=== PATIENT | male | born 1960 | race Caucasian/White ===

== ENCOUNTER 2020-02-21 11:26 | Emergency (ER) | payer OTHER, SELFPAY ==
--- NOTE | ~2020-02-21 | CT_ITS ---
EXAMINATION: CTA chest abdomen pelvis DATE: 02/21/2020 18:03 INDICATION: Left flank pain, history of pulmonary embolism, tobacco use TECHNIQUE: Computed tomographic angiography (CTA) of the chest, abdomen, and pelvis was performed wit h 100 mL Omnipque-350 intravenous contrast. Maximum intensity projection 3D-reconstructions of the ao rta and other arteries were constructed by the technologist on a separate workstation. The dose-lengt h product (DLP) was 1852.73 mGy-cm. Automated exposure control and iterative reconstruction technique were employed. COMPARISON: None. FINDINGS: CHEST CTA: There is no aneurysm or dissection of the thoracic aorta. The heart size is normal. There is a 1.8 cm left thyroid nodule. Although slightly limited by respiratory motion artifact, no focal airspace op[place] cities are identified. There is no pleural effusion or pneumothorax. No pathologically enlarged thora cic lymph nodes are identified. The heart size is normal. Healed bilateral rib fractures are noted. ABDOMEN AND PELVIS CTA: There is no aneurysm or dissection of the abdominal aorta. The celiac axis, superior mesenteric arter y, and inferior mesenteric artery are unremarkable. There is calcified atherosclerosis without stenos is in the proximal renal arteries. Single renal arteries are present bilaterally. A filter is noted i n the inferior vena cava. There is calcified atherosclerosis of the origin of the right internal juan c artery with moderate stenosis. The liver is diffusely low in attenuation when compared with the spl een, consistent with hepatic steatosis. The spleen, pancreas, gallbladder, and adrenal glands are nor mal. The kidneys are unremarkable. No pathologically enlarged abdominal or pelvic lymph nodes are walter ntified. There is no free intraperitoneal gas or evidence of bowel obstruction. There are umbilical a nd bilateral inguinal hernias containing fat. There are bilateral L5 pars defects with moderate loss of intervertebral disc space height at L5-S1. IMPRESSION: 1. No CT correlate for the patient's symptoms. 2. Left thyroid nodule. Consider follow-up with nonemergent thyroid ultrasound for risk stratificatio n. Reviewed, dictated and finalized at location A. IMPRESSION: 1. No CT correlate for the patient's symptoms. 2. Left thyroid nodule. Consider follow-up with nonemergent thyroid ultrasound for risk stratification.
[2020-02-21 13:05] VITALS: BP 174/11; PULSE 75; RESP 20; TEMP 37.2; O2SAT 99
[2020-02-21 13:35] LABS: Basophils Absolute Auto 0.1 K/mm3 (0.0-0.1); Basophils Percent Auto 1.1 % (0.2-1.2); Eosinophils Absolute Auto 0.1 K/mm3 (0-0.3); Eosinophils Percent Auto 1.9 % (0-4.4); Hematocrit 41.2 % (42.0-52.0); Hemoglobin 14.4 g/dL (14.0-18.0); Immature Granulocyte Absolute 0.02 K/mm3 (0.00-0.031); Immature Granulocyte Percent A 0.3 % (0-0.5); Lymphocytes Absolute Auto 1.31 K/mm3 (0.9-3.2); Lymphocytes Percent Auto 21.3 % (18.3-44.2); Mean Corpuscular Hemoglobin 31.7 pg (26-34); Mean Corpuscular Volume 90.7 fl (80-100); Mean Platelet Volume 8.8 fl (7.4-10.4); Monocytes Absolute Auto 0.5 K/mm3 (0.1-0.6); Monocytes Percent Auto 8.6 % (2.6-8.5); Neutrophils Absolute Auto 4.1 K/mm3 (1.3-6.7); Neutrophils Percent Auto 66.8 % (45.5-73.1); Platelet Count Result 254 k/mm3 (150-375); Red Blood Count 4.54 M/mm3 (4.6-6.20); White Blood Count 6.2 K/mm3 (4.5-10.0)
[2020-02-21 13:37] LABS: Add Urine Microscopic? NO; Appearance Urine Clear (Clear); Bilirubin Urine Negative (Negative); Blood Urine Negative (Negative); Color Urine Yellow (Yellow); Glucose Urine UA Negative (Negative); Ketones Urine Negative (Negative); Leukocyte Esterase Ur Negative LEU/UL (Negative); Nitrate Urine Negative (Negative); Protein Urine Negative (Negative); Specific Grav Ur 1.011 (1.001-1.035); Urobilinogen Urine Negative mg/dL (<2.0)
[2020-02-21 13:48] LABS: Anion Gap 7 mmol/L (8-16); Blood Urea Nitrogen 8 mg/dL (9-20); Calcium 9.1 mg/dL (8.4-10.2); Carbon Dioxide 27 mmol/L (22-30); Chloride 98 mmol/L (98-107); Estimated CRCL calculation 138 ml/min; Estimated Glomerular Filt Rate > 60; Glucose 93 mg/dL (75-110); Potassium 4.2 mmol/L (3.4-5.0); Sodium 132 mmol/L (137-145)
[2020-02-21 16:06] VITALS: BP 166/108; PULSE 91; RESP 18; O2SAT 97
--- NOTE | 2020-02-21 16:47 | ED.ABDPAIN ---
HPI - Abdominal Pain General Chief Complaint: Abdominal Pain <Micha Engel PA-C - Last Filed: 02/21/20 18:32> Stated Complaint: UC sent me left lower flank pain, blood in urine. <Micha Engel PA-C - Last Filed: 02/21/20 18:32> Time Seen by Provider: 02/21/20 16:40 <Micha Engel PA-C - Last Filed: 02/21/20 18:32> Source: patient and old records reviewed <Micha Engel PA-C - Last Filed: 02/21/20 18:32> Mode of arrival: ambulatory <Micha Engel PA-C - Last Filed: 02/21/20 18:32> Limitations: no limitations <LOIS Townsend Last Filed: 02/21/20 18:32> History of Present Illness HPI narrative: Patient is a 59-year-old male who presents to emergency department for evaluation of left flank pain patient developed the pain over the weekend picking an object up with a sharp stabbing pain that has been persistent is worse with certain movements activity and applying pressure to the left flank region at the level of the ribs patient notes that he has history of pulmonary embolus patient notes cough which she attributes to smoking patient is currently not on any medications patient presents in no distress denies URI symptoms vomiting urinary or bowel changes patient was seen in urgent care referred for flank pain and blood in his urine patient denies similar occurrence in the past and on arrival is noted is in no distress and does not appear uncomfortable pain does not radiate <Micha Engel PA-C - Last Filed: 02/21/20 18:32> Related Data Allergies/Adverse Reactions: Allergies Allergy/AdvReac Type Severity Reaction Status Date / Time No Known Allergies Allergy Verified 02/21/20 13:11 <Micha Engel PA-C - Last Filed: 02/21/20 18:32> Review of Systems Review of Systems: All systems reviewed & are unremarkable except as noted in HPI and below <Micha Engel PA-C - Last Filed: 02/21/20 18:32> PMFSH Past Medical History Medical History: Medical History (Updated 02/21/20 @ 18:31 by Micha Engel PA-C) Peripheral arterial disease Pulmonary embolus <Micha Engel PA-C - Last Filed: 02/21/20 18:32> Social History Social History: Social History (Updated 02/21/20 @ 16:49 by Micha Engel PA-C) Smoking status: Current every day smoker Alcohol intake: current Gender identity (if verbalized by the patient): Male Sexual Orientation (if Verbalized by the Patient): Straight or Heterosexual <Micha Engel PA-C - Last Filed: 02/21/20 18:32> Exam Narrative: Exam Narrative: GENERAL: Well-appearing, well-nourished, and in no acute distress. HEAD: Normocephalic, atraumatic. EYES: PERRLA and EOMI. ENT: Nares clear, no rhinorrhea or epistaxis. Mucous membranes moist. Oropharynx without tonsillar hypertrophy exudate or other lesions. NECK: Supple. No adenopathy or masses. No carotid bruits or JVD CHEST: Clear to auscultation. No respiratory distress. No wheezes rales or rhonchi HEART: Regular rate and rhythm. No murmur heard. Normal peripheral pulses. ABDOMEN: Soft, nontender,distended. EXTREMITIES: Normal range of motion. No edema. Tenderness of the left flank region at the level of the lower ribs no deformity or skin changes noted SKIN: Warm, dry, no rash. NEURO: No focal deficits. Alert and oriented x3. PSYCH: Normal mood and affect. <Micha Engel PA-C - Last Filed: 02/21/20 18:32> Course Course Emergency Course: Patient in the room in no distress likely with strain of the abdominal wall secondary to lifting patient also probably with bronchitis with wheezing will be treated for both sent home with an MDI advised to follow with primary care given reasons to return <Micha Engel PA-C - Last Filed: 02/21/20 18:32> Vital Signs Vital signs: Vital Signs Temperature 99.0 F 02/21/20 13:05 Pulse Rate 75 02/21/20 13:05 Respiratory Rate 20 02/21/20 13:05 Blood Pressure 174/11 H 10/0
[2020-02-21 18:14] LABS: Alanine Aminotransferase 36 U/L (4-50); Alkaline Phosphatase 83 U/L (38-126); Aspartate Amino Transferase 40 U/L (17-59); Bilirubin,Total 1.5 mg/dL (0.2-1.3); Lipase 57 U/L (23-300)
[2020-02-21 18:17] LABS: Partial Thromboplastin Time 28.5 SECONDS (22.3-36.8); Prothrombin Time 13.3 Seconds (11.1-14.7)
[2020-02-21] MEDS: methylPREDNISolone SOD SUCC 125 MG VIAL IV PUSH (18:27)
[2020-02-21 18:49] VITALS: BP 152/89; PULSE 88; RESP 17; O2SAT 96
== END 2020-02-21 18:50 | disposition home or self-care (01) ==
PROVIDERS: Emergency Medicine; Emergency Medicine Emergency Medical Services; Emergency Provider General Practice; PCP Internal Medicine
DX: R10.9 Unspecified abdominal pain (principal); J40 Bronchitis, not specified as acute or chronic; F17.200 Nicotine dependence, unspecified, uncomplicated; I73.9 Peripheral vascular disease, unspecified; Z86.711 Personal history of pulmonary embolism
CPT/HCPCS: 36415; 71275; 74174; 80048; 80076; 81003; 83690; 85025; 85610; 85730; 96374; 96375; 99284; J0131; J2930; Q9967

== ENCOUNTER 2022-11-27 13:18 | Inpatient (IN) | payer MEDICAID, SELFPAY ==
[2022-11-27] VITALS (29 sets, daily range): BP systolic 85–129; BP diastolic 62–97; PULSE 81–109; RESP 14–96; TEMP 35.7–36.6; O2SAT 19–100; BMI 28.3
--- NOTE | ~2022-11-27 | CT_ITS ---
EXAMINATION: CT abdomen pelvis wo con DATE: 11/30/2022 09:49 INDICATION: Retroperitoneal hematoma. TECHNIQUE: Computed tomography (CT) of the abdomen and pelvis was performed without intravenous contr ast. Automated exposure control and iterative reconstruction technique were employed. The dose-length product was 1732.60 mGy-cm. COMPARISON: CT abdomen and pelvis 11/27/2022, 02/21/2020 FINDINGS: The visualized portions of the lung bases demonstrate mild atelectasis. No pleural effusion . The heart size is normal. No pericardial effusion. There is diffuse hepatic steatosis. There is a 1 3 mm mass right hepatic lobe, stable from 02/21/2020, likely benign. The spleen, gallbladder, pancreas , adrenal glands, and left kidney are normal. There is a 1.9 cm cyst in right kidney. There is a filt er in the inferior vena cava. There is a large right retroperitoneal hematoma, stable from 11/27/2022. There is calcified atherosclerosis of the aorta and many of the other arteries. There are bilateral inguinal hernias containing fat. There are no pathologically enlarged lymph nodes. There is edema in the thighs. There are chronic small radiopaque foreign bodies in anterior right thigh. There are instructor knitting james bilateral L5 pars defects. There is 3 mm anterolisthesis of L5 on S1. There is moderate lower lum bar spondylosis. IMPRESSION: 1. Large right retroperitoneal hematoma, stable from 11/27/2022. 2. Diffuse hepatic steatosis. Reviewed, dictated and finalized at location A.
--- NOTE | ~2022-11-27 | CT_ITS ---
EXAMINATION: CTA chest DATE: 11/27/2022 14:37 INDICATION: Chest pain. TECHNIQUE: Computed tomographic angiography (CTA) of the chest was performed with 150 mL Omnipaque-35 0 intravenous contrast. Automated exposure control and iterative reconstruction technique were employ ed. The dose-length product was 2087.08 mGy-cm. Maximum intensity projection 3D-reconstructions of th e aorta and other arteries were constructed by the technologist on a separate workstation. COMPARISON: Chest CT 02/21/2020 FINDINGS: There is mild atelectasis in left lung. No pleural effusion. There is a 2.0 cm nodule in le ft thyroid lobe. The heart size is normal. There are coronary artery calcifications. No pericardial e ffusion. There is mild aortic atherosclerosis. No aneurysm or dissection. There is mild thoracic spon dylosis. Thoracic dextroscoliosis is noted. IMPRESSION: 1. Mild aortic atherosclerosis. No aneurysm or dissection. 2. Left thyroid nodule. Consider thyroid ultrasound for risk stratification. Reviewed, dictated and finalized at location E.
--- NOTE | ~2022-11-27 | XR_ITS ---
AP view of the pelvis and AP and lateral views of the right hip Clinical history: Pain Findings: No acute fracture or dislocation is seen. Osseous alignment is anatomic. Bilateral hip and SI joint spaces are preserved. Soft tissues are unremarkable. Impression: No significant abnormality is seen. Reviewed, dictated and finalized at location . Impression: No significant abnormality is seen.
--- NOTE | ~2022-11-27 | CT_ITS ---
Clinical Indication: Hematoma, hip pain CT Scan of the Chest, Abdomen, and Pelvis without Contrast: Technique: Contiguous sections were acquired throughout the chest, abdomen, and pelvis without IV con trast administration. Dose reduction technique was used on this scan by utilizing automated exposure control and iterative reconstruction technique. The dose-length product (DLP) was 2006.31 mGy-cm. COMPARISON: 11/30/2022 and 11/27/2022 Findings: There is no evidence of any significant mediastinal, hilar or axillary lymphadenopathy. Coronary annalisa ry calcifications are present. There is no evidence of pleural or pericardial effusion. There is discoid left upper lobe atelectasis or scarring.. Lungs are otherwise clear. The liver, spleen, pancreas, gallbladder, adrenals and kidneys are within normal limits. There are at herosclerotic calcifications of the aorta. IVC filter present. No lymphadenopathy. No bowel obstruction or bowel wall thickening. There is no evidence to suggest acute appendicitis. La rge ovoid right retroperitoneal hematoma is essentially stable from prior exam (coronal image 72). Urinary bladder is unremarkable. Prostate gland and seminal vesicles are unremarkable. Bilateral L5 p ars interarticularis defects are present. No subluxation evident. Impression: Large right retroperitoneal hematoma is unchanged. No other significant findings. Reviewed, dictated and finalized at location . Impression: Large right retroperitoneal hematoma is unchanged. No other significant findings.
--- NOTE | ~2022-11-27 | US_ITS ---
EXAMINATION: US abdomen limited DATE: 11/28/2022 08:02 INDICATION: Right lower quadrant abdominal hematoma. TECHNIQUE: Multiple grayscale and Doppler ultrasound images of the abdomen were obtained. COMPARISON: CT abdomen and pelvis 11/27/2022 FINDINGS: The right kidney is normal. There is heterogeneous echogenicity in the right lower quadrant . IMPRESSION: 1. The right lower quadrant hematoma is not well visualized by ultrasound. If imaging follow-up is de sired, CT is recommended. Reviewed, dictated and finalized at location E. IMPRESSION: 1. The right lower quadrant hematoma is not well visualized by ultrasound. If i maging follow-up is desired, CT is recommended.
--- NOTE | ~2022-11-27 | CT_ITS ---
EXAMINATION: CTA abd aorta runoff DATE: 11/27/2022 14:37 INDICATION: Abdominal pain. TECHNIQUE: Computed tomographic angiography (CTA) of the abdominal, pelvis, and both lower extremitie s was performed with 150 mL Omnipaque-350 intravenous contrast. Automated exposure control and iterat bob reconstruction technique were employed. The dose-length product was 2087 mGy-cm. Maximum intensit y projection 3D-reconstructions of the arteries were created by the technologist [facility] COMPARISON: CT abdomen and pelvis 02/21/2020 FINDINGS: ABDOMINAL AORTA AND ITS BRANCHES: Aortic atherosclerosis is noted. No aneurysm or dissection. There is no significant stenosis of arlette c axis or superior mesenteric artery. There is no significant stenosis of the renal arteries or infer ior mesenteric artery. PELVIC VASCULATURE: There is no significant stenosis of the common iliac arteries, internal iliac arteries, or external i liac arteries. RIGHT LOWER EXTREMITY VASCULATURE: There is no significant stenosis of right common femoral artery, profunda femoral artery, superficial femoral artery, popliteal artery, tibioperoneal trunk, peroneal artery, anterior tibial artery, or p osterior tibial artery. LEFT LOWER EXTREMITY VASCULATURE: There is no significant stenosis of left common femoral artery, profunda femoral artery, superficial femoral artery, popliteal artery, tibioperoneal trunk, peroneal artery, anterior tibial artery, or po sterior tibial artery. ADDITIONAL FINDINGS: There is diffuse hepatic steatosis. The gallbladder, spleen, pancreas, adrenal glands, and left kidne y are normal. There is a 2.0 cm cyst in right kidney. There is a filter in the inferior vena cava. Th ere are no dilated loops of bowel. The appendix is not visualized. There is a large right retroperito annie hematoma. There are no pathologically enlarged lymph nodes. There are bilateral inguinal hernias containing fat. There are chronic bilateral L5 pars defects. There is 3 mm anterolisthesis of L5 on S1. There is moderate lumbar spondylosis. IMPRESSION: 1. Large right retroperitoneal hematoma. 2. No significant arterial occlusive disease. Reviewed, dictated and finalized at location E.
--- NOTE | ~2022-11-27 | US_ITS ---
EXAMINATION: US thyroid DATE: 11/28/2022 08:02 INDICATION: Thyroid nodule. TECHNIQUE: Multiple ultrasound images of the thyroid were obtained. COMPARISON: Chest CT 11/27/2022 FINDINGS: The right thyroid lobe measures 5.1 x 1.6 x 1.5 cm. The left thyroid lobe measures 4.7 x 2.5 x 2.1 c m. In the left thyroid lobe, there is a 2.1 cm almost entirely cystic nodule (TI-RADS TR1). IMPRESSION: 1. Benign left thyroid nodule. No follow-up is needed. Reviewed, dictated and finalized at location E.
--- NOTE | ~2022-11-27 | US_ITS ---
US venous doppler [facility] DATE: 11/28/2022 08:02 INDICATION: Edema of the lower extremities TECHNIQUE: Real-time and color flow imaging and Doppler analysis of the veins of both lower extremiti es COMPARISON: July 15, 2011 venous duplex examination of the lower extremities, reported normal FINDINGS: Thrombus is identified within the greater saphenous veins bilaterally in addition to bilate ral common femoral, femoral and popliteal veins. IMPRESSION: Extensive bilateral deep venous thrombosis Thrombus is identified within both greater saphenous veins. Dr. Chinchilla telephoned the report on 11/28/2022 at 1053 hours to Nurse Maddison. Reviewed, dictated and finalized at [facility]. Reviewed, dictated and finalized at [facility]. IMPRESSION: Extensive bilateral deep venous thrombosis Thrombus is identified within both greater saphenous veins. Dr. Chinchilla telephoned the report on 11/28/2022 at 1053 hours to Rosalinda Washburn.
--- NOTE | 2022-11-27 13:52 | ECG_ITS ---
Measurements Intervals [place] Rate: 105 P: 35 NH: 159 QRS: 22 QRSD: 84 T: 34 QT: 313 QTc: 414 Interpretive Statements SINUS TACHYCARDIA DELAYED PRECORDIAL R/S TRANSITION BASELINE ARTIFACT- I, II, III, AVR, AVL, AVF, V6 ABNORMAL ECG NO PREVIOUS ECG AVAILABLE FOR COMPARISON Electronically Signed On 11-27-2022 14:59:36 CDT by Rafal Carpenter D.O.
[2022-11-27 14:01] LABS: Basophils Absolute Auto 0.1 K/mm3 (0.0-0.1); Basophils Percent Auto 0.5 % (0.2-1.2); Eosinophils Percent Auto 0.4 % (0-4.4); Hematocrit 41.4 % (42.0-52.0); Hemoglobin 14.1 g/dL (14.0-18.0); Immature Granulocyte Absolute 0.08 K/mm3 (0.00-0.031); Immature Granulocyte Percent A 0.7 % (0-0.5); Lymphocytes Absolute Auto 1.11 K/mm3 (0.9-3.2); Lymphocytes Percent Auto 9.7 % (18.3-44.2); Mean Corpuscular HGB Conc 34.1 g/dl (32-36); Mean Corpuscular Hemoglobin 32.7 pg (26-34); Mean Corpuscular Volume 96.1 fl (80-100); Mean Platelet Volume 9.2 fl (7.4-10.4); Monocytes Absolute Auto 1.1 K/mm3 (0.1-0.6); Monocytes Percent Auto 9.7 % (2.6-8.5); Platelet Count Result 175 k/mm3 (150-375); Red Blood Count 4.31 M/mm3 (4.6-6.20); Red Cell Distribution Width 13.5 % (11.5-14.5); White Blood Count 11.4 K/mm3 (4.5-10.0)
[2022-11-27 14:12] LABS: Alanine Aminotransferase 33 U/L (6-50); Albumin Level 4.1 g/dL (3.5-5.1); Alkaline Phosphatase 126 U/L (38-126); Anion Gap 13 mmol/L (8-16); Aspartate Amino Transferase 53 U/L (17-59); Bilirubin,Total 2.7 mg/dL (0.2-1.3); Blood Urea Nitrogen 10 mg/dL (9-20); Carbon Dioxide 15 mmol/L (22-30); Chloride 93 mmol/L (98-107); Estimated CRCL calculation 103 ml/min; Estimated Glomerular Filt Rate > 60; Glucose 185 mg/dL (65-110); Lipase 54 U/L (23-300); Sodium 121 mmol/L (137-145)
--- NOTE | 2022-11-27 14:31 | ED.GENADULT ---
HPI - General Adult General Chief complaint: Abdominal Pain <Delvis Vu PA-C - Last Filed: 11/27/22 18:36> Stated complaint: ab pain, RLQ, vomiting x2 days <Delvis Vu PA-C - Last Filed: 11/27/22 18:36> Time Seen by Provider: 11/27/22 14:01 <Delvis Vu PA-C - Last Filed: 11/27/22 18:36> Source: patient <Delvis Vu PA-C - Last Filed: 11/27/22 18:36> Mode of arrival: ambulatory <Delvis Vu PA-C - Last Filed: 11/27/22 18:36> Limitations: no limitations <Delvis Vu PA-C - Last Filed: 11/27/22 18:36> History of Present Illness HPI narrative: This is a 62-year-old male who presents to the ED via EMS with chief complaint of lower abdominal pain beginning 2 days ago and continuously worsening until today. Patient states the pain started out in the back and has since localized to the lower abdomen all across the belly. He reports while in the triage area he started to have some left foot numbness which was very new to him. He states he has never had anything like this in the past. Reports associated nausea and vomiting. Reports diaphoresis. Also notes some difficulty with urination over the past couple of days. Denies chest pain, shortness of breath, cough, headache, LOC. <Delvis Vu PA-C - Last Filed: 11/27/22 18:36> Related Data Home medications: Home Medications Medication Instructions Recorded Confirmed No Home Medications 11/27/22 11/27/22 <Delvis Vu PA-C - Last Filed: 11/27/22 18:36> Allergies/adverse reactions: Allergies Allergy/AdvReac Type Severity Reaction Status Date / Time No Known Allergies Allergy Verified 02/21/20 13:11 <Delvis Vu PA-C - Last Filed: 11/27/22 18:36> [facility] Past Medical History Medical History: Medical History (Updated 11/27/22 @ 18:07 by Delvis Vu PA-C) Peripheral arterial disease Pulmonary embolus <Delvis Vu PA-C - Last Filed: 11/27/22 18:36> Family History Family History: Family History (Updated 11/27/22 @ 20:19 by Shawn Alfred RN) Mother Atrial fibrillation <Delvis Vu PA-C - Last Filed: 11/27/22 18:36> Social History Social History: Social History (Updated 02/21/20 @ 16:49 by Micha EngelLOIS) Smoking status: Current every day smoker Tobacco type: cigarettes Alcohol intake: current Lack of Transportation: No Lack of Food: Never True Current Housing: I Have Housing Concerned About Future Housing: No Difficulty Paying Gas/Electric Bills: YES Difficulty Paying for Meds: YES Currently Unemployed: No Education: High School Diploma/GED Difficulty w/ Childcare or Family Care: No Gender identity (if verbalized by the patient): Male Sexual Orientation (if Verbalized by the Patient): Straight or Heterosexual Spiritual care concerns: No <Delvis Vu PA-C - Last Filed: 11/27/22 18:36> Exam Narrative: GENERAL: Appears in pain. Diaphoretic. Laying on his side. HEAD: Normocephalic, atraumatic. EYES: PERRLA and EOMI. ENT: Nares clear, no rhinorrhea or epistaxis. Mucous membranes moist. Oropharynx without tonsillar hypertrophy exudate or other lesions. NECK: Supple. No adenopathy or masses. CHEST: No respiratory distress. Clear to auscultation. No wheezes rales or rhonchi HEART: Regular rate and rhythm. No murmur heard. ABDOMEN: Obese abdomen. no bruising. Right lower quadrant, suprapubic, and left lower quadrant tenderness present. No flank tenderness. Soft, nondistended, normal active bowel sounds. MSK: Bilateral feet are erythematous and slightly cool to touch. Diminished pulses bilaterally. SKIN: Warm, dry, no rash. NEURO: Alert and oriented x3. No focal deficits. PSYCH: Normal mood and affect. <Delvis Vu PA-C - Last Filed: 11/27/22 18:36> Course HOTEL RECEPTIONIST/PA Physician Supervision For this patient encounter, I reviewed the HOTEL RECEPTIONIST or PA documentation, treatment plan, and I was responsible f
[2022-11-27] MEDS: SODIUM CHLORIDE 0.9% IV 1,000 ML 999 ML IV CONT ×2 (14:45→14:46)
[2022-11-27] MEDS: ONDANSETRON INJ 4 MG/2 ML VIAL IV PUSH (14:46)
[2022-11-27] MEDS: fentaNYL CITRATE INJ (*CRX) 100 MCG/2 ML VIAL 50 MCG IV PUSH ×2 (14:46→15:49)
[2022-11-27 15:01] LABS: CRP 6.4 mg/dL (<1.0)
[2022-11-27 15:19] LABS: Appearance Urine Clear (Clear); Bacteria Urine None Seen /hpf; Bilirubin Urine Negative (Negative); Blood Urine Negative (Negative); Color Urine Yellow (Yellow); Glucose Urine UA Trace mg/dL (Negative); Ketones Urine Negative (Negative); Leukocyte Esterase Ur Negative LEU/UL (Negative); Nitrate Urine Negative (Negative); Non Pathogenic Casts 0-2; Protein Urine 1+ mg/dL (Negative); RBC Urine 0-2 /hpf (0-2); Squamous Epithelial Cell Urine None seen /hpf (Few); pH Urine 7.5 (5.0-9.0)
[2022-11-27 15:22] LABS: Add Urine Microscopic? YES
--- NOTE | 2022-11-27 16:53 | PC.NURSE ---
Patient report given to JAH Martinez. All questions answered and care of patient transferred.
[2022-11-27] MEDS: MORPHINE SULFATE (*CRX) 4 MG/ML INJ IV PUSH ×3 (18:16→23:38)
[2022-11-27 18:27] LABS: Hematocrit 36.4 % (42.0-52.0); Hemoglobin 12.6 g/dL (14.0-18.0)
--- NOTE | 2022-11-27 20:21 | ADMGEN ---
This patient, Dre Yoder, was admitted to [facility] Surg Room 329-01. Patient/family oriented to hospital policies and general routines including ID bracelet, bed and alarms, visiting hours, pain management, procedures, bathroom and other care routines, personal items, smoking policy, room service/diet, and visiting hours. Information on how to activate the Rapid Response Team has been discussed. Patient/Family are encouraged to report perceived risks to care and to ask questions if they do not understand what they are told or what they should do.
--- NOTE | 2022-11-27 21:06 | PM.IMHP ---
H&P: HPI History of Present Illness Date/Time: 11/27/22 21:06 Chief Complaint: Abdominal pain Narrative: This is a 62-year-old male patient who came to the emergency room with a chief complaint of lower abdominal pain that began 2 days ago. The pain gets worse with movement. The patient stated that he has right flank pain and it has moved to his right lower quadrant across his abdomen. The patient stated he has not lifted anything heavy nor has he had any injury. The patient is not on any blood thinners. The patient was complaining of numbness to the right foot in triage. The patient also is having dark urine and decreased urination. He denies any fever chills any chest pain or shortness of breath or any headache. His white count is 11.4. H&H is 12.6 and 36.4. Earlier his H&H was normal 14.1 and 41.4. Chest CTA was read as the following. Mild aortic atherosclerosis. No aneurysm or dissection. 2. Left thyroid nodule. Consider thyroid ultrasound for risk stratification. Aortic with runoff CTA was read as1.? Large right retroperitoneal hematoma. 2. No significant arterial occlusive disease. His platelets are low at 175. The patient was given fentanyl, Zofran and 2 L of IV fluids. The patient is being admitted to observation status on the date of service 11/27/2022. Review of Systems Review of Systems: All systems reviewed & are unremarkable except as noted in HPI and below Constitutional: Constitutional: Reports as per HPI and Reports no additional constitutional complaints Eyes: Eyes: Reports as per HPI and Reports no additional eye complaints ENT: Reports system reviewed and no additional complaints, except as documented and Reports Normal hearing present Cardiovascular: Cardiovascular: Reports no additional cardiovascular complaints Respiratory: Respiratory: Reports no additional respiratory complaints and Reports no additional respiratory complaints Gastrointestinal: Gastrointestinal: Reports as per HPI and Reports no additional gastrointestinal complaints Musculoskeletal: Musculoskeletal: Reports no additional musculoskeletal complaints Integumentary/Breasts: Skin/Breast: Reports system reviewed and no additional complaints, except as docu and Reports as per HPI Neurologic: Reports system reviewed and no additional complaints, except as documented, Reports as per HPI and Reports Normal hearing present Psychiatric: Psychiatric: Reports no additional psychiatric complaints and Reports as per HPI Endocrine: Endocrine: Reports no additional endocrine complaints Hematologic/Lymphatic: Hematologic/Lymphatic: Reports no additional hematologic/lymphatic complaints Allergic/Immunologic: Allergic/Immunologic: Reports no additional allergic/immunologic complaints [facility] Past Medical History Medical History (Updated 11/27/22 @ 23:58 by Aleksandra Gauthier NP) Peripheral arterial disease Pulmonary embolus Surgical History Surgical History (Updated 11/27/22 @ 23:47 by Aleksandra Gauthier NP) History of shoulder surgery Status post surgical removal of neoplasm of 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 Family History Family History Mother Atrial fibrillation Social History Social History (Updated 11/27/22 @ 23:49 by Aleksandra Gauthier NP) Social History: The patient is and has no biological children. He has a stepdaughter who is a nurse practitioner. The patient retired from [employer]. He denies any alcohol marijuana or illicit drugs. His is the durable power criminal defense attorney for healthcare. Code status full code Smoking status: Current every day smoker Tobacco type: cigarettes Alcohol intake: current Lack of Transportation: No Lack of Food: Never True Current Housing: I Have Housing Concerned About Future Housing: No Difficulty Paying Gas/Electric Bills: YES Difficulty Paying for Meds: YES Currently Unemployed: No
[2022-11-28 01:27] LABS: Hematocrit 34.9 % (42.0-52.0); Hemoglobin 11.8 g/dL (14.0-18.0)
[2022-11-28] MEDS: MORPHINE SULFATE (*CRX) 4 MG/ML INJ IV PUSH ×7 (02:47→22:47)
[2022-11-28 06:00] VITALS: BP 150/81; PULSE 87; RESP 20; TEMP 36.4; O2SAT 97
[2022-11-28 06:38] LABS: Basophils Percent Auto 0.4 % (0.2-1.2); Eosinophils Absolute Auto 0.1 K/mm3 (0-0.3); Eosinophils Percent Auto 0.6 % (0-4.4); Hematocrit 33.3 % (42.0-52.0); Hemoglobin 11.1 g/dL (14.0-18.0); Immature Granulocyte Absolute 0.07 K/mm3 (0.00-0.031); Immature Granulocyte Percent A 0.7 % (0-0.5); Lymphocytes Absolute Auto 1.49 K/mm3 (0.9-3.2); Lymphocytes Percent Auto 14.5 % (18.3-44.2); Mean Corpuscular HGB Conc 33.3 g/dl (32-36); Mean Corpuscular Hemoglobin 32.6 pg (26-34); Mean Corpuscular Volume 97.7 fl (80-100); Mean Platelet Volume 9.5 fl (7.4-10.4); Monocytes Absolute Auto 1.3 K/mm3 (0.1-0.6); Monocytes Percent Auto 12.2 % (2.6-8.5); Neutrophils Absolute Auto 7.4 K/mm3 (1.3-6.7); Neutrophils Percent Auto 71.6 % (45.5-73.1); Platelet Count Result 122 k/mm3 (150-375); Red Blood Count 3.41 M/mm3 (4.6-6.20); Red Cell Distribution Width 13.4 % (11.5-14.5); White Blood Count 10.3 K/mm3 (4.5-10.0)
[2022-11-28 06:50] LABS: Alanine Aminotransferase 28 U/L (6-50); Albumin Level 3.6 g/dL (3.5-5.1); Alkaline Phosphatase 97 U/L (38-126); Anion Gap 9 mmol/L (8-16); Aspartate Amino Transferase 40 U/L (17-59); Bilirubin,Total 1.5 mg/dL (0.2-1.3); Blood Urea Nitrogen 15 mg/dL (9-20); Calcium 8.4 mg/dL (8.4-10.2); Carbon Dioxide 21 mmol/L (22-30); Chloride 93 mmol/L (98-107); Estimated CRCL calculation 66 ml/min; Estimated Glomerular Filt Rate > 60; Glucose 126 mg/dL (65-110); Magnesium 2.3 mg/dL (1.6-2.3); Potassium 4.6 mmol/L (3.4-5.0); Sodium 123 mmol/L (137-145)
[2022-11-28] MEDS: SODIUM CHLORIDE 0.9% IV 1,000 ML 100 ML IV CONT ×2 (08:52)
[2022-11-28 09:20] LABS: Creatinine Urine 317.1 mg/dL
[2022-11-28 09:53] LABS: Sodium Urine Random < 5 meq/L
--- NOTE | 2022-11-28 12:21 | P.PNIM_ITS ---
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, bilateral Code(s): I82.453 - Acute embolism and thrombosis of peroneal vein, bilateral Status: Acute Assessment and Plan: * Chronic since 2010 (11/28/2022 reviewed old chart notes and venous dopplers) * Inferior vena cava filter placed 2010 prior to tx for 6 months with warfarin * Sedentary lifestyle, morbid obesity, smoking are likely contributing factors * Thrombophilia due to occult neoplasm is a consideration * Genetic thrombophilia less likely w/o family hx * In the presence of an acute bleed and with IVC filter in place, NO anticoagulation now (3) Anemia due to acute blood loss: Code(s): D62 - Acute posthemorrhagic anemia Status: Acute Assessment and Plan: * Relatively stable since admission * 11/28/2022 Hgb 11.1 * F/u h/h * Stool for occult blood (4) Alcohol use, unspecified with unspecified alcohol-induced disorder: Code(s): F10.99 - Alcohol use, unspecified with unspecified alcohol-induced disorder Status: Acute Assessment and Plan: * [place] protocol * PRN lorazepam (5) Thyroid nodule: Code(s): E04.1 - Nontoxic single thyroid nodule Status: Acute Assessment and Plan: * Discovered on Chest CTA * U/s pending (6) Fatty liver due to alcoholism: Code(s): K70.0 - Alcoholic fatty liver Status: Acute Assessment and Plan: * 11/28/22 d/w pt and his spouse his excessive alcohol intake (7) Inguinal hernia bilateral, non-recurrent: Qualifiers: Obstruction and gangrene presence: without obstruction or gangrene Recurrence: not specified as recurrent Qualified Code(s): K40.20 - Bilateral inguinal hernia, without obstruction or gangrene, not specified as recurrent Code(s): K40.20 - Bilateral inguinal hernia, without obstruction or gangrene, not specified as recurrent Status: Acute Assessment and Plan: * Asymptomatic (8) Nicotine dependence: Qualifiers: Nicotine product type: cigarettes Substance use status: uncomplicated Qualified Code(s): F17.210 - Nicotine dependence, cigarettes, uncomplicated Code(s): F17.200 - Nicotine dependence, unspecified, uncomplicated Status: Acute Assessment and Plan: * 11/28/2022 he declined a nicotine patch (9) Chronic low back pain with bilateral sciatica: Qualifiers: Back pain laterality: bilateral Qualified Code(s): M54.42 - Lumbago with sciatica, left side; M54.41 - Lumbago with sciatica, right side; G89.29 - Other chronic pain Code(s): M54.41 - Lumbago with sciatica, right side; M54.42 - Lumbago with sciatica, left side; G89.29 - Other chronic pain Status: Acute Assessment and Plan: * Severe pain, worse with standing, with bilateral leg pain * CTA Abd/Pelvis showed bilateral L5 pars defect and 3 mm anterolisthesis L5 on S1 * Suspect spinal stenosis Subjective Date/time seen: 11/28/22 12:21 Interval history: 62-year-old gentleman with chronic low back pain radiating to both posterior thighs worse on the right an
--- NOTE | 2022-11-28 12:21 | PM.IMPN ---
Progress Note: A&P Assessment and Plan (1) Nontraumatic retroperitoneal hematoma: Code(s): K66.1 - Hemoperitoneum Status: Acute Assessment and Plan: Etiology unclear Abd/Pelvis CTA w/o obvious vascular abnormality Has only mild thrombocytopenia and no other abnormal bleeding or bruising PT, PTT pending Monitor h/h (2) Deep venous thrombosis (DVT) of both peroneal veins: Qualifiers: Chronicity: chronic Qualified Code(s): I82.553 - Chronic embolism and thrombosis of peroneal vein, bilateral Code(s): I82.453 - Acute embolism and thrombosis of peroneal vein, bilateral Status: Acute Assessment and Plan: Chronic since 2010 (11/28/2022 reviewed old chart notes and venous dopplers) Inferior vena cava filter placed 2010 prior to tx for 6 months with warfarin Sedentary lifestyle, morbid obesity, smoking are likely contributing factors Thrombophilia due to occult neoplasm is a consideration Genetic thrombophilia less likely w/o family hx In the presence of an acute bleed and with IVC filter in place, NO anticoagulation now (3) Anemia due to acute blood loss: Code(s): D62 - Acute posthemorrhagic anemia Status: Acute Assessment and Plan: Relatively stable since admission 11/28/2022 Hgb 11.1 F/u h/h Stool for occult blood (4) Alcohol use, unspecified with unspecified alcohol-induced disorder: Code(s): F10.99 - Alcohol use, unspecified with unspecified alcohol-induced disorder Status: Acute Assessment and Plan: [facility] protocol PRN lorazepam (5) Thyroid nodule: Code(s): E04.1 - Nontoxic single thyroid nodule Status: Acute Assessment and Plan: Discovered on Chest CTA U/s pending (6) Fatty liver due to alcoholism: Code(s): K70.0 - Alcoholic fatty liver Status: Acute Assessment and Plan: 11/28/22 d/w pt and his spouse his excessive alcohol intake (7) Inguinal hernia bilateral, non-recurrent: Qualifiers: Obstruction and gangrene presence: without obstruction or gangrene Recurrence: not specified as recurrent Qualified Code(s): K40.20 - Bilateral inguinal hernia, without obstruction or gangrene, not specified as recurrent Code(s): K40.20 - Bilateral inguinal hernia, without obstruction or gangrene, not specified as recurrent Status: Acute Assessment and Plan: Asymptomatic (8) Nicotine dependence: Qualifiers: Nicotine product type: cigarettes Substance use status: uncomplicated Qualified Code(s): F17.210 - Nicotine dependence, cigarettes, uncomplicated Code(s): F17.200 - Nicotine dependence, unspecified, uncomplicated Status: Acute Assessment and Plan: 11/28/2022 he declined a nicotine patch (9) Chronic low back pain with bilateral sciatica: Qualifiers: Back pain laterality: bilateral Qualified Code(s): M54.42 - Lumbago with sciatica, left side; M54.41 - Lumbago with sciatica, right side; G89.29 - Other chronic pain Code(s): M54.41 - Lumbago with sciatica, right side; M54.42 - Lumbago with sciatica, left side; G89.29 - Other chronic pain Status: Acute Assessment and Plan: Severe pain, worse with standing, with bilateral leg pain CTA Abd/Pelvis showed bilateral L5 pars defect and 3 mm anterolisthesis L5 on S1 Suspect spinal stenosis Subjective Date/time seen: 11/28/22 12:21 Interval history: 62-year-old gentleman with chronic low back pain radiating to both posterior thighs worse on the right and left quit his job 1 year ago and has been very sedentary since then. He is not able to stand more than 5-10 minutes before having severe low back pain radiating to legs that forces him to rest. Denied weakness or numbness. Denied trauma. Worked construction doing mainly concrete work. Does smoke 2 packs of cigarettes per day and drinks 12 more beers per day. Denied use of other recreational substances
[2022-11-28 12:28] LABS: Free T4 Free Thyroxine Reflex 1.55 ng/dL (0.78-2.19)
[2022-11-28 13:23] LABS: Hematocrit 32.4 % (42.0-52.0); Hemoglobin 11.1 g/dL (14.0-18.0)
[2022-11-28 13:25] LABS: Total Triiodothyronine (T3) 1.19 NG/ML (0.97-1.69)
[2022-11-28 13:33] LABS: Sodium 121 mmol/L (137-145)
[2022-11-28 13:36] LABS: Iron 57 ug/dL (49-181)
[2022-11-28 13:39] LABS: INR 1.2; Prothrombin Time 15.4 Seconds (11.1-14.7)
[2022-11-28 13:46] LABS: Percent Iron Saturation 18 % (20-50)
[2022-11-28 14:00] VITALS: BP 110/72; PULSE 92; RESP 18; TEMP 36.6; O2SAT 97
[2022-11-28] MEDS: LORazepam INJ (*CRX) 2 MG/ML VIAL 1 MG IV PUSH (16:21)
[2022-11-28] MEDS: SODIUM CHLORIDE 0.9% IV 1,000 ML 150 ML IV CONT (17:10)
[2022-11-28 18:07] LABS: Hematocrit 31.8 % (42.0-52.0); Hemoglobin 10.9 g/dL (14.0-18.0)
[2022-11-28 18:21] LABS: Sodium 120 mmol/L (137-145)
[2022-11-28] MEDS: MELATONIN 5 MG TABLET PO ×2 (20:43)
[2022-11-28 22:00] VITALS: BP 124/82; PULSE 113; RESP 22; TEMP 36.4; O2SAT 97
[2022-11-29] MEDS: SODIUM CHLORIDE 0.9% IV 1,000 ML 150 ML IV CONT ×3 (01:54→16:58)
[2022-11-29] MEDS: MORPHINE SULFATE (*CRX) 4 MG/ML INJ IV PUSH ×6 (03:29→23:48)
[2022-11-29 06:00] VITALS: BP 146/94; PULSE 67; RESP 22; TEMP 36.6; O2SAT 96
[2022-11-29 07:48] LABS: Hematocrit 30.2 % (42.0-52.0); Hemoglobin 10.1 g/dL (14.0-18.0); Immature Platelet Fraction Pct 6.3 % (0.9-11.2); Mean Corpuscular HGB Conc 33.4 g/dl (32-36); Mean Corpuscular Hemoglobin 33.6 pg (26-34); Mean Corpuscular Volume 100.3 fl (80-100); Mean Platelet Volume 9.8 fl (7.4-10.4); Platelet Count Result 146 k/mm3 (150-375); Red Blood Count 3.01 M/mm3 (4.6-6.20); Red Cell Distribution Width 13.2 % (11.5-14.5); White Blood Count 9.9 K/mm3 (4.5-10.0)
[2022-11-29 10:46] LABS: Hematocrit 30.1 % (42.0-52.0)
[2022-11-29 11:01] LABS: Anion Gap 5 mmol/L (8-16); Blood Urea Nitrogen 18 mg/dL (9-20); Calcium 8.2 mg/dL (8.4-10.2); Carbon Dioxide 24 mmol/L (22-30); Chloride 94 mmol/L (98-107); Cholesterol 179 mg/dL (0-200); Estimated CRCL calculation 97 ml/min; Estimated Glomerular Filt Rate > 60; Glucose 118 mg/dL (65-110); HDL Direct 41 mg/dL; Potassium 5.1 mmol/L (3.4-5.0); Sodium 123 mmol/L (137-145); Triglycerides 115 mg/dL (<150)
[2022-11-29 11:15] LABS: LDL Cholesterol Direct 106 mg/dL
--- NOTE | 2022-11-29 12:35 | PC.NURSE ---
I spoke with Dr. Sapp regarding pt's pain meds. Pt has been receiving 4mg morphine IVP and is frequently asking for it within an hour of administration. When asked about the pain level, pt always states it is a 7.5 to an 8 out of 10. I explained all this Dr. Sapp and asked if there was something else that could be ordered as the morphine is clearly not working or holding. Dr. Sapp informed me that pt is complaining of chronic back pain so to give 650mg of acetaminophen q4 prn and to not give any more morphine. Orders were entered.
[2022-11-29 14:00] VITALS: BP 126/84; PULSE 88; RESP 18; TEMP 37.1; O2SAT 99
--- NOTE | 2022-11-29 14:19 | P.PNIM_ITS ---
Progress Note: A&P Assessment and Plan (1) Nontraumatic retroperitoneal hematoma: Code(s): K66.1 - Hemoperitoneum Status: Acute Assessment and Plan: * Etiology unclear * Abd/Pelvis CTA w/o obvious vascular abnormality on 11/27/2022 * Has only mild thrombocytopenia and no other abnormal bleeding or bruising * PT 15.4/INR 1.2, PTT 34 * Monitor h/h * F/u CT 11/30 * Ok for outpatient f/u if CT stable, H/h stable, and sodium adequately corrected (2) Deep venous thrombosis (DVT) of both peroneal veins: Qualifiers: Chronicity: chronic Qualified Code(s): I82.553 - Chronic embolism and thrombosis of peroneal vein, bilateral Code(s): I82.453 - Acute embolism and thrombosis of peroneal vein, bilateral Status: Acute Assessment and Plan: * Chronic since 2010 (11/28/2022 reviewed old chart notes and venous dopplers) * Inferior vena cava filter placed 2010 prior to tx for 6 months with warfarin * Sedentary lifestyle, morbid obesity, smoking are likely contributing factors * Thrombophilia due to occult neoplasm is a consideration * Genetic thrombophilia less likely w/o family hx * In the presence of an acute bleed and with IVC filter in place, NO anticoagulation now (3) Hyponatremia: Code(s): E87.1 - Hypo-osmolality and hyponatremia Status: Acute Assessment and Plan: * Arpita < 5, c/w prerenal * U/o improving with increased IVF * 11/29 increase IV saline to 175 ml/hr * F/u lab (4) Anemia due to acute blood loss: Code(s): D62 - Acute posthemorrhagic anemia Status: Acute Assessment and Plan: * Relatively stable since admission * 11/28/2022 Hgb 11.1, 11/29 10.1 in AM, 10.0 at noon * F/u h/h (expect some decline with hydration) * Stool for occult blood (5) Alcohol use, unspecified with unspecified alcohol-induced disorder: Code(s): F10.99 - Alcohol use, unspecified with unspecified alcohol-induced disorder Status: Acute Assessment and Plan: * [facility] protocol * PRN lorazepam * 11/29/2022 no s/sx alcohol w/d (6) Thyroid nodule: Code(s): E04.1 - Nontoxic single thyroid nodule Status: Acute Assessment and Plan: * Discovered on Chest CTA * U/s with benign cyst * TSH WNL (7) Fatty liver due to alcoholism: Code(s): K70.0 - Alcoholic fatty liver Status: Acute Assessment and Plan: * 11/28/22 d/w pt and his spouse his excessive alcohol intake (8) Chronic low back pain with bilateral sciatica: Qualifiers: Back pain laterality: bilateral Qualified Code(s): M54.42 - Lumbago with sciatica, left side; M54.41 - Lumbago with sciatica, right side; G89.29 - Other chronic pain Code(s): M54.41 - Lumbago with sciatica, right side; M54.42 - Lumbago with sciatica, left side; G89.29 - Other chronic pain Status: Acute Assessment and Plan: * Severe pain, worse with standing, with bilateral leg pain * CTA Abd/Pelvis showed bilateral L5 pars defect and 3 mm anterolisthesis L5 on S1 * Suspect spinal stenosis * Will need outpatient f/u (9) Inguinal hernia bilateral, non-recurrent: Qualifiers: Obstruction and gangrene presence: without obstruction or gangrene Recurrence: not specified as recurrent Qualified Code(s): K40.20 - Bilateral inguinal hernia, without obstruction or gangrene, not specified as recurrent Code(s): K40.20 - Bilateral inguinal hernia, without obstruction or gangrene, not specified as recurrent Status: Acute Assessment and Plan: * Asymptomatic (10) Nicotine dependence: Qu
--- NOTE | 2022-11-29 14:19 | PM.IMPN ---
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, bilateral Code(s): I82.453 - Acute embolism and thrombosis of peroneal vein, bilateral Status: Acute Assessment and Plan: Chronic since 2010 (11/28/2022 reviewed old chart notes and venous dopplers) Inferior vena cava filter placed 2010 prior to tx for 6 months with warfarin Sedentary lifestyle, morbid obesity, smoking are likely contributing factors Thrombophilia due to occult neoplasm is a consideration Genetic thrombophilia less likely w/o family hx In the presence of an acute bleed and with IVC filter in place, NO anticoagulation now (3) Hyponatremia: Code(s): E87.1 - Hypo-osmolality and hyponatremia Status: Acute Assessment and Plan: Arpita < 5, c/w prerenal U/o improving with increased IVF 11/29 increase IV saline to 175 ml/hr F/u lab (4) Anemia due to acute blood loss: Code(s): D62 - Acute posthemorrhagic anemia Status: Acute Assessment and Plan: Relatively stable since admission 11/28/2022 Hgb 11.1, 11/29 10.1 in AM, 10.0 at noon F/u h/h (expect some decline with hydration) Stool for occult blood (5) Alcohol use, unspecified with unspecified alcohol-induced disorder: Code(s): F10.99 - Alcohol use, unspecified with unspecified alcohol-induced disorder Status: Acute Assessment and Plan: [facility] protocol PRN lorazepam 11/29/2022 no s/sx alcohol w/d (6) Thyroid nodule: Code(s): E04.1 - Nontoxic single thyroid nodule Status: Acute Assessment and Plan: Discovered on Chest CTA U/s with benign cyst TSH WNL (7) Fatty liver due to alcoholism: Code(s): K70.0 - Alcoholic fatty liver Status: Acute Assessment and Plan: 11/28/22 d/w pt and his spouse his excessive alcohol intake (8) Chronic low back pain with bilateral sciatica: Qualifiers: Back pain laterality: bilateral Qualified Code(s): M54.42 - Lumbago with sciatica, left side; M54.41 - Lumbago with sciatica, right side; G89.29 - Other chronic pain Code(s): M54.41 - Lumbago with sciatica, right side; M54.42 - Lumbago with sciatica, left side; G89.29 - Other chronic pain Status: Acute Assessment and Plan: Severe pain, worse with standing, with bilateral leg pain CTA Abd/Pelvis showed bilateral L5 pars defect and 3 mm anterolisthesis L5 on S1 Suspect spinal stenosis Will need outpatient f/u (9) Inguinal hernia bilateral, non-recurrent: Qualifiers: Obstruction and gangrene presence: without obstruction or gangrene Recurrence: not specified as recurrent Qualified Code(s): K40.20 - Bilateral inguinal hernia, without obstruction or gangrene, not specified as recurrent Code(s): K40.20 - Bilateral inguinal hernia, without obstruction or gangrene, not specified as recurrent Status: Acute Assessment and Plan: Asymptomatic (10) Nicotine dependence: Qualifiers: Nicotine product type: cigarettes Substance use status: uncomplicated Qualified Code(s): F17.210 - Nicotine dependence, cigarettes, uncomplicated Code(s): F17.200 - Nicotine dependence, unspecified, uncomplicated Status: Acute Assessment and Plan: 11/28/2022 he declined a nicotine patch Subjective Date/time seen: 11/29/22 14:19 Interval history: 62-year-old gentleman
[2022-11-29 16:00] VITALS: PULSE 82
[2022-11-29 18:04] LABS: Hematocrit 30.1 % (42.0-52.0); Hemoglobin 10.1 g/dL (14.0-18.0)
[2022-11-29 18:16] LABS: Anion Gap 7 mmol/L (8-16); Blood Urea Nitrogen 17 mg/dL (9-20); Calcium 8.4 mg/dL (8.4-10.2); Carbon Dioxide 23 mmol/L (22-30); Chloride 92 mmol/L (98-107); Estimated CRCL calculation 109 ml/min; Estimated Glomerular Filt Rate > 60; Glucose 116 mg/dL (65-110); Potassium 5.3 mmol/L (3.4-5.0); Sodium 122 mmol/L (137-145)
--- NOTE | 2022-11-29 19:58 | PC.NURSE ---
Pt was transferred over to our care this afternoon after disagreement with original nurse. Pt had thigh high GARRICK hose placed on both legs. Pt denies any discomfort with them. Pt does not report any needs at this time. Pt reports pain that has been treated with morphine. Pt fluids were increased to 175 from 150. Pt denies having a good appetite and did not eat very much for lunch and dinner. Pt states that he does not want original nurse back tomorrow. IV was attempted due to placement of other IV. Attempt was unsuccessful. Pt tolerated well. Pt has been monitored for any changes in status.
[2022-11-29 20:00] VITALS: PULSE 98
[2022-11-29] MEDS: MELATONIN 5 MG TABLET PO (20:09)
[2022-11-29 21:00] VITALS: BP 118/71; PULSE 98; RESP 16; TEMP 36.6; O2SAT 99
[2022-11-30] MEDS: LORazepam INJ (*CRX) 2 MG/ML VIAL 1 MG IV PUSH (01:40)
[2022-11-30] MEDS: MORPHINE SULFATE (*CRX) 4 MG/ML INJ IV PUSH ×5 (04:00→23:57)
[2022-11-30 04:15] VITALS: BP 123/72; PULSE 88; RESP 18; TEMP 36.1; O2SAT 98
[2022-11-30 06:52] LABS: Hematocrit 28.8 % (42.0-52.0); Hemoglobin 9.6 g/dL (14.0-18.0); Mean Corpuscular HGB Conc 33.3 g/dl (32-36); Mean Corpuscular Hemoglobin 33.2 pg (26-34); Mean Corpuscular Volume 99.7 fl (80-100); Mean Platelet Volume 9.8 fl (7.4-10.4); Platelet Count Result 152 k/mm3 (150-375); Red Blood Count 2.89 M/mm3 (4.6-6.20); Red Cell Distribution Width 13.2 % (11.5-14.5); White Blood Count 10.1 K/mm3 (4.5-10.0)
[2022-11-30 07:02] LABS: Anion Gap 5 mmol/L (8-16); Blood Urea Nitrogen 14 mg/dL (9-20); Calcium 8.2 mg/dL (8.4-10.2); Carbon Dioxide 26 mmol/L (22-30); Chloride 92 mmol/L (98-107); Estimated CRCL calculation 126 ml/min; Estimated Glomerular Filt Rate > 60; Glucose 109 mg/dL (65-110); Sodium 123 mmol/L (137-145)
[2022-11-30] MEDS: THERAPEUTIC MULTIVITAMINS/MINERALS TAB (*BKC) 1 TABLET PO (08:29)
[2022-11-30] MEDS: THIAMINE HCL 100 MG TABLET PO (08:29)
[2022-11-30] MEDS: FOLIC ACID 1 MG TABLET PO (08:29)
[2022-11-30] MEDS: SODIUM CHLORIDE 3% 500 ML 60 ML IV CONT ×2 (10:01→18:35)
--- NOTE | 2022-11-30 11:30 | P.PNIM_ITS ---
Progress Note: A&P Assessment and Plan (1) Nontraumatic retroperitoneal hematoma: Code(s): K66.1 - Hemoperitoneum Status: Acute Assessment and Plan: * Etiology unclear * Abd/Pelvis CTA w/o obvious vascular abnormality on 11/27/2022 * Has only mild thrombocytopenia and no other abnormal bleeding or bruising * PT 15.4/INR 1.2, PTT 34 * Monitor h/h * F/u CT today * Ok for outpatient f/u if CT stable, H/h stable, and sodium adequately corrected (2) Deep venous thrombosis (DVT) of both peroneal veins: Qualifiers: Chronicity: chronic Qualified Code(s): I82.553 - Chronic embolism and thrombosis of peroneal vein, bilateral Code(s): I82.453 - Acute embolism and thrombosis of peroneal vein, bilateral Status: Acute Assessment and Plan: * Chronic since 2010 (11/28/2022 reviewed old chart notes and venous dopplers) * Inferior vena cava filter placed 2010 prior to tx for 6 months with warfarin * Sedentary lifestyle, morbid obesity, smoking are likely contributing factors * Thrombophilia due to occult neoplasm is a consideration * Genetic thrombophilia less likely w/o family hx * In the presence of an acute bleed and with IVC filter in place, NO anticoagula tion now (3) Hyponatremia: Code(s): E87.1 - Hypo-osmolality and hyponatremia Status: Acute Assessment and Plan: * Arpita < 5, c/w prerenal * Not much improvement in serum sodium. Will stop 0.9% NS and start on 3% NS * Monitor BMP q.6 hours (4) Anemia due to acute blood loss: Code(s): D62 - Acute posthemorrhagic anemia Status: Acute Assessment and Plan: * Relatively stable since admission (5) Alcohol use, unspecified with unspecified alcohol-induced disorder: Code(s): F10.99 - Alcohol use, unspecified with unspecified alcohol-induced disorder Status: Acute Assessment and Plan: * [facility] protocol * PRN lorazepam * no s/sx alcohol w/d (6) Thyroid nodule: Code(s): E04.1 - Nontoxic single thyroid nodule Status: Acute Assessment and Plan: * Discovered on Chest CTA * U/s with benign cyst * TSH WNL (7) Fatty liver due to alcoholism: Code(s): K70.0 - Alcoholic fatty liver Status: Acute (8) Chronic low back pain with bilateral sciatica: Qualifiers: Back pain laterality: bilateral Qualified Code(s): M54.42 - Lumbago with sciatica, left side; M54.41 - Lumbago with sciatica, right side; G89.29 - Other chronic pain Code(s): M54.41 - Lumbago with sciatica, right side; M54.42 - Lumbago with sciatica, left side; G89.29 - Other chronic pain Status: Acute Assessment and Plan: * Severe pain, worse with standing, with bilateral leg pain * CTA Abd/Pelvis showed bilateral L5 pars defect and 3 mm anterolisthesis L5 on S1 * Suspect spinal stenosis * Will need outpatient f/u (9) Inguinal hernia bilateral, non-recurrent: Qualifiers: Obstruction and gangrene presence: without obstruction or gangrene Recurrence: not specified as recurrent Qualified Code(s): K40.20 - Bilateral inguinal hernia, without obstruction or gangrene, not specified as recurrent Code(s): K40.20 - Bilateral inguinal hernia, without obstruction or gangrene, not specified as recurrent Status: Acute Assessment and Plan: * Asymptomatic (10) Nicotine dependence: Qualifiers: Nicotine product type: cigarettes Substance use status: uncomplicated Qualified Code(s): F17.210 - Nicotine dependence, cigarettes, uncomplicated Code(s): F17.200 - Nicotine dependenc
--- NOTE | 2022-11-30 11:30 | PM.IMPN ---
Progress Note: A&P Assessment and Plan (1) Nontraumatic retroperitoneal hematoma: Code(s): K66.1 - Hemoperitoneum Status: Acute Assessment and Plan: Etiology unclear Abd/Pelvis CTA w/o obvious vascular abnormality on 11/27/2022 Has only mild thrombocytopenia and no other abnormal bleeding or bruising PT 15.4/INR 1.2, PTT 34 Monitor h/h F/u CT today Ok for outpatient f/u if CT stable, H/h stable, and sodium adequately corrected (2) Deep venous thrombosis (DVT) of both peroneal veins: Qualifiers: Chronicity: chronic Qualified Code(s): I82.553 - Chronic embolism and thrombosis of peroneal vein, bilateral Code(s): I82.453 - Acute embolism and thrombosis of peroneal vein, bilateral Status: Acute Assessment and Plan: Chronic since 2010 (11/28/2022 reviewed old chart notes and venous dopplers) Inferior vena cava filter placed 2010 prior to tx for 6 months with warfarin Sedentary lifestyle, morbid obesity, smoking are likely contributing factors Thrombophilia due to occult neoplasm is a consideration Genetic thrombophilia less likely w/o family hx In the presence of an acute bleed and with IVC filter in place, NO anticoagulation now (3) Hyponatremia: Code(s): E87.1 - Hypo-osmolality and hyponatremia Status: Acute Assessment and Plan: Arpita < 5, c/w prerenal Not much improvement in serum sodium. Will stop 0.9% NS and start on 3% NS Monitor BMP q.6 hours (4) Anemia due to acute blood loss: Code(s): D62 - Acute posthemorrhagic anemia Status: Acute Assessment and Plan: Relatively stable since admission (5) Alcohol use, unspecified with unspecified alcohol-induced disorder: Code(s): F10.99 - Alcohol use, unspecified with unspecified alcohol-induced disorder Status: Acute Assessment and Plan: [facility] protocol PRN lorazepam no s/sx alcohol w/d (6) Thyroid nodule: Code(s): E04.1 - Nontoxic single thyroid nodule Status: Acute Assessment and Plan: Discovered on Chest CTA U/s with benign cyst TSH WNL (7) Fatty liver due to alcoholism: Code(s): K70.0 - Alcoholic fatty liver Status: Acute (8) Chronic low back pain with bilateral sciatica: Qualifiers: Back pain laterality: bilateral Qualified Code(s): M54.42 - Lumbago with sciatica, left side; M54.41 - Lumbago with sciatica, right side; G89.29 - Other chronic pain Code(s): M54.41 - Lumbago with sciatica, right side; M54.42 - Lumbago with sciatica, left side; G89.29 - Other chronic pain Status: Acute Assessment and Plan: Severe pain, worse with standing, with bilateral leg pain CTA Abd/Pelvis showed bilateral L5 pars defect and 3 mm anterolisthesis L5 on S1 Suspect spinal stenosis Will need outpatient f/u (9) Inguinal hernia bilateral, non-recurrent: Qualifiers: Obstruction and gangrene presence: without obstruction or gangrene Recurrence: not specified as recurrent Qualified Code(s): K40.20 - Bilateral inguinal hernia, without obstruction or gangrene, not specified as recurrent Code(s): K40.20 - Bilateral inguinal hernia, without obstruction or gangrene, not specified as recurrent Status: Acute Assessment and Plan: Asymptomatic (10) Nicotine dependence: Qualifiers: Nicotine product type: cigarettes Substance use status: uncomplicated Qualified Code(s): F17.210 - Nicotine dependence, cigarettes, uncomplicated Code(s): F17.200 - Nicotine dependence, unspecified, uncomplicated Status: Acute Assessment and Plan: 11/28/2022 he declined a nicotine patch Subjective Date/time seen: 11/30/22 11:30 Interval history: Patient reports pain in both flanks Review of Systems Review of Systems: All systems reviewed & are unremarkable except as noted in HPI and below Exam Narrative: GENERAL: Morbidly obese gentleman lying in his
[2022-11-30 12:00] VITALS: PULSE 105
[2022-11-30] MEDS: traMADol HCL (*CRX) 25 MG TABLET PO (13:43)
[2022-11-30 14:00] VITALS: BP 127/84; PULSE 107; RESP 16; TEMP 36.6; O2SAT 100
--- NOTE | 2022-11-30 14:35 | PCOTNOTE ---
spoke with hospitalist, Dr. Jimenez, who confirmed pt. can mobilize out of bed to chair at this time, approving work with therapy services.
[2022-11-30 16:00] VITALS: PULSE 108
[2022-11-30 17:07] LABS: Anion Gap 8 mmol/L (8-16); Blood Urea Nitrogen 14 mg/dL (9-20); Calcium 8.4 mg/dL (8.4-10.2); Carbon Dioxide 21 mmol/L (22-30); Chloride 93 mmol/L (98-107); Estimated CRCL calculation 109 ml/min; Estimated Glomerular Filt Rate > 60; Glucose 116 mg/dL (65-110); Potassium 5.3 mmol/L (3.4-5.0); Sodium 122 mmol/L (137-145)
[2022-11-30] MEDS: traMADol HCL (*CRX) 50 MG TABLET PO (17:21)
--- NOTE | 2022-11-30 17:42 | PC.NURSE ---
This nurse was told by Dr. Jimenez to call him with sodium results from BMP at 4pm. This nurse called Dr. Jimenez at 1730 about sodium level of 22. Pt was started on 3% sodium chloride at 1000 because of sodium level of 123. Dr. Jimenez told this nurse to continue 3% sodium chloride at this time.
[2022-11-30] MEDS: MELATONIN 5 MG TABLET PO (19:53)
[2022-11-30 20:00] VITALS: BP 127/84; PULSE 96; PULSE 98
[2022-11-30 20:50] VITALS: BP 128/89; PULSE 98; RESP 18; TEMP 36.1; O2SAT 100
[2022-11-30 23:49] LABS: Anion Gap 4 mmol/L (8-16); Blood Urea Nitrogen 12 mg/dL (9-20); Calcium 8.2 mg/dL (8.4-10.2); Carbon Dioxide 26 mmol/L (22-30); Chloride 95 mmol/L (98-107); Estimated CRCL calculation 109 ml/min; Estimated Glomerular Filt Rate > 60; Glucose 105 mg/dL (65-110); Potassium 5.1 mmol/L (3.4-5.0); Sodium 125 mmol/L (137-145)
[2022-12-01] VITALS (9 sets, daily range): BP systolic 111–134; BP diastolic 84–87; PULSE 82–97; RESP 16–20; TEMP 36.1–36.5; O2SAT 97–100
[2022-12-01] MEDS: MORPHINE SULFATE (*CRX) 4 MG/ML INJ IV PUSH ×5 (03:46→20:37)
[2022-12-01] MEDS: SODIUM CHLORIDE 3% 100 ML 50 ML IV CONT (03:57)
[2022-12-01 06:34] LABS: Hematocrit 28.2 % (42.0-52.0); Hemoglobin 9.4 g/dL (14.0-18.0); Mean Corpuscular HGB Conc 33.3 g/dl (32-36); Mean Corpuscular Hemoglobin 32.8 pg (26-34); Mean Corpuscular Volume 98.3 fl (80-100); Mean Platelet Volume 9.3 fl (7.4-10.4); Platelet Count Result 172 k/mm3 (150-375); Red Blood Count 2.87 M/mm3 (4.6-6.20); Red Cell Distribution Width 13.2 % (11.5-14.5); White Blood Count 10.6 K/mm3 (4.5-10.0)
[2022-12-01 06:44] LABS: Anion Gap 2 mmol/L (8-16); Blood Urea Nitrogen 12 mg/dL (9-20); Calcium 8.2 mg/dL (8.4-10.2); Carbon Dioxide 26 mmol/L (22-30); Chloride 98 mmol/L (98-107); Estimated CRCL calculation 126 ml/min; Estimated Glomerular Filt Rate > 60; Glucose 109 mg/dL (65-110); Potassium 4.8 mmol/L (3.4-5.0); Sodium 126 mmol/L (137-145)
[2022-12-01] MEDS: SODIUM CHLORIDE 3% 500 ML 100 ML IV CONT (08:26)
[2022-12-01] MEDS: FOLIC ACID 1 MG TABLET PO (08:27)
[2022-12-01] MEDS: THERAPEUTIC MULTIVITAMINS/MINERALS TAB (*BKC) 1 TABLET PO (08:27)
[2022-12-01] MEDS: THIAMINE HCL 100 MG TABLET PO (08:27)
--- NOTE | 2022-12-01 10:22 | P.PNIM_ITS ---
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, bilateral Code(s): I82.453 - Acute embolism and thrombosis of peroneal vein, bilateral Status: Acute Assessment and Plan: * Chronic since 2010 (11/28/2022 reviewed old chart notes and venous dopplers) * Inferior vena cava filter placed 2010 prior to tx for 6 months with warfarin * Sedentary lifestyle, morbid obesity, smoking are likely contributing factors * Thrombophilia due to occult neoplasm is a consideration * In the presence of an acute bleed and with IVC filter in place, NO anticoagulation now (3) Hyponatremia: Code(s): E87.1 - Hypo-osmolality and hyponatremia Status: Acute Assessment and Plan: * Arpita < 5, c/w prerenal * on 3% NS * Monitor BMP q.6 hours * Consult nephrology (4) Anemia due to acute blood loss: Code(s): D62 - Acute posthemorrhagic anemia Status: Acute Assessment and Plan: * Relatively stable since admission (5) Alcohol use, unspecified with unspecified alcohol-induced disorder: Code(s): F10.99 - Alcohol use, unspecified with unspecified alcohol-induced disorder Status: Acute Assessment and Plan: * CIWA protocol * PRN lorazepam * no s/sx alcohol w/d (6) Thyroid nodule: Code(s): E04.1 - Nontoxic single thyroid nodule Status: Acute Assessment and Plan: * Discovered on Chest CTA * U/s with benign cyst * TSH WNL (7) Fatty liver due to alcoholism: Code(s): K70.0 - Alcoholic fatty liver Status: Acute (8) Chronic low back pain with bilateral sciatica: Qualifiers: Back pain laterality: bilateral Qualified Code(s): M54.42 - Lumbago with sciatica, left side; M54.41 - Lumbago with sciatica, right side; G89.29 - Other chronic pain Code(s): M54.41 - Lumbago with sciatica, right side; M54.42 - Lumbago with sciatica, left side; G89.29 - Other chronic pain Status: Acute Assessment and Plan: * Severe pain, worse with standing, with bilateral leg pain * CTA Abd/Pelvis showed bilateral L5 pars defect and 3 mm anterolisthesis L5 on S1 * Suspect spinal stenosis * Will need outpatient f/u (9) Inguinal hernia bilateral, non-recurrent: Qualifiers: Obstruction and gangrene presence: without obstruction or gangrene Recurrence: not specified as recurrent Qualified Code(s): K40.20 - Bilateral inguinal hernia, without obstruction or gangrene, not specified as recurrent Code(s): K40.20 - Bilateral inguinal hernia, without obstruction or gangrene, not specified as recurrent Status: Acute Assessment and Plan: * Asymptomatic Subjective Date/time seen: 12/01/22 10:22 Interval history: asymptomatic Review of Systems Review of Systems: All systems reviewed & are unremarkable except as noted in HPI and below Exam Narrative: GENERAL: Morbidly obese gentleman HEENT: PERRL, sclerae nonicteric, pharyngeal mucosa pink and intact NECK: No JV
--- NOTE | 2022-12-01 10:22 | PM.IMPN ---
Progress Note: A&P Assessment and Plan (1) Nontraumatic retroperitoneal hematoma: Code(s): K66.1 - Hemoperitoneum Status: Acute Assessment and Plan: Etiology unclear Abd/Pelvis CTA w/o obvious vascular abnormality on 11/27/2022 Has only mild thrombocytopenia and no other abnormal bleeding or bruising PT 15.4/INR 1.2, PTT 34 Monitor h/h F/u CT shows persistent hematoma (2) Deep venous thrombosis (DVT) of both peroneal veins: Qualifiers: Chronicity: chronic Qualified Code(s): I82.553 - Chronic embolism and thrombosis of peroneal vein, bilateral Code(s): I82.453 - Acute embolism and thrombosis of peroneal vein, bilateral Status: Acute Assessment and Plan: Chronic since 2010 (11/28/2022 reviewed old chart notes and venous dopplers) Inferior vena cava filter placed 2010 prior to tx for 6 months with warfarin Sedentary lifestyle, morbid obesity, smoking are likely contributing factors Thrombophilia due to occult neoplasm is a consideration In the presence of an acute bleed and with IVC filter in place, NO anticoagulation now (3) Hyponatremia: Code(s): E87.1 - Hypo-osmolality and hyponatremia Status: Acute Assessment and Plan: Arpita < 5, c/w prerenal on 3% NS Monitor BMP q.6 hours Consult nephrology (4) Anemia due to acute blood loss: Code(s): D62 - Acute posthemorrhagic anemia Status: Acute Assessment and Plan: Relatively stable since admission (5) Alcohol use, unspecified with unspecified alcohol-induced disorder: Code(s): F10.99 - Alcohol use, unspecified with unspecified alcohol-induced disorder Status: Acute Assessment and Plan: [place] protocol PRN lorazepam no s/sx alcohol w/d (6) Thyroid nodule: Code(s): E04.1 - Nontoxic single thyroid nodule Status: Acute Assessment and Plan: Discovered on Chest CTA U/s with benign cyst TSH WNL (7) Fatty liver due to alcoholism: Code(s): K70.0 - Alcoholic fatty liver Status: Acute (8) Chronic low back pain with bilateral sciatica: Qualifiers: Back pain laterality: bilateral Qualified Code(s): M54.42 - Lumbago with sciatica, left side; M54.41 - Lumbago with sciatica, right side; G89.29 - Other chronic pain Code(s): M54.41 - Lumbago with sciatica, right side; M54.42 - Lumbago with sciatica, left side; G89.29 - Other chronic pain Status: Acute Assessment and Plan: Severe pain, worse with standing, with bilateral leg pain CTA Abd/Pelvis showed bilateral L5 pars defect and 3 mm anterolisthesis L5 on S1 Suspect spinal stenosis Will need outpatient f/u (9) Inguinal hernia bilateral, non-recurrent: Qualifiers: Obstruction and gangrene presence: without obstruction or gangrene Recurrence: not specified as recurrent Qualified Code(s): K40.20 - Bilateral inguinal hernia, without obstruction or gangrene, not specified as recurrent Code(s): K40.20 - Bilateral inguinal hernia, without obstruction or gangrene, not specified as recurrent Status: Acute Assessment and Plan: Asymptomatic Subjective Date/time seen: 12/01/22 10:22 Interval history: asymptomatic Review of Systems Review of Systems: All systems reviewed & are unremarkable except as noted in HPI and below Exam Narrative: GENERAL: Morbidly obese gentleman HEENT: PERRL, sclerae nonicteric, pharyngeal mucosa pink and intact NECK: No JVD, adenopathy, or thyromegaly CHEST: Clear to auscultation. Normal effort. HEART: NL S1/S2, regular, no murmur ABDOMEN: BS+, soft, but protuberant, tender right flank lower quadrant, no palpable mass, EXTREMITIES: Lower extremity with chronic venous stasis changes and nonpitting edema that is about 2+. NEUROLOGIC: CN intact and symmetric to inspection. Tone and strength symmetric all 4 extremities. MUSCULOSKELETAL: No gross deformity to visual inspection. PSYCH: Al
--- NOTE | 2022-12-01 13:33 | PCPTNOTE ---
Patient refused treatment this session due to lower abdominal pain at 01/24. RN aware. Patient reported therapy can check back after pain medication.
[2022-12-01 13:53] LABS: Sodium 128 mmol/L (137-145)
[2022-12-01 14:23] LABS: Creatinine Urine 166.7 mg/dL; Total Protein Urine Random 6 mg/dL; Ur Ttl Prot Creatinine Ratio 0.04 mg/mg (0-0.20)
[2022-12-01 14:57] LABS: Appearance Urine Clear (Clear); Bacteria Urine None Seen /hpf; Bilirubin Urine 1+ (Negative); Blood Urine Negative (Negative); Color Urine Dark Yellow (Yellow); Glucose Urine UA 1+ mg/dL (Negative); Ketones Urine Negative (Negative); Leukocyte Esterase Ur Trace LEU/UL (NEGATIVE); Need Manual Microscopic Reviewed; Nitrate Urine Positive (Negative); Non Pathogenic Casts 0-2; Protein Urine Trace mg/dL (Negative); RBC Urine 0-2 /hpf (0-2); Specific Grav Ur 1.024 (1.001-1.035); Squamous Epithelial Cell Urine None seen /hpf (Few); WBC Urine 0-5 /hpf (0-3); pH Urine 5.5 (5.0-9.0)
[2022-12-01 15:00] LABS: Add Urine Microscopic? YES
[2022-12-01 15:15] LABS: Sodium Urine Random < 5 meq/L
[2022-12-01 15:26] LABS: Urea Random Urine 1113 MG/DL
--- NOTE | 2022-12-01 15:30 | PM.CNNEP ---
Assessment and Plan Assessment and plan (1) Hyponatremia: Code(s): E87.1 - Hypo-osmolality and hyponatremia Status: Acute Assessment and Plan: The patient has hyponatremia. The sodium was low back in 2019 on a 1 time blood draw but back in 2017 and before that it was not low. So he has an element of chronic hyponatremia. In 2020 he was not on any medications that would do this. He was in the emergency room for pain at the time. Now the patient has worse hyponatremia. His urine output has been relatively low and he is drinking a lot of fluid so I suspect that this might be free water overload. The patient continues to drink lots of fluid in the hospital. He has been getting 3% saline which has not been working mostly because he is just out drinking the 3%. His urine sodium was low on admission so he probably was dehydrated as well. Now he has received isotonic saline for a while and 3% saline since then and probably does not have much pre renal azotemia now. Things the lower the sodium include Severe pain which he does have. Narcotics and he is on these. Excess water intake. Dehydration which was present on admission. Hormones but TSH and cortisol are okay. Cancer but he has no history of active cancer. CIGARETTE TESTER issues but he has no signs or symptoms of a space occupying lesion in the brain Pulmonary issues and he has no signs or symptoms or CT evidence of a space-occupying lesion in the lungs. At this point he needs fluid restriction. We can follow the sodium closely. It is high enough that we do not need to give any more hypertonic saline. In 2020 is sodium was 132 so he may be close to his former baseline anyway. He will be getting another BMP shortly. (2) Nontraumatic retroperitoneal hematoma: Code(s): K66.1 - Hemoperitoneum Status: Acute Assessment and Plan: Patient has a retroperitoneal hematoma. It is unclear what caused this. 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 Sapp said. (5) Anemia due to acute blood loss: Code(s): D62 - Acute posthemorrhagic anemia Status: Acute Assessment and Plan: Hemoglobin is 9.4. TSAT is low. Will check a ferritin. Consider iron supplementation. History of Present Illness Reason for Consult Consult date: 12/01/22 Chief Complaint Chief complaint: Right Side Retroperitoneal Hematoma/Intractable Pa History of Present Illness Narrative: Dre is a very pleasant 62-year-old gentleman who has multiple medical problems including peripheral arterial disease, pulmonary embolus, and high body mass index. He says his problem started last when he started having back pain. This is mostly lower back pain below his belt. It was worse with standing sitting or any movement. He also had some numbness in the right foot. He also says that he has been urinating very little. Just small amounts at a time. This had been going on for a couple days before admission as well. He still urinates but just have small amount each time. He was evaluated in the emergency room. He had a CTA of the chest which ruled out pulmonary emboli. They found a left thyroid nodule and mild aortic atherosclerosis. Further evaluation of the same CT showed a right retroperitoneal hematoma. Venous Doppler showed extensive bilateral deep vein thromboses. He was admitted. Retroperitoneal bleed
[2022-12-01] MEDS: TAMSULOSIN HCL 0.4 MG CAPSULE PO (20:38)
[2022-12-01] MEDS: MELATONIN 5 MG TABLET PO (20:38)
[2022-12-01 21:16] LABS: Anion Gap 5 mmol/L (8-16); Blood Urea Nitrogen 13 mg/dL (9-20); Calcium 8.4 mg/dL (8.4-10.2); Carbon Dioxide 26 mmol/L (22-30); Chloride 98 mmol/L (98-107); Estimated CRCL calculation 109 ml/min; Estimated Glomerular Filt Rate > 60; Glucose 106 mg/dL (65-110); Potassium 4.6 mmol/L (3.4-5.0); Sodium 129 mmol/L (137-145)
[2022-12-02] VITALS: PULSE 96
[2022-12-02] MEDS: MORPHINE SULFATE (*CRX) 4 MG/ML INJ IV PUSH ×3 (01:15→10:18)
[2022-12-02 04:00] VITALS: BP 111/84; PULSE 88; PULSE 96
[2022-12-02 05:18] VITALS: BP 127/93; PULSE 96; RESP 16; TEMP 36.1; O2SAT 100
[2022-12-02 06:53] LABS: Hematocrit 28.2 % (42.0-52.0); Hemoglobin 9.3 g/dL (14.0-18.0); Mean Corpuscular Hemoglobin 32.4 pg (26-34); Mean Corpuscular Volume 98.3 fl (80-100); Mean Platelet Volume 9.3 fl (7.4-10.4); Platelet Count Result 212 k/mm3 (150-375); Red Blood Count 2.87 M/mm3 (4.6-6.20); Red Cell Distribution Width 13.2 % (11.5-14.5); White Blood Count 9.8 K/mm3 (4.5-10.0)
[2022-12-02 07:08] LABS: Albumin Level 3.2 g/dL (3.5-5.1); Anion Gap 5 mmol/L (8-16); Blood Urea Nitrogen 13 mg/dL (9-20); Calcium 8.5 mg/dL (8.4-10.2); Carbon Dioxide 24 mmol/L (22-30); Chloride 97 mmol/L (98-107); Estimated CRCL calculation 126 ml/min; Estimated Glomerular Filt Rate > 60; Glucose 114 mg/dL (65-110); Phosphorus 3.8 mg/dL (2.5-4.5); Potassium 4.6 mmol/L (3.4-5.0); Sodium 126 mmol/L (137-145)
[2022-12-02 08:00] VITALS: PULSE 89
[2022-12-02] MEDS: FOLIC ACID 1 MG TABLET PO (09:53)
[2022-12-02] MEDS: THIAMINE HCL 100 MG TABLET PO (09:53)
[2022-12-02] MEDS: THERAPEUTIC MULTIVITAMINS/MINERALS TAB (*BKC) 1 TABLET PO (09:53)
--- NOTE | 2022-12-02 10:00 | PCOTNOTE ---
Patient refused to participate in services at this time due to having severe pain with movement. Patient verbalized he had just gotten pain medication and comfortable. Will check back at a later time.
--- NOTE | 2022-12-02 10:22 | P.PNIM_ITS ---
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, bilateral Code(s): I82.453 - Acute embolism and thrombosis of peroneal vein, bilateral Status: Acute Assessment and Plan: * Chronic since 2010 (11/28/2022 reviewed old chart notes and venous dopplers) * Inferior vena cava filter placed 2010 prior to tx for 6 months with warfarin * Sedentary lifestyle, morbid obesity, smoking are likely contributing factors * Thrombophilia due to occult neoplasm is a consideration * In the presence of an acute bleed and with IVC filter in place, NO anticoagulation now (3) Hyponatremia: Code(s): E87.1 - Hypo-osmolality and hyponatremia Status: Acute Assessment and Plan: * Arpita < 5, c/w prerenal * Appreciate nephrology input. We started patient on 3% NS but it appears patient has high water intake causing dilutional hyponatremia. 3% NS discontinued by Nephrology. Patient placed on fluid restriction. * Monitor BMP q.6 hours (4) Anemia due to acute blood loss: Code(s): D62 - Acute posthemorrhagic anemia Status: Acute Assessment and Plan: * Relatively stable since admission (5) Alcohol use, unspecified with unspecified alcohol-induced disorder: Code(s): F10.99 - Alcohol use, unspecified with unspecified alcohol-induced disorder Status: Acute Assessment and Plan: * DC cIWA protocol (6) Thyroid nodule: Code(s): E04.1 - Nontoxic single thyroid nodule Status: Acute Assessment and Plan: * Discovered on Chest CTA * U/s with benign cyst * TSH WNL (7) Fatty liver due to alcoholism: Code(s): K70.0 - Alcoholic fatty liver Status: Acute (8) Chronic low back pain with bilateral sciatica: Qualifiers: Back pain laterality: bilateral Qualified Code(s): M54.42 - Lumbago with sciatica, left side; M54.41 - Lumbago with sciatica, right side; G89.29 - Other chronic pain Code(s): M54.41 - Lumbago with sciatica, right side; M54.42 - Lumbago with sciatica, left side; G89.29 - Other chronic pain Status: Acute Assessment and Plan: * Severe pain, worse with standing, with bilateral leg pain * CTA Abd/Pelvis showed bilateral L5 pars defect and 3 mm anterolisthesis L5 on S1 * Suspect spinal stenosis * Will need outpatient f/u (9) Inguinal hernia bilateral, non-recurrent: Qualifiers: Obstruction and gangrene presence: without obstruction or gangrene Recurrence: not specified as recurrent Qualified Code(s): K40.20 - Bilateral inguinal hernia, without obstruction or gangrene, not specified as recurrent Code(s): K40.20 - Bilateral inguinal hernia, without obstruction or gangrene, not specified as recurrent Status: Acute Assessment and Plan: * Asymptomatic Subjective Date/time seen: 12/02/22 10:22 Interval history: No overnight issues Review of Systems Constitutional: Constitutional: Reports no additional constitutional complaints Eyes: Eyes: Reports no additional eye complaints ENT: Reports system reviewed and no additional complaints, except as documen
--- NOTE | 2022-12-02 10:22 | PM.IMPN ---
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, bilateral Code(s): I82.453 - Acute embolism and thrombosis of peroneal vein, bilateral Status: Acute Assessment and Plan: Chronic since 2010 (11/28/2022 reviewed old chart notes and venous dopplers) Inferior vena cava filter placed 2010 prior to tx for 6 months with warfarin Sedentary lifestyle, morbid obesity, smoking are likely contributing factors Thrombophilia due to occult neoplasm is a consideration In the presence of an acute bleed and with IVC filter in place, NO anticoagulation now (3) Hyponatremia: Code(s): E87.1 - Hypo-osmolality and hyponatremia Status: Acute Assessment and Plan: Arpita < 5, c/w prerenal Appreciate nephrology input. We started patient on 3% NS but it appears patient has high water intake causing dilutional hyponatremia. 3% NS discontinued by Nephrology. Patient placed on fluid restriction. Monitor BMP q.6 hours (4) Anemia due to acute blood loss: Code(s): D62 - Acute posthemorrhagic anemia Status: Acute Assessment and Plan: Relatively stable since admission (5) Alcohol use, unspecified with unspecified alcohol-induced disorder: Code(s): F10.99 - Alcohol use, unspecified with unspecified alcohol-induced disorder Status: Acute Assessment and Plan: DC [facility] protocol (6) Thyroid nodule: Code(s): E04.1 - Nontoxic single thyroid nodule Status: Acute Assessment and Plan: Discovered on Chest CTA U/s with benign cyst TSH WNL (7) Fatty liver due to alcoholism: Code(s): K70.0 - Alcoholic fatty liver Status: Acute (8) Chronic low back pain with bilateral sciatica: Qualifiers: Back pain laterality: bilateral Qualified Code(s): M54.42 - Lumbago with sciatica, left side; M54.41 - Lumbago with sciatica, right side; G89.29 - Other chronic pain Code(s): M54.41 - Lumbago with sciatica, right side; M54.42 - Lumbago with sciatica, left side; G89.29 - Other chronic pain Status: Acute Assessment and Plan: Severe pain, worse with standing, with bilateral leg pain CTA Abd/Pelvis showed bilateral L5 pars defect and 3 mm anterolisthesis L5 on S1 Suspect spinal stenosis Will need outpatient f/u (9) Inguinal hernia bilateral, non-recurrent: Qualifiers: Obstruction and gangrene presence: without obstruction or gangrene Recurrence: not specified as recurrent Qualified Code(s): K40.20 - Bilateral inguinal hernia, without obstruction or gangrene, not specified as recurrent Code(s): K40.20 - Bilateral inguinal hernia, without obstruction or gangrene, not specified as recurrent Status: Acute Assessment and Plan: Asymptomatic Subjective Date/time seen: 12/02/22 10:22 Interval history: No overnight issues Review of Systems Constitutional: Constitutional: Reports no additional constitutional complaints Eyes: Eyes: Reports no additional eye complaints ENT: Reports system reviewed and no additional complaints, except as documented Cardiovascular: Cardiovascular: Reports no additional cardiovascular complaints Respiratory: Respiratory: Reports no additional respiratory complaints Gastrointestinal: Gastrointestinal: Reports no additional gastrointestinal complaints Genitourinary: Genitourinary: Reports no additional male genitourinary complaints Musculoskeletal: Musculoskeletal: Reports no additional musculoskeletal complaints Integumentary/Breasts: Skin/Margaux
[2022-12-02 14:25] VITALS: BP 120/70; PULSE 97; RESP 20; TEMP 36.3; O2SAT 98
--- NOTE | 2022-12-02 15:15 | PCOTNOTE ---
Attempted again this afternoon. Patient refused stating, I'm in to much pain, not interested . Patient was educated on the importance of functional movement to improve his abilities.
--- NOTE | 2022-12-02 15:21 | PM.PNNEP ---
Progress Note: A&P Assessment and Plan (1) Hyponatremia: Code(s): E87.1 - Hypo-osmolality and hyponatremia Status: Acute Assessment and Plan: The patient has hyponatremia. The sodium was low back in 2019 on a 1 time blood draw but back in 2017 and before that it was not low. So he has an element of chronic hyponatremia. he also has more recent worsened hyponatremia. Serum and urine osmolality pending. SPEP pending urine sodium is low. He has been getting some IV fluids. TSH and cortisol are okay. He is on narcotics. Other things that cause hyponatremia include Cancer but he has no history of active cancer. HEAD PASTRY CHEF issues but he has no signs or symptoms of a space occupying lesion in the brain Pulmonary issues and he has no signs or symptoms or CT evidence of a space-occupying lesion in the lungs. In 2019 he was not on any medications that would do this. He was in the emergency room for pain at the time. At this point the best thing to do would be stick to fluid restriction. His sodium level was about the same yesterday evening. It did drop a little bit this morning. Will check another 1 at This afternoon (2) Nontraumatic retroperitoneal hematoma: Code(s): K66.1 - Hemoperitoneum Status: Acute Assessment and Plan: Patient has a retroperitoneal hematoma. It is unclear what caused this. 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 Sapp said. (5) Anemia due to acute blood loss: Code(s): D62 - Acute posthemorrhagic anemia Status: Acute Assessment and Plan: Hemoglobin is 9.4. TSAT is low. ferritin is high. Consistent with anemia of chronic disease. Subjective Date/time seen: 12/02/22 15:21 Interval history: patient is still in a lot of pain. He is very swollen and his legs feel tight and his scrotum is very large. We discussed the issues. Unfortunately we cannot do anything about the retroperitoneal bleed which causes so much discomfort. It just has to resolve and hopefully the pain will improve. The patient has significant clot burden but we can't give anticoagulants due to the retroperitoneal bleed. He is fluid restricting now. Review of Systems Cardiovascular: Cardiovascular: Reports no additional cardiovascular complaints Respiratory: Respiratory: Reports no additional respiratory complaints Gastrointestinal: Gastrointestinal: Reports no additional gastrointestinal complaints Genitourinary: Genitourinary: Reports no additional male genitourinary complaints Exam Narrative: WDWN in NAD skin no rash or subcu nodules head ncat lungs clear cor reg no rub abd BS+ nontender and soft ext Two to3+ bilateral edema. Objective Data Vital Signs Vital Signs: Vital Signs - 24 hr 12/01/22 16:00 12/01/22 20:30 12/01/22 20:00 Temperature 97.0 F L Pulse Rate 92 91 93 Pulse Rate [Pedal (Dorsalis Pedis)] Respiratory Rate 20 Blood Pressure 111/84 Pulse Oximetry 100 Oxygen Delivery 12/01/22 20:00 12/01/22 20:00 12/02/22 00:00 Temperature Pulse Rate 96 Pulse Rate [Pedal (Dorsalis Pedis)] 96 Respiratory Rate Blood Pressure 111/84 Pulse Oximetry Oxygen Delivery Room Air 12/02/22 04:00 12/02/22 04:00 12/02/22 05:18 Temperature 97 F L Pulse Rate 88 96 Pulse Rate [Pedal (Dorsalis Pedis)] 96 Respiratory
[2022-12-02] MEDS: HYDROcodone/acetaminophen (*CRX) 10-325 MG TABLET 1 TAB PO ×2 (16:14→22:17)
[2022-12-02 16:32] LABS: Anion Gap 4 mmol/L (8-16); Blood Urea Nitrogen 15 mg/dL (9-20); Calcium 8.5 mg/dL (8.4-10.2); Carbon Dioxide 28 mmol/L (22-30); Chloride 96 mmol/L (98-107); Estimated CRCL calculation 126 ml/min; Estimated Glomerular Filt Rate > 60; Glucose 132 mg/dL (65-110); Potassium 4.5 mmol/L (3.4-5.0); Sodium 128 mmol/L (137-145)
[2022-12-02] MEDS: FUROSEMIDE INJ 100 MG/10 ML VIAL 80 MG IV PUSH (18:01)
[2022-12-02] MEDS: BISACODYL 5 MG TABLET EC PO (18:02)
[2022-12-02] MEDS: TAMSULOSIN HCL 0.4 MG CAPSULE PO (21:02)
[2022-12-02] MEDS: MELATONIN 5 MG TABLET PO (21:02)
[2022-12-02 21:05] VITALS: BP 121/84; PULSE 100; RESP 18; TEMP 36.1; O2SAT 100
[2022-12-03] MEDS: HYDROcodone/acetaminophen (*CRX) 10-325 MG TABLET 1 TAB PO ×3 (06:06→21:28)
[2022-12-03 06:28] VITALS: BP 120/79; PULSE 94; RESP 16; TEMP 36.1; O2SAT 100
[2022-12-03 06:57] LABS: Albumin Level 3.2 g/dL (3.5-5.1); Anion Gap 6 mmol/L (8-16); Blood Urea Nitrogen 17 mg/dL (9-20); Calcium 8.2 mg/dL (8.4-10.2); Carbon Dioxide 27 mmol/L (22-30); Chloride 94 mmol/L (98-107); Estimated CRCL calculation 126 ml/min; Estimated Glomerular Filt Rate > 60; Glucose 144 mg/dL (65-110); Phosphorus 4.5 mg/dL (2.5-4.5); Potassium 4.2 mmol/L (3.4-5.0); Sodium 127 mmol/L (137-145)
[2022-12-03] MEDS: FOLIC ACID 1 MG TABLET PO (08:00)
[2022-12-03] MEDS: THERAPEUTIC MULTIVITAMINS/MINERALS TAB (*BKC) 1 TABLET PO (08:00)
[2022-12-03] MEDS: THIAMINE HCL 100 MG TABLET PO (08:00)
[2022-12-03] MEDS: FUROSEMIDE INJ 40 MG/4 ML VIAL IV PUSH (10:29)
[2022-12-03] MEDS: SODIUM CHLORIDE 1 GM TABLET PO (10:29)
--- NOTE | 2022-12-03 11:06 | P.PNIM_ITS ---
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, bilateral Code(s): I82.453 - Acute embolism and thrombosis of peroneal vein, bilateral Status: Acute Assessment and Plan: * Chronic since 2010 (11/28/2022 reviewed old chart notes and venous dopplers) * Inferior vena cava filter placed 2010 prior to tx for 6 months with warfarin * Sedentary lifestyle, morbid obesity, smoking are likely contributing factors * Thrombophilia due to occult neoplasm is a consideration * In the presence of an acute bleed and with IVC filter in place, NO anticoagulation now (3) Hyponatremia: Code(s): E87.1 - Hypo-osmolality and hyponatremia Status: Acute Assessment and Plan: * Arpita < 5, c/w prerenal * Appreciate nephrology input. We started patient on 3% NS but it appears patient has high water intake causing dilutional hyponatremia. 3% NS discontinued by Nephrology. Patient placed on fluid restriction. * Monitor BMP q.6 hours Add sodium chloride 2 g b.i.d. p.o., Lasix 80 mg b.i.d. IV Follow-up BMP (4) Anemia due to acute blood loss: Code(s): D62 - Acute posthemorrhagic anemia Status: Acute Assessment and Plan: * Relatively stable since admission (5) Alcohol use, unspecified with unspecified alcohol-induced disorder: Code(s): F10.99 - Alcohol use, unspecified with unspecified alcohol-induced disorder Status: Acute Assessment and Plan: * [facility] protocol (6) Thyroid nodule: Code(s): E04.1 - Nontoxic single thyroid nodule Status: Acute Assessment and Plan: * Discovered on Chest CTA * U/s with benign cyst * TSH WNL (7) Fatty liver due to alcoholism: Code(s): K70.0 - Alcoholic fatty liver Status: Acute (8) Chronic low back pain with bilateral sciatica: Qualifiers: Back pain laterality: bilateral Qualified Code(s): M54.42 - Lumbago with sciatica, left side; M54.41 - Lumbago with sciatica, right side; G89.29 - Other chronic pain Code(s): M54.41 - Lumbago with sciatica, right side; M54.42 - Lumbago with sciatica, left side; G89.29 - Other chronic pain Status: Acute Assessment and Plan: * Severe pain, worse with standing, with bilateral leg pain * CTA Abd/Pelvis showed bilateral L5 pars defect and 3 mm anterolisthesis L5 on S1 * Suspect spinal stenosis * Will need outpatient f/u (9) Inguinal hernia bilateral, non-recurrent: Qualifiers: Obstruction and gangrene presence: without obstruction or gangrene Recurrence: not specified as recurrent Qualified Code(s): K40.20 - Bilateral inguinal hernia, without obstruction or gangrene, not specified as recurrent Code(s): K40.20 - Bilateral inguinal hernia, without obstruction or gangrene, not specified as recurrent Status: Acute Assessment and Plan: * Asymptomatic Subjective Date/time seen: 12/03/22 11:06 Interval history: patient is still in a lot of pain. Patient makes a lot of urine of Dr. Coley's, but still has severe edema of lower extremities, and scrotum edema. Sodium 127. Denies chest pain, palpitation, focal weakness
--- NOTE | 2022-12-03 11:06 | PM.IMPN ---
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, bilateral Code(s): I82.453 - Acute embolism and thrombosis of peroneal vein, bilateral Status: Acute Assessment and Plan: Chronic since 2010 (11/28/2022 reviewed old chart notes and venous dopplers) Inferior vena cava filter placed 2010 prior to tx for 6 months with warfarin Sedentary lifestyle, morbid obesity, smoking are likely contributing factors Thrombophilia due to occult neoplasm is a consideration In the presence of an acute bleed and with IVC filter in place, NO anticoagulation now (3) Hyponatremia: Code(s): E87.1 - Hypo-osmolality and hyponatremia Status: Acute Assessment and Plan: Arpita < 5, c/w prerenal Appreciate nephrology input. We started patient on 3% NS but it appears patient has high water intake causing dilutional hyponatremia. 3% NS discontinued by Nephrology. Patient placed on fluid restriction. Monitor BMP q.6 hours Add sodium chloride 2 g b.i.d. p.o., Lasix 80 mg b.i.d. IV Follow-up BMP (4) Anemia due to acute blood loss: Code(s): D62 - Acute posthemorrhagic anemia Status: Acute Assessment and Plan: Relatively stable since admission (5) Alcohol use, unspecified with unspecified alcohol-induced disorder: Code(s): F10.99 - Alcohol use, unspecified with unspecified alcohol-induced disorder Status: Acute Assessment and Plan: [facility] protocol (6) Thyroid nodule: Code(s): E04.1 - Nontoxic single thyroid nodule Status: Acute Assessment and Plan: Discovered on Chest CTA U/s with benign cyst TSH WNL (7) Fatty liver due to alcoholism: Code(s): K70.0 - Alcoholic fatty liver Status: Acute (8) Chronic low back pain with bilateral sciatica: Qualifiers: Back pain laterality: bilateral Qualified Code(s): M54.42 - Lumbago with sciatica, left side; M54.41 - Lumbago with sciatica, right side; G89.29 - Other chronic pain Code(s): M54.41 - Lumbago with sciatica, right side; M54.42 - Lumbago with sciatica, left side; G89.29 - Other chronic pain Status: Acute Assessment and Plan: Severe pain, worse with standing, with bilateral leg pain CTA Abd/Pelvis showed bilateral L5 pars defect and 3 mm anterolisthesis L5 on S1 Suspect spinal stenosis Will need outpatient f/u (9) Inguinal hernia bilateral, non-recurrent: Qualifiers: Obstruction and gangrene presence: without obstruction or gangrene Recurrence: not specified as recurrent Qualified Code(s): K40.20 - Bilateral inguinal hernia, without obstruction or gangrene, not specified as recurrent Code(s): K40.20 - Bilateral inguinal hernia, without obstruction or gangrene, not specified as recurrent Status: Acute Assessment and Plan: Asymptomatic Subjective Date/time seen: 12/03/22 11:06 Interval history: patient is still in a lot of pain. Patient makes a lot of urine of Dr. Coley's, but still has severe edema of lower extremities, and scrotum edema. Sodium 127. Denies chest pain, palpitation, focal weakness Exam Narrative: GENERAL: Morbidly obese gentleman HEENT: PERRL, sclerae nonicteric, pharyngeal mucosa pink and intact NECK: No JVD, adenopathy, or thyromegaly CHEST: Clear to auscultation. Normal effort. HEART: NL S1/S2, regular, no murmur ABDOMEN: BS+, soft, but protuberant, tender right flank lower quadrant, no palpable mass, EXTREMITIES: Lower extremity with chronic venous stasis changes and no
--- NOTE | 2022-12-03 14:15 | PM.PNNEP ---
Progress Note: A&P Assessment and Plan (1) Hyponatremia: Code(s): E87.1 - Hypo-osmolality and hyponatremia Status: Acute Assessment and Plan: The patient has hyponatremia. The sodium was low back in 2019 on a 1 time blood draw but back in 2017 and before that it was not low. So he has an element of chronic hyponatremia. he also has more recent worsened hyponatremia. Serum and urine osmolality pending. SPEP pending urine sodium is low. TSH and cortisol are okay. He is on narcotics. Other things that cause hyponatremia include Cancer but he has no history of active cancer. 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 In 2019 he was not on any medications that would do this. He was in the emergency room for pain at the time. Patient has been on fluid restriction. Sodium level his stable but not improved He is very swollen. He received a dose of diuretics last night and had a good urine output. Will continue the diuretics mostly to treat the swelling for comfort but will give salt tablets along with that to keep the sodium from dropping. (2) Nontraumatic retroperitoneal hematoma: Code(s): K66.1 - Hemoperitoneum Status: Acute Assessment and Plan: Patient has a retroperitoneal hematoma. It is unclear what caused this. 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 Sapp said. (5) Anemia due to acute blood loss: Code(s): D62 - Acute posthemorrhagic anemia Status: Acute Assessment and Plan: Hemoglobin is 9.4. TSAT is low. ferritin is high. Consistent with anemia of chronic disease. Subjective Date/time seen: 12/03/22 14:15 Interval history: patient is still in a lot of pain. He is making more urine with the diuretics. Exam Narrative: WDWN in NAD skin no rash or subcu nodules head ncat lungs clear cor reg no rub abd BS+ nontender and soft ext 2 to 3+ bilateral edema. Objective Data Vital Signs Vital Signs: Vital Signs - 24 hr 12/02/22 14:25 12/02/22 21:05 12/02/22 20:00 Temperature 97.3 F L 97 F L Pulse Rate 97 100 Respiratory Rate 20 18 Blood Pressure 120/70 121/84 Pulse Oximetry 98 100 Oxygen Delivery Room Air 12/03/22 06:28 12/03/22 08:00 Temperature 97 F L Pulse Rate 94 Respiratory Rate 16 Blood Pressure 120/79 Pulse Oximetry 100 Oxygen Delivery Room Air Intake/Output Intake/Output: Intake & Output 11/30/22 12/01/22 12/02/22 12/03/22 23:59 23:59 23:59 23:59 Intake Total 9130 221 2121 480 Output Total 2610 392 0591 1000 Balance -110 -64 -535 -520 Meds/Results Medications: Active Medications Generic Name Dose Route Start Last Admin Trade Name Freq PRN Reason Stop Dose Admin Acetaminophen 650 mg 11/29/22 09:26 Acetaminophen 325 Mg Tablet PO Q4H PRN Headache Hydrocodone Bitart/Acetaminophen 1 tab 12/02/22 15:34 12/03/22 06:06 Hydrocodone/Acetaminophen (*Crx) 10-325 Mg Tablet PO 1 tab Q6H PRN Administration Pain Rated 7-10 Folic Acid 1 mg 11/30/22 09:00 12/03/22 08:00 Folic Acid 1 Mg Tablet PO 1 mg DAILY ALFRED Administration Furosemide 40 mg 12/03/22 09:55 12/03/22 10:29 Furosemide Inj 40 Mg/4 Ml Vial IV PUSH 40 mg
[2022-12-03 14:32] VITALS: BP 121/89; PULSE 89; RESP 18; TEMP 36.3; O2SAT 100
--- NOTE | 2022-12-03 14:40 | PCPTNOTE ---
Patient refused treatment this session after multiple attempts made. Patient states that he can not get up out of bed due to the swelling. Will continue per PT plan of care.
--- NOTE | 2022-12-03 15:05 | ECHO_ITS ---
Patient Info Name: Dre Yoder Age: 62 years : 1960 Gender: Male Ht: 73 in Wt: 214 lbs BSA: 2.25 m2 HR: 94 bpm BP: 120 / 74 mmHg Heart Rhythm: Sinus Rhythm Technical Quality: Poor Exam Date: 12/03/2022 4:34 PM Exam Location: [facility] Patient Status: Inpatient Admit Date: 11/29/2022 Staff Ordering Physician: Radha Tyson MD Candle Wrapping Machine Operator: Megha Lara RDCS Attending Provider: Marcell Jimenez MD Exam Type: CA echo doppler color flow Study Info Indications - dizziness Complete two-dimensional, color flow and Doppler transthoracic echocardiogram is performed. Summary 1. Complete two-dimensional, color flow and Doppler transthoracic echocardiogram is performed. 2. Technically suboptimal study due to poor sonographic images. 3. Left ventricular chamber dimension is normal. 4. Left ventricular systolic function is normal, estimated at 60-65%. 5. There is mild concentric increased left ventricular wall thickness. 6. The left ventricular diastolic function is abnormal. 7. E/e' 11 is mildly elevated. 8. There is mild aortic valve sclerosis. 9. No pulmonary hypertension, estimated pulmonary arterial systolic pressure is 33 mmHg. Left Ventricle E/e' 11 is mildly elevated. Technically suboptimal study due to poor sonographic images. Left ventricular chamber dimension is normal. Left ventricular systolic function is normal, estimated at 60-65%. There is mild concentric increased left ventricular wall thickness. The left ventricular diastolic function is abnormal. Right Ventricle Right ventricular chamber dimension is normal. Right ventricular systolic function is normal. Left Atria Left atrial chamber dimension is normal. Right Atria Right atrial chamber dimension is normal. Aortic Valve The aortic valve is trileaflet. There is mild aortic valve sclerosis. There is no aortic valve stenosis. There is no aortic valve regurgitation. Pulmonic Valve There is no pulmonic regurgitation. Mitral Valve There is no mitral valve stenosis. There is no mitral valve regurgitation. Tricuspid Valve There is no tricuspid valve regurgitation. No pulmonary hypertension, estimated pulmonary arterial systolic pressure is 33 mmHg. Pericardium/Pleural There is no pericardial effusion. Inferior Vena Cava Normal inferior vena cava with >50% collapse upon inspiration consistent with normal right atrial pressure, 5 mmHg. Aorta The aortic root size at the sinus of Valsalva is normal. Left Ventricular Outflow Tract Name Value Normal LVOT 2D LVOT Diameter 2.0 cm Pulmonic Valve Name Value Normal RVOT Doppler RVOT Peak Gradient 4 mmHg PV Doppler PV Peak Gradient 5 mmHg Mitral Valve Name Value Normal MV Doppler
[2022-12-03] MEDS: traMADol HCL (*CRX) 50 MG TABLET PO (17:19)
[2022-12-03] MEDS: FUROSEMIDE INJ 100 MG/10 ML VIAL 80 MG IV PUSH (17:20)
[2022-12-03] MEDS: SODIUM CHLORIDE 1 GM TABLET 2 GM PO (17:20)
[2022-12-03] MEDS: polyethylene glycoL 3350 17 GM POWD.PACK PO (17:59)
[2022-12-03] MEDS: TAMSULOSIN HCL 0.4 MG CAPSULE PO (21:28)
[2022-12-03] MEDS: MELATONIN 5 MG TABLET PO (21:28)
[2022-12-03 21:50] VITALS: BP 106/78; PULSE 103; RESP 16; TEMP 36.3; O2SAT 99
[2022-12-04 06:00] VITALS: BP 114/73; PULSE 89; RESP 18; TEMP 36.5; O2SAT 98
[2022-12-04 07:46] LABS: Basophils Absolute Auto 0.1 K/mm3 (0.0-0.1); Basophils Percent Auto 0.5 % (0.2-1.2); Eosinophils Absolute Auto 0.2 K/mm3 (0-0.3); Eosinophils Percent Auto 1.5 % (0-4.4); Hematocrit 30.4 % (42.0-52.0); Immature Granulocyte Absolute 0.09 K/mm3 (0.00-0.031); Immature Granulocyte Percent A 0.9 % (0-0.5); Lymphocytes Absolute Auto 1.13 K/mm3 (0.9-3.2); Lymphocytes Percent Auto 11.4 % (18.3-44.2); Mean Corpuscular HGB Conc 32.9 g/dl (32-36); Mean Corpuscular Hemoglobin 32.1 pg (26-34); Mean Corpuscular Volume 97.4 fl (80-100); Mean Platelet Volume 9.5 fl (7.4-10.4); Monocytes Absolute Auto 1.2 K/mm3 (0.1-0.6); Monocytes Percent Auto 12.2 % (2.6-8.5); Neutrophils Absolute Auto 7.3 K/mm3 (1.3-6.7); Neutrophils Percent Auto 73.5 % (45.5-73.1); Platelet Count Result 311 k/mm3 (150-375); Red Blood Count 3.12 M/mm3 (4.6-6.20); Red Cell Distribution Width 13.5 % (11.5-14.5); White Blood Count 9.9 K/mm3 (4.5-10.0)
[2022-12-04 08:09] LABS: Anion Gap 7 mmol/L (8-16); Blood Urea Nitrogen 20 mg/dL (9-20); Calcium 8.6 mg/dL (8.4-10.2); Carbon Dioxide 28 mmol/L (22-30); Chloride 93 mmol/L (98-107); Estimated CRCL calculation 109 ml/min; Estimated Glomerular Filt Rate > 60; Glucose 115 mg/dL (65-110); Potassium 3.8 mmol/L (3.4-5.0); Sodium 128 mmol/L (137-145)
--- NOTE | 2022-12-04 08:27 | PM.IMPN ---
Progress Note: A&P Assessment and Plan (1) Nontraumatic retroperitoneal hematoma: Code(s): K66.1 - Hemoperitoneum Status: Acute Assessment and Plan: Etiology unclear Abd/Pelvis CTA w/o obvious vascular abnormality on 11/27/2022 Monitor h/h F/u CT shows persistent hematoma (2) Acute on chronic diastolic heart failure: Code(s): I50.33 - Acute on chronic diastolic (congestive) heart failure Status: Acute Assessment and Plan: Patient short of breath, echocardiogram December 03, 2022 shows normal EF, diastolic dysfunction Patient has fluid accumulation, bilateral lower extremity edema, scrotal edema Continue Lasix 80 mg b.i.d. 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, bilateral Code(s): I82.453 - Acute embolism and thrombosis of peroneal vein, bilateral Status: Acute Assessment and Plan: Chronic since 2010 (11/28/2022 reviewed old chart notes and venous dopplers) Inferior vena cava filter placed 2010 prior to tx for 6 months with warfarin Sedentary lifestyle, morbid obesity, smoking are likely contributing factors Thrombophilia due to occult neoplasm is a consideration In the presence of an acute bleed and with IVC filter in place, NO anticoagulation now (4) Hyponatremia: Code(s): E87.1 - Hypo-osmolality and hyponatremia Status: Acute Assessment and Plan: Arpita < 5, c/w prerenal Appreciate nephrology input. We started patient on 3% NS but it appears patient has high water intake causing dilutional hyponatremia. 3% NS discontinued by Nephrology. Patient placed on fluid restriction. Monitor BMP q.6 hours Added sodium chloride 2 g b.i.d. p.o., Lasix 80 mg b.i.d. IV Follow-up BMP Na 128 12/04, increase sodium chloride 2 g tid . p.o (5) Anemia due to acute blood loss: Code(s): D62 - Acute posthemorrhagic anemia Status: Acute Assessment and Plan: Relatively stable since admission (6) Alcohol use, unspecified with unspecified alcohol-induced disorder: Code(s): F10.99 - Alcohol use, unspecified with unspecified alcohol-induced disorder Status: Acute Assessment and Plan: [facility] protocol (7) Thyroid nodule: Code(s): E04.1 - Nontoxic single thyroid nodule Status: Acute Assessment and Plan: Discovered on Chest CTA U/s with benign cyst TSH WNL (8) Fatty liver due to alcoholism: Code(s): K70.0 - Alcoholic fatty liver Status: Acute (9) Chronic low back pain with bilateral sciatica: Qualifiers: Back pain laterality: bilateral Qualified Code(s): M54.42 - Lumbago with sciatica, left side; M54.41 - Lumbago with sciatica, right side; G89.29 - Other chronic pain Code(s): M54.41 - Lumbago with sciatica, right side; M54.42 - Lumbago with sciatica, left side; G89.29 - Other chronic pain Status: Acute Assessment and Plan: Severe pain, worse with standing, with bilateral leg pain CTA Abd/Pelvis showed bilateral L5 pars defect and 3 mm anterolisthesis L5 on S1 Suspect spinal stenosis Will need outpatient f/u (10) Inguinal hernia bilateral, non-recurrent: Qualifiers: Obstruction and gangrene presence: without obstruction or gangrene Recurrence: not specified as recurrent Qualified Code(s): K40.20 - Bilateral inguinal hernia, without obstruction or gangrene, not specified as recurrent Code(s): K40.20 - Bilateral inguinal hernia, without obstruction or gangrene, not specified as recurrent Status: Acute Assessment and Plan: Asymptomatic Subjective Date/time seen: 12/04/22 08:28 Interval history: patient is still in a lot of pain. Patient has severe edema of lower extremities, and scrotum edema, but improving on IV Lasix, Sodium 1
[2022-12-04 10:30] VITALS: PULSE 101; RESP 16; O2SAT 99
[2022-12-04] MEDS: THERAPEUTIC MULTIVITAMINS/MINERALS TAB (*BKC) 1 TABLET PO (10:31)
[2022-12-04] MEDS: THIAMINE HCL 100 MG TABLET PO (10:31)
[2022-12-04] MEDS: SODIUM CHLORIDE 1 GM TABLET 2 GM PO ×3 (10:32→18:15)
[2022-12-04] MEDS: FOLIC ACID 1 MG TABLET PO (10:33)
[2022-12-04] MEDS: FUROSEMIDE INJ 100 MG/10 ML VIAL 80 MG IV PUSH ×2 (10:34→18:16)
[2022-12-04] MEDS: HYDROcodone/acetaminophen (*CRX) 10-325 MG TABLET 1 TAB PO ×3 (11:57→23:50)
--- NOTE | 2022-12-04 13:35 | PM.PNNEP ---
Progress Note: A&P Assessment and Plan (1) Hyponatremia: Code(s): E87.1 - Hypo-osmolality and hyponatremia Status: Acute Assessment and Plan: The patient has hyponatremia. The sodium was low back in 2019 on a 1 time blood draw but back in 2017 and before that it was not low. So he has an element of chronic hyponatremia. he also has more recent worsened hyponatremia. Serum and urine osmolality pending. SPEP pending urine sodium is low. TSH and cortisol are okay. He is on narcotics. Other things that cause hyponatremia include Cancer but he has no history of active cancer. 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 In 2019 he was not on any medications that would do this. He was in the emergency room for pain at the time. Patient has been on fluid restriction. Sodium level is a little bit better today. Continuing Fluid restriction, diuretics plus salt tablets. (2) Nontraumatic retroperitoneal hematoma: Code(s): K66.1 - Hemoperitoneum Status: Acute Assessment and Plan: Patient has a retroperitoneal hematoma. It is unclear what caused this. 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 Sapp said. (5) Anemia due to acute blood loss: Code(s): D62 - Acute posthemorrhagic anemia Status: Acute Assessment and Plan: Hemoglobin is 9.4. TSAT is low. ferritin is high. Consistent with anemia of chronic disease. Subjective Date/time seen: 12/04/22 13:35 Interval history: patient is still in a lot of pain. urinating better. Exam Narrative: WDWN in NAD skin no rash or subcu nodules head ncat lungs clear Bilateral cor reg no rub abd BS+ nontender and soft ext 2 to 3+ bilateral edema and no cyanosis. Objective Data Vital Signs Vital Signs: Vital Signs - 24 hr 12/03/22 14:32 12/03/22 21:50 12/03/22 20:00 Temperature 97.3 F L 97.4 F L Pulse Rate 89 103 H Respiratory Rate 18 16 Blood Pressure 121/89 106/78 Pulse Oximetry 100 99 Oxygen Delivery Room Air 12/04/22 06:00 Temperature 97.7 F Pulse Rate 89 Respiratory Rate 18 Blood Pressure 114/73 Pulse Oximetry 98 Oxygen Delivery Intake/Output Intake/Output: Intake & Output 12/01/22 12/02/22 12/03/22 12/04/22 23:59 23:59 23:59 23:59 Intake Total 916 1040 1160 150 Output Total 980 1575 2100 600 [facility] -64 -535 -940 -450 Meds/Results Medications: Active Medications Generic Name Dose Route Start Last Admin Trade Name Freq PRN Reason Stop Dose Admin Acetaminophen 650 mg 11/29/22 09:26 Acetaminophen 325 Mg Tablet PO Q4H PRN Headache Hydrocodone Bitart/Acetaminophen 1 tab 12/02/22 15:34 12/04/22 11:57 Hydrocodone/Acetaminophen (*Crx) 10-325 Mg Tablet PO 1 tab Q6H PRN Administration Pain Rated 7-10 Folic Acid 1 mg 11/30/22 09:00 12/04/22 10:33 Folic Acid 1 Mg Tablet PO 1 mg DAILY ALFRED Administration Furosemide 80 mg 12/03/22 17:00 12/04/22 10:34 Furosemide Inj 100 Mg/10 Ml Vial IV PUSH 80 mg BID ALFRED Administration Melatonin 5 mg 11/27/22 23:55 12/03/22 21:28 Melatonin 5 Mg Tablet PO 5 mg HS ALFRED Administration Multivitamins/Calcium 1 tablet 11/30/22 09:00 12/04/22 10
[2022-12-04 14:25] VITALS: BP 118/67; PULSE 101; RESP 16; TEMP 36.6; O2SAT 99
[2022-12-04 20:34] LABS: Osmolality, Urine 734 mOsm/kg (50-1200)
[2022-12-04] MEDS: MELATONIN 5 MG TABLET PO (20:46)
[2022-12-04] MEDS: TAMSULOSIN HCL 0.4 MG CAPSULE PO (20:46)
[2022-12-04 22:00] VITALS: BP 123/77; PULSE 95; RESP 20; TEMP 36.4; O2SAT 99
[2022-12-04] MEDS: polyethylene glycoL 3350 17 GM POWD.PACK PO (23:50)
[2022-12-05] MEDS: HYDROcodone/acetaminophen (*CRX) 10-325 MG TABLET 1 TAB PO ×3 (05:57→18:48)
[2022-12-05 06:00] VITALS: BP 115/70; PULSE 81; RESP 18; TEMP 36.5; O2SAT 99
[2022-12-05 07:24] LABS: Basophils Absolute Auto 0.1 K/mm3 (0.0-0.1); Basophils Percent Auto 0.7 % (0.2-1.2); Eosinophils Absolute Auto 0.2 K/mm3 (0-0.3); Eosinophils Percent Auto 2.1 % (0-4.4); Hematocrit 29.5 % (42.0-52.0); Hemoglobin 9.9 g/dL (14.0-18.0); Immature Granulocyte Percent A 1.1 % (0-0.5); Lymphocytes Absolute Auto 1.05 K/mm3 (0.9-3.2); Lymphocytes Percent Auto 11.8 % (18.3-44.2); Mean Corpuscular HGB Conc 33.6 g/dl (32-36); Mean Corpuscular Hemoglobin 32.9 pg (26-34); Mean Platelet Volume 9.1 fl (7.4-10.4); Monocytes Absolute Auto 0.9 K/mm3 (0.1-0.6); Monocytes Percent Auto 10.2 % (2.6-8.5); Neutrophils Absolute Auto 6.6 K/mm3 (1.3-6.7); Neutrophils Percent Auto 74.1 % (45.5-73.1); Platelet Count Result 323 k/mm3 (150-375); Red Blood Count 3.01 M/mm3 (4.6-6.20); Red Cell Distribution Width 13.7 % (11.5-14.5); White Blood Count 8.9 K/mm3 (4.5-10.0)
[2022-12-05 07:30] LABS: Albumin Level 3.2 g/dL (3.5-5.1); Anion Gap 3 mmol/L (8-16); Blood Urea Nitrogen 21 mg/dL (9-20); Calcium 8.5 mg/dL (8.4-10.2); Carbon Dioxide 35 mmol/L (22-30); Chloride 91 mmol/L (98-107); Estimated CRCL calculation 97 ml/min; Estimated Glomerular Filt Rate > 60; Glucose 116 mg/dL (65-110); Phosphorus 4.3 mg/dL (2.5-4.5); Potassium 3.5 mmol/L (3.4-5.0); Sodium 129 mmol/L (137-145)
[2022-12-05 08:00] VITALS: PULSE 81; RESP 18; O2SAT 99
[2022-12-05] MEDS: THIAMINE HCL 100 MG TABLET PO (08:31)
[2022-12-05] MEDS: FUROSEMIDE INJ 100 MG/10 ML VIAL 80 MG IV PUSH ×2 (08:31→16:07)
[2022-12-05] MEDS: FOLIC ACID 1 MG TABLET PO (08:31)
[2022-12-05] MEDS: SODIUM CHLORIDE 1 GM TABLET 2 GM PO ×3 (08:31→16:07)
[2022-12-05] MEDS: THERAPEUTIC MULTIVITAMINS/MINERALS TAB (*BKC) 1 TABLET PO (08:31)
[2022-12-05] MEDS: traMADol HCL (*CRX) 50 MG TABLET PO ×3 (08:37→20:39)
--- NOTE | 2022-12-05 08:46 | PM.IMPN ---
Progress Note: A&P Assessment and Plan (1) Nontraumatic retroperitoneal hematoma: Code(s): K66.1 - Hemoperitoneum Status: Acute Assessment and Plan: Etiology unclear Abd/Pelvis CTA w/o obvious vascular abnormality on 11/27/2022 Monitor h/h F/u CT shows persistent hematoma (2) Acute on chronic diastolic heart failure: Code(s): I50.33 - Acute on chronic diastolic (congestive) heart failure Status: Acute Assessment and Plan: Patient short of breath, echocardiogram December 03, 2022 shows normal EF, diastolic dysfunction Patient has fluid accumulation, bilateral lower extremity edema, scrotal edema Continue Lasix 80 mg b.i.d. 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, bilateral Code(s): I82.453 - Acute embolism and thrombosis of peroneal vein, bilateral Status: Acute Assessment and Plan: Chronic since 2010 (11/28/2022 reviewed old chart notes and venous dopplers) Inferior vena cava filter placed 2010 prior to tx for 6 months with warfarin Sedentary lifestyle, morbid obesity, smoking are likely contributing factors Thrombophilia due to occult neoplasm is a consideration In the presence of an acute bleed and with IVC filter in place, NO anticoagulation now (4) Hyponatremia: Code(s): E87.1 - Hypo-osmolality and hyponatremia Status: Acute Assessment and Plan: Arpita < 5, c/w prerenal Appreciate nephrology input. We started patient on 3% NS but it appears patient has high water intake causing dilutional hyponatremia. 3% NS discontinued by Nephrology. Patient placed on fluid restriction. Monitor BMP q.6 hours Added sodium chloride 2 g b.i.d. p.o., Lasix 80 mg b.i.d. IV Follow-up BMP Na 128 12/04, increase sodium chloride 2 g tid . p.o Sodium level is improving slowly Sodium 129 on December 05 (5) Anemia due to acute blood loss: Code(s): D62 - Acute posthemorrhagic anemia Status: Acute Assessment and Plan: Relatively stable since admission (6) Alcohol use, unspecified with unspecified alcohol-induced disorder: Code(s): F10.99 - Alcohol use, unspecified with unspecified alcohol-induced disorder Status: Acute Assessment and Plan: DC [facility] protocol (7) Thyroid nodule: Code(s): E04.1 - Nontoxic single thyroid nodule Status: Acute Assessment and Plan: Discovered on Chest CTA U/s with benign cyst TSH WNL (8) Fatty liver due to alcoholism: Code(s): K70.0 - Alcoholic fatty liver Status: Acute (9) Chronic low back pain with bilateral sciatica: Qualifiers: Back pain laterality: bilateral Qualified Code(s): M54.42 - Lumbago with sciatica, left side; M54.41 - Lumbago with sciatica, right side; G89.29 - Other chronic pain Code(s): M54.41 - Lumbago with sciatica, right side; M54.42 - Lumbago with sciatica, left side; G89.29 - Other chronic pain Status: Acute Assessment and Plan: Severe pain, worse with standing, with bilateral leg pain CTA Abd/Pelvis showed bilateral L5 pars defect and 3 mm anterolisthesis L5 on S1 Suspect spinal stenosis Will need outpatient f/u (10) Inguinal hernia bilateral, non-recurrent: Qualifiers: Obstruction and gangrene presence: without obstruction or gangrene Recurrence: not specified as recurrent Qualified Code(s): K40.20 - Bilateral inguinal hernia, without obstruction or gangrene, not specified as recurrent Code(s): K40.20 - Bilateral inguinal hernia, without obstruction or gangrene, not specified as recurrent Status: Acute Assessment and Plan: Asymptomatic Subjective Date/time seen: 12/05/22 08:46 Interval history: I saw exam patient, patient feels short of breath and abdomen pain is improvin
--- NOTE | 2022-12-05 11:41 | PM.PNNEP ---
Progress Note: A&P Assessment and Plan (1) Hyponatremia: Code(s): E87.1 - Hypo-osmolality and hyponatremia Status: Acute Assessment and Plan: The patient has hyponatremia. The sodium was low back in 2019 on a 1 time blood draw but back in 2017 and before that it was not low. So he has an element of chronic hyponatremia. he also has more recent worsened hyponatremia. Serum and urine osmolality pending. SPEP pending urine sodium is low. TSH and cortisol are okay. He is on narcotics. Other things that cause hyponatremia include Cancer but he has no history of active cancer. 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 In 2019 he was not on any medications that would do this. He was in the emergency room for pain at the time. Patient has been on fluid restriction. Sodium level is still 129. he is on fluid restriction, Lasix, salt tablets. (2) Nontraumatic retroperitoneal hematoma: Code(s): K66.1 - Hemoperitoneum Status: Acute Assessment and Plan: Patient has a retroperitoneal hematoma. It is unclear what caused this. 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 Sapp said. Edema seems to be improving a little bit with the diuretics. (5) Anemia due to acute blood loss: Code(s): D62 - Acute posthemorrhagic anemia Status: Acute Assessment and Plan: Hemoglobin is 9.4. TSAT is low. ferritin is high. Consistent with anemia of chronic disease. Subjective Date/time seen: 12/05/22 11:41 Interval history: patient is still in a lot of pain. he did get up in a chair yesterday though. He walked around a little bit as well. Exam Narrative: WDWN in NAD skin no rash or subcu nodules head ncat lungs clear bilaterally cor reg no rub abd BS+ nontender and soft ext 2 to 3+ bilateral edema and no cyanosis. Objective Data Vital Signs Vital Signs: Vital Signs - 24 hr 12/04/22 14:25 12/04/22 22:00 12/04/22 20:00 Temperature 97.8 F 97.6 F Pulse Rate 101 H 95 Respiratory Rate 16 20 Blood Pressure 118/67 123/77 Pulse Oximetry 99 99 Oxygen Delivery Room Air 12/05/22 06:00 12/05/22 08:00 Temperature 97.7 F Pulse Rate 81 81 Respiratory Rate 18 18 Blood Pressure 115/70 Pulse Oximetry 99 99 Oxygen Delivery Room Air Intake/Output Intake/Output: Intake & Output 12/02/22 12/03/22 12/04/22 12/05/22 23:59 23:59 23:59 23:59 Intake Total 1040 1160 390 740 Output Total 1575 2100 1999 200 Balance 535 940 -1610 540 Meds/Results Medications: Active Medications Generic Name Dose Route Start Last Admin Trade Name Freq PRN Reason Stop Dose Admin Acetaminophen 650 mg 11/29/22 09:26 Acetaminophen 325 Mg Tablet PO Q4H PRN Headache Hydrocodone Bitart/Acetaminophen 1 tab 12/02/22 15:34 12/05/22 05:57 Hydrocodone/Acetaminophen (*Crx) 10-325 Mg Tablet PO 1 tab Q6H PRN Administration Pain Rated 7-10 Folic Acid 1 mg 11/30/22 09:00 12/05/22 08:31 Folic Acid 1 Mg Tablet PO 1 mg DAILY ALFRED Administration Furosemide 80 mg 12/03/22 17:00 12/05/22 08:31 Furosemide Inj 100 Mg/10 Ml Vial IV PUSH 80 mg BID ALFRED Administration Melatonin 5 mg 11/27/22 23:55 07
[2022-12-05] MEDS: polyethylene glycoL 3350 17 GM POWD.PACK PO ×2 (12:27→20:39)
[2022-12-05 14:50] VITALS: BP 138/116; PULSE 91; RESP 16; TEMP 36.4; O2SAT 95
[2022-12-05] MEDS: MELATONIN 5 MG TABLET PO (20:38)
[2022-12-05] MEDS: TAMSULOSIN HCL 0.4 MG CAPSULE PO (20:38)
[2022-12-05 22:00] VITALS: BP 128/87; PULSE 73; RESP 20; TEMP 36.8; O2SAT 98
[2022-12-06] MEDS: HYDROcodone/acetaminophen (*CRX) 10-325 MG TABLET 1 TAB PO ×4 (01:09→20:00)
[2022-12-06 06:00] VITALS: BP 107/83; PULSE 90; RESP 18; TEMP 36.6; O2SAT 98
[2022-12-06 07:16] LABS: Basophils Absolute Auto 0.1 K/mm3 (0.0-0.1); Basophils Percent Auto 1.1 % (0.2-1.2); Eosinophils Absolute Auto 0.3 K/mm3 (0-0.3); Eosinophils Percent Auto 3.1 % (0-4.4); Hematocrit 30.3 % (42.0-52.0); Hemoglobin 9.9 g/dL (14.0-18.0); Immature Granulocyte Absolute 0.09 K/mm3 (0.00-0.031); Lymphocytes Absolute Auto 1.28 K/mm3 (0.9-3.2); Lymphocytes Percent Auto 13.8 % (18.3-44.2); Mean Corpuscular HGB Conc 32.7 g/dl (32-36); Mean Corpuscular Hemoglobin 31.7 pg (26-34); Mean Corpuscular Volume 97.1 fl (80-100); Mean Platelet Volume 9.3 fl (7.4-10.4); Monocytes Absolute Auto 0.9 K/mm3 (0.1-0.6); Monocytes Percent Auto 9.9 % (2.6-8.5); Neutrophils Absolute Auto 6.6 K/mm3 (1.3-6.7); Neutrophils Percent Auto 71.1 % (45.5-73.1); Platelet Count Result 344 k/mm3 (150-375); Red Blood Count 3.12 M/mm3 (4.6-6.20); Red Cell Distribution Width 13.8 % (11.5-14.5); White Blood Count 9.3 K/mm3 (4.5-10.0)
[2022-12-06 07:35] LABS: Albumin Level 3.2 g/dL (3.5-5.1); Anion Gap 5 mmol/L (8-16); Blood Urea Nitrogen 22 mg/dL (9-20); Calcium 8.4 mg/dL (8.4-10.2); Carbon Dioxide 33 mmol/L (22-30); Chloride 90 mmol/L (98-107); Estimated CRCL calculation 109 ml/min; Estimated Glomerular Filt Rate > 60; Glucose 116 mg/dL (65-110); Phosphorus 4.1 mg/dL (2.5-4.5); Potassium 3.3 mmol/L (3.4-5.0); Sodium 128 mmol/L (137-145)
[2022-12-06 07:47] VITALS: O2SAT 98
[2022-12-06] MEDS: FUROSEMIDE INJ 100 MG/10 ML VIAL 80 MG IV PUSH ×2 (08:43→16:22)
[2022-12-06] MEDS: THIAMINE HCL 100 MG TABLET PO (08:44)
[2022-12-06] MEDS: THERAPEUTIC MULTIVITAMINS/MINERALS TAB (*BKC) 1 TABLET PO (08:44)
[2022-12-06] MEDS: SODIUM CHLORIDE 1 GM TABLET 2 GM PO ×3 (08:44→16:22)
[2022-12-06] MEDS: FOLIC ACID 1 MG TABLET PO (08:44)
--- NOTE | 2022-12-06 08:47 | P.PNIM_ITS ---
Progress Note: A&P Assessment and Plan (1) Nontraumatic retroperitoneal hematoma: Code(s): K66.1 - Hemoperitoneum Status: Acute Assessment and Plan: * Etiology unclear * Abd/Pelvis CTA w/o obvious vascular abnormality on 11/27/2022 * Monitor h/h * F/u CT shows persistent hematoma (2) Acute on chronic diastolic heart failure: Code(s): I50.33 - Acute on chronic diastolic (congestive) heart failure Status: Acute Assessment and Plan: Patient short of breath, echocardiogram December 03, 2022 shows normal EF, diastolic dysfunction Patient has fluid accumulation, bilateral lower extremity edema, scrotal edema Lasix 80 mg t.i.d. 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, bilateral Code(s): I82.453 - Acute embolism and thrombosis of peroneal vein, bilateral Status: Acute Assessment and Plan: * Chronic since 2010 (11/28/2022 reviewed old chart notes and venous dopplers) * Inferior vena cava filter placed 2010 prior to tx for 6 months with warfarin * Sedentary lifestyle, morbid obesity, smoking are likely contributing factors * Thrombophilia due to occult neoplasm is a consideration * In the presence of an acute bleed and with IVC filter in place, NO anticoagulation now (4) Hyponatremia: Code(s): E87.1 - Hypo-osmolality and hyponatremia Status: Acute Assessment and Plan: * Arpita < 5, c/w prerenal * Appreciate nephrology input. We started patient on 3% NS but it appears gume ent has high water intake causing dilutional hyponatremia. 3% NS discontinued by Nephrology. Patient placed on fluid restriction. * Monitor BMP q.6 hours Added sodium chloride 2 g b.i.d. p.o., Lasix 80 mg b.i.d. IV Follow-up BMP Na 128 12/04, increase sodium chloride 2 g tid . p.o Sodium level is improving slowly Sodium 129 on December 05 (5) Anemia due to acute blood loss: Code(s): D62 - Acute posthemorrhagic anemia Status: Acute Assessment and Plan: * Relatively stable since admission (6) Alcohol use, unspecified with unspecified alcohol-induced disorder: Code(s): F10.99 - Alcohol use, unspecified with unspecified alcohol-induced disorder Status: Acute Assessment and Plan: * DC [facility] protocol (7) Thyroid nodule: Code(s): E04.1 - Nontoxic single thyroid nodule Status: Acute Assessment and Plan: * Discovered on Chest CTA * U/s with benign cyst * TSH WNL (8) Fatty liver due to alcoholism: Code(s): K70.0 - Alcoholic fatty liver Status: Acute (9) Chronic low back pain with bilateral sciatica: Qualifiers: Back pain laterality: bilateral Qualified Code(s): M54.42 - Lumbago with sciatica, left side; M54.41 - Lumbago with sciatica, right side; G89.29 - Other chronic pain Code(s): M54.41 - Lumbago with sciatica, right side; M54.42 - Lumbago with sciatica, left side; G89.29 - Other chronic pain Status: Acute Assessment and Plan: * Severe pain, worse with standing, with bilateral leg pain * CTA Abd/Pelvis showed bilateral L5 pars defect and 3 mm anterolisthesis L5 on S1 * Suspect spinal stenosis * Will need outpatient f/u * Patient ambulates without focal weakness or abnormal sensation (10) Inguinal hernia bilateral, non-recurrent: Qualifiers: O
--- NOTE | 2022-12-06 08:47 | PM.IMPN ---
Progress Note: A&P Assessment and Plan (1) Nontraumatic retroperitoneal hematoma: Code(s): K66.1 - Hemoperitoneum Status: Acute Assessment and Plan: Etiology unclear Abd/Pelvis CTA w/o obvious vascular abnormality on 11/27/2022 Monitor h/h F/u CT shows persistent hematoma (2) Acute on chronic diastolic heart failure: Code(s): I50.33 - Acute on chronic diastolic (congestive) heart failure Status: Acute Assessment and Plan: Patient short of breath, echocardiogram December 03, 2022 shows normal EF, diastolic dysfunction Patient has fluid accumulation, bilateral lower extremity edema, scrotal edema Lasix 80 mg t.i.d. 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, bilateral Code(s): I82.453 - Acute embolism and thrombosis of peroneal vein, bilateral Status: Acute Assessment and Plan: Chronic since 2010 (11/28/2022 reviewed old chart notes and venous dopplers) Inferior vena cava filter placed 2010 prior to tx for 6 months with warfarin Sedentary lifestyle, morbid obesity, smoking are likely contributing factors Thrombophilia due to occult neoplasm is a consideration In the presence of an acute bleed and with IVC filter in place, NO anticoagulation now (4) Hyponatremia: Code(s): E87.1 - Hypo-osmolality and hyponatremia Status: Acute Assessment and Plan: Arpita < 5, c/w prerenal Appreciate nephrology input. We started patient on 3% NS but it appears patient has high water intake causing dilutional hyponatremia. 3% NS discontinued by Nephrology. Patient placed on fluid restriction. Monitor BMP q.6 hours Added sodium chloride 2 g b.i.d. p.o., Lasix 80 mg b.i.d. IV Follow-up BMP Na 128 12/04, increase sodium chloride 2 g tid . p.o Sodium level is improving slowly Sodium 129 on December 05 (5) Anemia due to acute blood loss: Code(s): D62 - Acute posthemorrhagic anemia Status: Acute Assessment and Plan: Relatively stable since admission (6) Alcohol use, unspecified with unspecified alcohol-induced disorder: Code(s): F10.99 - Alcohol use, unspecified with unspecified alcohol-induced disorder Status: Acute Assessment and Plan: [facility] protocol (7) Thyroid nodule: Code(s): E04.1 - Nontoxic single thyroid nodule Status: Acute Assessment and Plan: Discovered on Chest CTA U/s with benign cyst TSH WNL (8) Fatty liver due to alcoholism: Code(s): K70.0 - Alcoholic fatty liver Status: Acute (9) Chronic low back pain with bilateral sciatica: Qualifiers: Back pain laterality: bilateral Qualified Code(s): M54.42 - Lumbago with sciatica, left side; M54.41 - Lumbago with sciatica, right side; G89.29 - Other chronic pain Code(s): M54.41 - Lumbago with sciatica, right side; M54.42 - Lumbago with sciatica, left side; G89.29 - Other chronic pain Status: Acute Assessment and Plan: Severe pain, worse with standing, with bilateral leg pain CTA Abd/Pelvis showed bilateral L5 pars defect and 3 mm anterolisthesis L5 on S1 Suspect spinal stenosis Will need outpatient f/u Patient ambulates without focal weakness or abnormal sensation (10) Inguinal hernia bilateral, non-recurrent: Qualifiers: Obstruction and gangrene presence: without obstruction or gangrene Recurrence: not specified as recurrent Qualified Code(s): K40.20 - Bilateral inguinal hernia, without obstruction or gangrene, not specified as recurrent Code(s): K40.20 - Bilateral inguinal hernia, without obstruction or gangrene, not specified as recurrent Status: Acute Assessment and Plan: Asymptomatic
[2022-12-06] MEDS: traMADol HCL (*CRX) 50 MG TABLET PO ×2 (08:50→14:50)
[2022-12-06] MEDS: polyethylene glycoL 3350 17 GM POWD.PACK PO (08:50)
--- NOTE | 2022-12-06 10:20 | PM.PNNEP ---
Progress Note: A&P Assessment and Plan (1) Hyponatremia: Code(s): E87.1 - Hypo-osmolality and hyponatremia Status: Acute Assessment and Plan: The patient has hyponatremia. The sodium was low back in 2019 on a 1 time blood draw but back in 2017 and before that it was not low. So he has an element of chronic hyponatremia. he also has more recent worsened hyponatremia. 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 Serum osmolality is same is calculated. SPEP pending urine sodium is low. TSH and cortisol are okay. He is on narcotics. Other things that cause hyponatremia include Cancer but he has no history of active cancer. 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 In 2019 he was not on any medications that would do this. He was in the emergency room for pain at the time. Most likely hyponatremia is a combination of large volumes of water, narcotics, and some pre renal factors due to intravascular volume depletion. Patient has been on fluid restriction. Sodium level is stable in the high 120s. he is on fluid restriction, Lasix, salt tablets. (2) Nontraumatic retroperitoneal hematoma: Code(s): K66.1 - Hemoperitoneum Status: Acute Assessment and Plan: Patient has a retroperitoneal hematoma. It is unclear what caused this. 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 Sapp said. Edema seems to be improving a little bit with the diuretics. (5) Anemia due to acute blood loss: Code(s): D62 - Acute posthemorrhagic anemia Status: Acute Assessment and Plan: Hemoglobin is 9.9. TSAT is low. ferritin is high. Consistent with anemia of chronic disease. Subjective Date/time seen: 12/06/22 10:20 Interval history: patient is seems to be more comfortable. Swelling is better. Scrotum is less swollen Exam Narrative: WDWN in NAD skin no rash or subcu nodules head ncat lungs clear to auscultation cor reg no rub or gallop abd BS+ nontender and soft ext 2 to 3+ bilateral edema and no cyanosis. Objective Data Vital Signs Vital Signs: Vital Signs - 24 hr 12/05/22 14:50 12/05/22 20:00 12/05/22 22:00 Temperature 97.6 F 98.2 F Pulse Rate 91 73 Respiratory Rate 16 20 Blood Pressure 138/116 H 128/87 Pulse Oximetry 95 98 Oxygen Delivery Room Air 12/06/22 06:00 12/06/22 07:47 Temperature 97.8 F Pulse Rate 90 Respiratory Rate 18 Blood Pressure 107/83 Pulse Oximetry 98 98 Oxygen Delivery Room Air Intake/Output Intake/Output: Intake & Output 12/03/22 12/04/22 12/05/22 12/06/22 23:59 23:59 23:59 23:59 Intake Total 2737 706 5956 150 Output Total 2100 1999 805 750 Balance -940 -1610 355 -600 Meds/Results Medications: Active Medications Generic Name Dose Route Start Last Admin Trade Name Freq PRN Reason Stop Dose Admin Acetaminophen 650 mg 11/29/22 09:26 Acetaminophen 325 Mg Tablet PO Q4H PRN Headache Hydrocodone Bitart/Acetaminophen 1 tab 12/02/22 15:34 12/06/22 06:13 Hydrocodone/Acetaminophen (*Crx) 10-325 Mg Tablet PO 1 tab Q6H PRN Administration Pain Rated 7-10 Folic Acid 1 mg 11/30/22 09:00 12/06/22 08:44 Folic Acid 1 Mg Tablet PO 1 mg DAILY
[2022-12-06] MEDS: POTASSIUM CHLORIDE 20 MEQ ER TABLET 40 MEQ PO (12:19)
[2022-12-06 14:00] VITALS: BP 115/77; PULSE 82; RESP 18; TEMP 36.4; O2SAT 100
[2022-12-06] MEDS: TAMSULOSIN HCL 0.4 MG CAPSULE PO (20:00)
[2022-12-06] MEDS: MELATONIN 5 MG TABLET PO (20:01)
[2022-12-06 22:00] VITALS: BP 114/75; PULSE 92; RESP 14; TEMP 36.4; O2SAT 98
[2022-12-07] MEDS: FUROSEMIDE INJ 100 MG/10 ML VIAL 80 MG IV PUSH ×3 (01:38→17:29)
[2022-12-07] MEDS: HYDROcodone/acetaminophen (*CRX) 10-325 MG TABLET 1 TAB PO ×4 (01:38→21:16)
[2022-12-07 06:00] VITALS: BP 102/65; PULSE 73; RESP 16; TEMP 36.2; O2SAT 99
--- NOTE | 2022-12-07 07:34 | PM.PNNEP ---
Progress Note: A&P Assessment and Plan (1) Hyponatremia: Code(s): E87.1 - Hypo-osmolality and hyponatremia Status: Acute Assessment and Plan: The patient has hyponatremia. The sodium was low back in 2019 on a 1 time blood draw but back in 2017 and before that it was not low. So he has an element of chronic hyponatremia. he also has more recent worsened hyponatremia. 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 Serum osmolality is same is calculated. SPEP pending urine sodium is low. TSH and cortisol are okay. He is on narcotics. Other things that cause hyponatremia include Cancer but he has no history of active cancer. 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 In 2019 he was not on any medications that would do this. He was in the emergency room for pain at the time. Most likely hyponatremia is a combination of large volumes of water, narcotics, pain, and some pre renal factors due to intravascular volume depletion. Patient has been on fluid restriction. Sodium level is stable still he is on fluid restriction, Lasix, salt tablets. the fluid restriction is for the hyponatremia. the lasix is for the edema. the salt tabs keep the lasix from dropping the sodium. once he is off lasix he can come off the salt tabs. (2) Nontraumatic retroperitoneal hematoma: Code(s): K66.1 - Hemoperitoneum Status: Acute Assessment and Plan: Patient has a retroperitoneal hematoma. It is unclear what caused this. 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 Sapp said. Edema seems to be improving a little bit with the diuretics. (5) Anemia due to acute blood loss: Code(s): D62 - Acute posthemorrhagic anemia Status: Acute Assessment and Plan: Hemoglobin is 9.9. TSAT is low. ferritin is high. Consistent with anemia of chronic disease. check cbc in am. Subjective Date/time seen: 12/07/22 07:34 Interval history: patient is seems to be more comfortable. pain down to a 7/10 Swelling is improving. I can only feel one testicle sometimes one could be up next to the body. he will talk with PCP Exam Narrative: WDWN in NAD skin no rash or subcu nodules head ncat lungs clear bilaterally cor reg no rub or gallop abd BS+ nontender and soft ext 2 to 3+ bilateral edema scrotum is smaller Objective Data Vital Signs Vital Signs: Vital Signs - 24 hr 12/06/22 07:47 12/06/22 14:00 12/06/22 20:00 Temperature 97.5 F L Pulse Rate 82 Respiratory Rate 18 Blood Pressure 115/77 Pulse Oximetry 98 100 Oxygen Delivery Room Air Room Air 12/06/22 22:00 Temperature 97.6 F Pulse Rate 92 Respiratory Rate 14 Blood Pressure 114/75 Pulse Oximetry 98 Oxygen Delivery Intake/Output Intake/Output: Intake & Output 12/04/22 12/05/22 12/06/22 12/07/22 23:59 23:59 23:59 23:59 Intake Total 390 1160 150 Output Total 2808.568.6776 300 Balance -1610 676 -2275 -553 Meds/Results Medications: Active Medications Generic Name Dose Route Start Last Admin Trade Name Freq PRN Reason Stop Dose Admin Acetaminophen 650 mg 11/29/22 09:26 Acetaminophen 325 Mg Tablet PO Q4H PRN Headache Hydrocodone Bitart/A
[2022-12-07 08:36] LABS: Anion Gap 3 mmol/L (8-16); Blood Urea Nitrogen 21 mg/dL (9-20); Calcium 8.5 mg/dL (8.4-10.2); Carbon Dioxide 36 mmol/L (22-30); Chloride 90 mmol/L (98-107); Estimated CRCL calculation 109 ml/min; Estimated Glomerular Filt Rate > 60; Glucose 150 mg/dL (65-110); Potassium 3.2 mmol/L (3.4-5.0); Sodium 129 mmol/L (137-145)
[2022-12-07] MEDS: polyethylene glycoL 3350 17 GM POWD.PACK PO (09:04)
[2022-12-07] MEDS: SODIUM CHLORIDE 1 GM TABLET 2 GM PO ×3 (09:05→17:29)
[2022-12-07] MEDS: FOLIC ACID 1 MG TABLET PO (09:05)
[2022-12-07] MEDS: THERAPEUTIC MULTIVITAMINS/MINERALS TAB (*BKC) 1 TABLET PO (09:05)
[2022-12-07] MEDS: THIAMINE HCL 100 MG TABLET PO (09:06)
--- NOTE | 2022-12-07 10:28 | PCNWS ---
Weekly nutritional screen. Patient is tolerating current heart healthy diet with adequate intake at 75-100% of meals. No weight loss reported. No nutritional needs at this time.
--- NOTE | 2022-12-07 11:06 | P.PNIM_ITS ---
Progress Note: A&P Assessment and Plan (1) Nontraumatic retroperitoneal hematoma: Code(s): K66.1 - Hemoperitoneum Status: Acute Assessment and Plan: * Etiology unclear * Abd/Pelvis CTA w/o obvious vascular abnormality on 11/27/2022 * Monitor h/h * F/u CT shows persistent hematoma (2) Acute on chronic diastolic heart failure: Code(s): I50.33 - Acute on chronic diastolic (congestive) heart failure Status: Acute Assessment and Plan: Patient short of breath, echocardiogram December 03, 2022 shows normal EF, diastolic dysfunction Patient has fluid accumulation, bilateral lower extremity edema, scrotal edema Lasix 80 mg t.i.d. 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, bilateral Code(s): I82.453 - Acute embolism and thrombosis of peroneal vein, bilateral Status: Acute Assessment and Plan: * Chronic since 2010 (11/28/2022 reviewed old chart notes and venous dopplers) * Inferior vena cava filter placed 2010 prior to tx for 6 months with warfarin * Sedentary lifestyle, morbid obesity, smoking are likely contributing factors * Thrombophilia due to occult neoplasm is a consideration * In the presence of an acute bleed and with IVC filter in place, NO anticoagulation now (4) Hyponatremia: Code(s): E87.1 - Hypo-osmolality and hyponatremia Status: Acute Assessment and Plan: * Arpita < 5, c/w prerenal * Appreciate nephrology input. We started patient on 3% NS but it appears gume ent has high water intake causing dilutional hyponatremia. 3% NS discontinued by Nephrology. Patient placed on fluid restriction. * Monitor BMP q.6 hours Added sodium chloride 2 g b.i.d. p.o., c/w Lasix 80 mg tid IV Follow-up BMP Na 128 12/04, c/w sodium chloride 2 g tid . p.o Sodium level is improving slowly Sodium 129 on December 06 (5) Anemia due to acute blood loss: Code(s): D62 - Acute posthemorrhagic anemia Status: Acute Assessment and Plan: * Relatively stable since admission (6) Alcohol use, unspecified with unspecified alcohol-induced disorder: Code(s): F10.99 - Alcohol use, unspecified with unspecified alcohol-induced disorder Status: Acute Assessment and Plan: * [facility] protocol (7) Thyroid nodule: Code(s): E04.1 - Nontoxic single thyroid nodule Status: Acute Assessment and Plan: * Discovered on Chest CTA * U/s with benign cyst * TSH WNL (8) Fatty liver due to alcoholism: Code(s): K70.0 - Alcoholic fatty liver Status: Acute (9) Chronic low back pain with bilateral sciatica: Qualifiers: Back pain laterality: bilateral Qualified Code(s): M54.42 - Lumbago with sciatica, left side; M54.41 - Lumbago with sciatica, right side; G89.29 - Other chronic pain Code(s): M54.41 - Lumbago with sciatica, right side; M54.42 - Lumbago with sciatica, left side; G89.29 - Other chronic pain Status: Acute Assessment and Plan: * Severe pain, worse with standing, with bilateral leg pain * CTA Abd/Pelvis showed bilateral L5 pars defect and 3 mm anterolisthesis L5 on S1 * Suspect spinal stenosis * Will need outpatient f/u * Patient ambulates without focal weakness or abnormal sensation (10) Inguinal hernia bilateral, non-recurrent: Qualifiers:
--- NOTE | 2022-12-07 11:06 | PM.IMPN ---
Progress Note: A&P Assessment and Plan (1) Nontraumatic retroperitoneal hematoma: Code(s): K66.1 - Hemoperitoneum Status: Acute Assessment and Plan: Etiology unclear Abd/Pelvis CTA w/o obvious vascular abnormality on 11/27/2022 Monitor h/h F/u CT shows persistent hematoma (2) Acute on chronic diastolic heart failure: Code(s): I50.33 - Acute on chronic diastolic (congestive) heart failure Status: Acute Assessment and Plan: Patient short of breath, echocardiogram December 03, 2022 shows normal EF, diastolic dysfunction Patient has fluid accumulation, bilateral lower extremity edema, scrotal edema Lasix 80 mg t.i.d. 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, bilateral Code(s): I82.453 - Acute embolism and thrombosis of peroneal vein, bilateral Status: Acute Assessment and Plan: Chronic since 2010 (11/28/2022 reviewed old chart notes and venous dopplers) Inferior vena cava filter placed 2010 prior to tx for 6 months with warfarin Sedentary lifestyle, morbid obesity, smoking are likely contributing factors Thrombophilia due to occult neoplasm is a consideration In the presence of an acute bleed and with IVC filter in place, NO anticoagulation now (4) Hyponatremia: Code(s): E87.1 - Hypo-osmolality and hyponatremia Status: Acute Assessment and Plan: Arpita < 5, c/w prerenal Appreciate nephrology input. We started patient on 3% NS but it appears patient has high water intake causing dilutional hyponatremia. 3% NS discontinued by Nephrology. Patient placed on fluid restriction. Monitor BMP q.6 hours Added sodium chloride 2 g b.i.d. p.o., c/w Lasix 80 mg tid IV Follow-up BMP Na 128 12/04, c/w sodium chloride 2 g tid . p.o Sodium level is improving slowly Sodium 129 on December 06 (5) Anemia due to acute blood loss: Code(s): D62 - Acute posthemorrhagic anemia Status: Acute Assessment and Plan: Relatively stable since admission (6) Alcohol use, unspecified with unspecified alcohol-induced disorder: Code(s): F10.99 - Alcohol use, unspecified with unspecified alcohol-induced disorder Status: Acute Assessment and Plan: [facility] protocol (7) Thyroid nodule: Code(s): E04.1 - Nontoxic single thyroid nodule Status: Acute Assessment and Plan: Discovered on Chest CTA U/s with benign cyst TSH WNL (8) Fatty liver due to alcoholism: Code(s): K70.0 - Alcoholic fatty liver Status: Acute (9) Chronic low back pain with bilateral sciatica: Qualifiers: Back pain laterality: bilateral Qualified Code(s): M54.42 - Lumbago with sciatica, left side; M54.41 - Lumbago with sciatica, right side; G89.29 - Other chronic pain Code(s): M54.41 - Lumbago with sciatica, right side; M54.42 - Lumbago with sciatica, left side; G89.29 - Other chronic pain Status: Acute Assessment and Plan: Severe pain, worse with standing, with bilateral leg pain CTA Abd/Pelvis showed bilateral L5 pars defect and 3 mm anterolisthesis L5 on S1 Suspect spinal stenosis Will need outpatient f/u Patient ambulates without focal weakness or abnormal sensation (10) Inguinal hernia bilateral, non-recurrent: Qualifiers: Obstruction and gangrene presence: without obstruction or gangrene Recurrence: not specified as recurrent Qualified Code(s): K40.20 - Bilateral inguinal hernia, without obstruction or gangrene, not specified as recurrent Code(s): K40.20 - Bilateral inguinal hernia, without obstruction or gangrene, not specified as recurrent Status: Acute Assessment and Plan: Asymptomatic Jyothi
[2022-12-07] MEDS: POTASSIUM CHLORIDE 20 MEQ PACKET (FOR LIQUID) 40 MEQ PO (11:40)
--- NOTE | 2022-12-07 11:40 | PCOTNOTE ---
Patient refused A.M treatment session. Patient stated, I will this afternoon . Will check back this P.M.
[2022-12-07] MEDS: KCL 20MEQ/0.9% SOD CHL 1,000 ML 100 ML IV CONT ×2 (12:19→21:19)
[2022-12-07 13:01] LABS: Albumin 2.6 g/dL (3.8-4.8); Alpha 1 Globulin 0.6 g/dL (0.2-0.3); Alpha 2 Globulin 0.9 g/dL (0.5-0.9); Beta 1 Globulin 0.4 g/dL (0.4-0.6); Gamma Globulin 0.7 g/dL (0.8-1.7); Protein, Total 5.6 g/dL (6.1-8.1)
[2022-12-07 14:30] VITALS: BP 110/72; PULSE 83; RESP 16; TEMP 36.7; O2SAT 99
--- NOTE | 2022-12-07 15:30 | PCOTNOTE ---
Patient requested for OT to come back in the A.M. Patient is having pain and not up to it this afternoon.
[2022-12-07 20:00] VITALS: PULSE 83; RESP 16; O2SAT 99
[2022-12-07] MEDS: TAMSULOSIN HCL 0.4 MG CAPSULE PO (21:16)
[2022-12-07] MEDS: MELATONIN 5 MG TABLET PO (21:16)
[2022-12-07 22:00] VITALS: BP 105/76; PULSE 90; RESP 14; TEMP 36.6; O2SAT 100
[2022-12-08] MEDS: FUROSEMIDE INJ 100 MG/10 ML VIAL 80 MG IV PUSH ×4 (00:32→23:08)
[2022-12-08 06:00] VITALS: BP 108/61; PULSE 83; RESP 14; TEMP 36.2; O2SAT 100
[2022-12-08 06:04] LABS: Hematocrit 29.1 % (42.0-52.0); Hemoglobin 9.5 g/dL (14.0-18.0); Mean Corpuscular HGB Conc 32.6 g/dl (32-36); Mean Platelet Volume 9.4 fl (7.4-10.4); Platelet Count Result 371 k/mm3 (150-375); Red Blood Count 2.97 M/mm3 (4.6-6.20); Red Cell Distribution Width 14.1 % (11.5-14.5); White Blood Count 11.2 K/mm3 (4.5-10.0)
[2022-12-08 06:12] LABS: Albumin Level 3.2 g/dL (3.5-5.1); Anion Gap 3 mmol/L (8-16); Blood Urea Nitrogen 20 mg/dL (9-20); Calcium 8.2 mg/dL (8.4-10.2); Carbon Dioxide 35 mmol/L (22-30); Chloride 94 mmol/L (98-107); Estimated CRCL calculation 109 ml/min; Estimated Glomerular Filt Rate > 60; Glucose 126 mg/dL (65-110); Phosphorus 3.7 mg/dL (2.5-4.5); Potassium 3.4 mmol/L (3.4-5.0); Sodium 132 mmol/L (137-145)
[2022-12-08] MEDS: KCL 20MEQ/0.9% SOD CHL 1,000 ML 100 ML IV CONT (08:45)
[2022-12-08] MEDS: FOLIC ACID 1 MG TABLET PO (08:46)
[2022-12-08] MEDS: THERAPEUTIC MULTIVITAMINS/MINERALS TAB (*BKC) 1 TABLET PO (08:46)
[2022-12-08] MEDS: HYDROcodone/acetaminophen (*CRX) 10-325 MG TABLET 1 TAB PO ×4 (08:46→23:07)
[2022-12-08] MEDS: SODIUM CHLORIDE 1 GM TABLET 2 GM PO ×3 (08:46→16:53)
[2022-12-08] MEDS: THIAMINE HCL 100 MG TABLET PO (08:46)
--- NOTE | 2022-12-08 09:31 | P.PNIM_ITS ---
Progress Note: A&P Assessment and Plan (1) Nontraumatic retroperitoneal hematoma: Code(s): K66.1 - Hemoperitoneum Status: Acute Assessment and Plan: * Etiology unclear * Abd/Pelvis CTA w/o obvious vascular abnormality on 11/27/2022 * Monitor h/h * F/u CT shows persistent hematoma Repeat CT scan of abdomen and pelvis, because patient has worsening right hip pain, hemoglobin is trending down. (2) Acute on chronic diastolic heart failure: Code(s): I50.33 - Acute on chronic diastolic (congestive) heart failure Status: Acute Assessment and Plan: Patient short of breath, echocardiogram December 03, 2022 shows normal EF, diastolic dysfunction Patient has fluid accumulation, bilateral lower extremity edema, scrotal edema Lasix 80 mg t.i.d. 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, bilateral Code(s): I82.453 - Acute embolism and thrombosis of peroneal vein, bilateral Status: Acute Assessment and Plan: * Chronic since 2010 (11/28/2022 reviewed old chart notes and venous dopplers) * Inferior vena cava filter placed 2010 prior to tx for 6 months with warfarin * Sedentary lifestyle, morbid obesity, smoking are likely contributing factors * Thrombophilia due to occult neoplasm is a consideration * In the presence of an acute bleed and with IVC filter in place, NO anticoagulation now (4) Hyponatremia: Code(s): E87.1 - Hypo-osmolality and hyponatremia Status: Acute Assessment and Plan: * Arpita < 5, c/w prerenal * Appreciate nephrology input. We started patient on 3% NS but it appears patient has high water intake causing dilutional hyponatremia. 3% NS discontinued by Nephrology. Patient placed on fluid restriction. * Monitor BMP q.6 hours Added sodium chloride 2 g b.i.d. p.o., c/w Lasix 80 mg tid IV Follow-up BMP Na 128 12/04, c/w sodium chloride 2 g tid . p.o Sodium level is improving slowly Sodium 132 on December 08 (5) Anemia due to acute blood loss: Code(s): D62 - Acute posthemorrhagic anemia Status: Acute Assessment and Plan: * Relatively stable since admission (6) Alcohol use, unspecified with unspecified alcohol-induced disorder: Code(s): F10.99 - Alcohol use, unspecified with unspecified alcohol-induced disorder Status: Acute Assessment and Plan: * DC [facility] protocol (7) Thyroid nodule: Code(s): E04.1 - Nontoxic single thyroid nodule Status: Acute Assessment and Plan: * Discovered on Chest CTA * U/s with benign cyst * TSH WNL (8) Fatty liver due to alcoholism: Code(s): K70.0 - Alcoholic fatty liver Status: Acute (9) Chronic low back pain with bilateral sciatica: Qualifiers: Back pain laterality: bilateral Qualified Code(s): M54.42 - Lumbago with sciatica, left side; M54.41 - Lumbago with sciatica, right side; G89.29 - Other chronic pain Code(s): M54.41 - Lumbago with sciatica, right side; M54.42 - Lumbago with sciatica, left side; G89.29 - Other chronic pain Status: Acute Assessment and Plan: * Severe pain, worse with standing, with bilateral leg pain * CTA Abd/Pelvis showed bilateral L5 pars defect and 3 mm anterolisthesis L5 on S1 * Suspect spinal stenosis * Will need outpatient f/u * Patient ambulates without
--- NOTE | 2022-12-08 10:00 | P.PNNP_ITS ---
Progress Note: A&P Assessment and Plan (1) Hyponatremia: Code(s): E87.1 - Hypo-osmolality and hyponatremia Status: Acute Assessment and Plan: * acute on chronic * worsened on this hospital admission * evaluation to date noted: * serum osmolality the same as calculated * urine osmolality elevated/high * urine electrolytes prerena * SPEP without M-spike * TSH and cortisol okay * No evidence of pulmonary or [employer]MI[employer]ICIAN issues * no actve cancer/malignancy * on narcotics * suspect etiology due to large fluid intake + narcotics + pain + prerenal factors (intravascularly dry despite outward signs of edema) * sodium improving with fluid restriction, diuretics, and salt tablets * fluid restriction for low sodium * diuretics/lasix for edema as well as removing free water * salt tabs helping maintain sodium with diuretic use * hopefully, once he is off lasix, he can come off salt tabs * follow trend of sodium level (2) Nontraumatic retroperitoneal hematoma: Code(s): K66.1 - Hemoperitoneum Status: Acute Assessment and Plan: * as noted by admission imaging * exact etiology no clear despite multiple testing/imaging * follow H/H * continue supportive therapy (3) Deep venous thrombosis (DVT) of both peroneal veins: Qualifiers: Chronicity: chronic Qualified Code(s): I82.553 - 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 Subjective Date/time seen: 12/08/22 10:00 Interval history: Follow-up for acute on chronic hyponatremia. Chart reviewed -- assuming care from Dr. Weathers; sodium levels seems to be improving with current interventions; major complaint at the time of my visit is that of worsening groin pain; however, no acute distress noted. Exam Narrative: General: WD/WN male in NAD Heart: normal S1 and S2; no rub Lungs: clear to auscultation Abdomen: soft, nontender, nondistended, positive bowel sounds Extremities: no cyanosis or clubbing; 2+ edema Skin: warm and dry Objective Data Vital Signs Vital Signs: Vital Signs Temp Pulse Resp BP Pulse Ox O2 Del Method 12/08/22 06:00 97.2 F L 83 14 108/61 100 12/07/22 22:00 97.9 F 90 14 105/76 100 12/07/22 20:00 83 16 99 Room Air 12/07/22 14:30 98.0 F 83 16 110/72 99 Intake/Output Intake/Output: Intake & Output 12/05/22 12/06/22 12/07/22 12/08/22 23:59 23:59 23:59 23:59 Intake Total 7711 017 7431 1120 Output Total 805 1625 1900 1350 Balance 942 -2797 -540 -230 Meds/Results Medications: Active Medications Generic Name Dose Route Start Last Admin Trade Name Freq PRN Reason Stop Dose Admin Acetaminophen 650 mg 11/29/22 09:26 Acetaminophen 325 Mg Tablet PO Q4H PRN Headache
--- NOTE | 2022-12-08 10:00 | PM.PNNEP ---
Progress Note: A&P Assessment and Plan (1) Hyponatremia: Code(s): E87.1 - Hypo-osmolality and hyponatremia Status: Acute Assessment and Plan: acute on chronic worsened on this hospital admission evaluation to date noted: serum osmolality the same as calculated urine osmolality elevated/high urine electrolytes prerena SPEP without M-spike TSH and cortisol okay No evidence of pulmonary or PARER issues no actve cancer/malignancy on narcotics suspect etiology due to large fluid intake + narcotics + pain + prerenal factors (intravascularly dry despite outward signs of edema) sodium improving with fluid restriction, diuretics, and salt tablets fluid restriction for low sodium diuretics/lasix for edema as well as removing free water salt tabs helping maintain sodium with diuretic use hopefully, once he is off lasix, he can come off salt tabs follow trend of sodium level (2) Nontraumatic retroperitoneal hematoma: Code(s): K66.1 - Hemoperitoneum Status: Acute Assessment and Plan: as noted by admission imaging exact etiology no clear despite multiple testing/imaging follow H/H continue supportive therapy (3) Deep venous thrombosis (DVT) of both peroneal veins: Qualifiers: Chronicity: chronic Qualified Code(s): I82.553 - 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 Subjective Date/time seen: 12/08/22 10:00 Interval history: Follow-up for acute on chronic hyponatremia. Chart reviewed -- assuming care from Dr. Weathers; sodium levels seems to be improving with current interventions; major complaint at the time of my visit is that of worsening groin pain; however, no acute distress noted. Exam Narrative: General: WD/WN male in NAD Heart: normal S1 and S2; no rub Lungs: clear to auscultation Abdomen: soft, nontender, nondistended, positive bowel sounds Extremities: no cyanosis or clubbing; 2+ edema Skin: warm and dry Objective Data Vital Signs Vital Signs: Vital Signs Temp Pulse Resp BP Pulse Ox O2 Del Method 12/08/22 06:00 97.2 F L 83 14 108/61 100 12/07/22 22:00 97.9 F 90 14 105/76 100 12/07/22 20:00 83 16 99 Room Air 12/07/22 14:30 98.0 F 83 16 110/72 99 Intake/Output Intake/Output: Intake & Output 12/05/22 12/06/22 12/07/22 12/08/22 23:59 23:59 23:59 23:59 Intake Total 3149 755 4222 1120 Output Total 805 1625 1900 1350 Balance 837 -7496 -540 -365 Meds/Results Medications: Active Medications Generic Name Dose Route Start Last Admin Trade Name Freq PRN Reason Stop Dose Admin Acetaminophen 650 mg 11/29/22 09:26 Acetaminophen 325 Mg Tablet PO Q4H PRN Headache Hydrocodone Bitart/Acetaminophen 1 tab 12/08/22 10:14 Hydrocodone/Acetaminophen (*Crx) 10-325 Mg Tablet PO Q4HR PRN Pain Rated 7-10 Folic Acid 1 mg 11/30/22 09:00 12/08/22 08:46 Folic Acid 1 Mg Tablet PO 1 mg DAILY ALFRED Administration Furosemide 80 mg 12/06/22 16:00 12/08/22 08:48 Furosemide Inj 100 Mg/10 Ml Vial IV PUSH 80 mg Q8H ALFRED Administration Melatonin 5 mg 11/27/22 23:55 12/07/22 21:16 Melatonin 5 Mg Tablet PO 5 mg HS ALFRED Administration Multivitamins/Calcium 1 tablet 11/30/22 09:00 12/08/22 08:46 Therapeutic Multivitamins/Minerals Tab (*Bkc) PO 1 tablet QAM ALFRED Administration Naloxone HCl 0.1 mg 11/28/22 13:09 Naloxone Hcl 0.4 Mg/Ml Vial IV PUSH Q5MIN PRN Opioid Reversal Ondansetron H
--- NOTE | 2022-12-08 11:19 | PCPTNOTE ---
Patient declined PT at this time stating he was waiting to go for CT scan. Patient requests PT return later.
[2022-12-08] MEDS: LORazepam INJ (*CRX) 2 MG/ML VIAL 0.5 MG IV PUSH (11:58)
--- NOTE | 2022-12-08 13:13 | PCOTNOTE ---
Patient refused treatment this session. Patient stated he has a CT scan and promised PT to see him later. Patient declined working on ADLs prior to CT scan.
[2022-12-08 14:51] VITALS: BP 125/89; PULSE 94; RESP 18; TEMP 36.4; O2SAT 99
[2022-12-08 20:00] VITALS: PULSE 94; RESP 18; O2SAT 99
[2022-12-08 20:58] VITALS: BP 117/87; PULSE 87; RESP 16; TEMP 36.1; O2SAT 98
[2022-12-08] MEDS: TAMSULOSIN HCL 0.4 MG CAPSULE PO (21:06)
[2022-12-08] MEDS: MELATONIN 5 MG TABLET PO (21:06)
[2022-12-09] VITALS (8 sets, daily range): BP systolic 104–129; BP diastolic 76–87; PULSE 84–97; RESP 16–20; TEMP 36.1; O2SAT 73–100
[2022-12-09 07:58] LABS: Alanine Aminotransferase 27 U/L (6-50); Albumin Level 3.2 g/dL (3.5-5.1); Alkaline Phosphatase 115 U/L (38-126); Anion Gap 3 mmol/L (8-16); Aspartate Amino Transferase 45 U/L (17-59); Bilirubin,Total 1.4 mg/dL (0.2-1.3); Blood Urea Nitrogen 19 mg/dL (9-20); Calcium 8.2 mg/dL (8.4-10.2); Carbon Dioxide 36 mmol/L (22-30); Chloride 92 mmol/L (98-107); Estimated CRCL calculation 109 ml/min; Estimated Glomerular Filt Rate > 60; Glucose 133 mg/dL (65-110); Potassium 2.9 mmol/L (3.4-5.0); Sodium 131 mmol/L (137-145)
--- NOTE | 2022-12-09 08:40 | PCOTNOTE ---
Attempted to see Patient for OT treatment session. Patient refused, stating he wants discharged from OT services but will continue to perform PT services only. Will update OTR/L with request to have discharged.
[2022-12-09] MEDS: THERAPEUTIC MULTIVITAMINS/MINERALS TAB (*BKC) 1 TABLET PO (08:54)
[2022-12-09] MEDS: HYDROcodone/acetaminophen (*CRX) 10-325 MG TABLET 1 TAB PO ×3 (08:54→20:37)
[2022-12-09] MEDS: THIAMINE HCL 100 MG TABLET PO (08:55)
[2022-12-09] MEDS: FOLIC ACID 1 MG TABLET PO (08:55)
[2022-12-09] MEDS: SODIUM CHLORIDE 1 GM TABLET 2 GM PO ×3 (08:55→16:11)
[2022-12-09] MEDS: FUROSEMIDE INJ 100 MG/10 ML VIAL 80 MG IV PUSH ×3 (09:03→23:20)
--- NOTE | 2022-12-09 11:04 | PM.IMPN ---
Progress Note: A&P Assessment and Plan (1) Nontraumatic retroperitoneal hematoma: Code(s): K66.1 - Hemoperitoneum Status: Acute Assessment and Plan: Etiology unclear Abd/Pelvis CTA w/o obvious vascular abnormality on 11/27/2022 Monitor h/h F/u CT shows persistent hematoma Repeat CT scan of abdomen and pelvis, because patient has worsening right hip pain, hemoglobin is trending down. (2) Acute on chronic diastolic heart failure: Code(s): I50.33 - Acute on chronic diastolic (congestive) heart failure Status: Acute Assessment and Plan: Patient short of breath, echocardiogram December 03, 2022 shows normal EF, diastolic dysfunction Patient has fluid accumulation, bilateral lower extremity edema, scrotal edema Lasix 80 mg t.i.d. 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, bilateral Code(s): I82.453 - Acute embolism and thrombosis of peroneal vein, bilateral Status: Acute Assessment and Plan: Chronic since 2010 (11/28/2022 reviewed old chart notes and venous dopplers) Inferior vena cava filter placed 2010 prior to tx for 6 months with warfarin Sedentary lifestyle, morbid obesity, smoking are likely contributing factors Thrombophilia due to occult neoplasm is a consideration In the presence of an acute bleed and with IVC filter in place, NO anticoagulation now (4) Hyponatremia: Code(s): E87.1 - Hypo-osmolality and hyponatremia Status: Acute Assessment and Plan: Arpita < 5, c/w prerenal Appreciate nephrology input. We started patient on 3% NS but it appears patient has high water intake causing dilutional hyponatremia. 3% NS discontinued by Nephrology. Patient placed on fluid restriction. Monitor BMP q.6 hours Added sodium chloride 2 g b.i.d. p.o., c/w Lasix 80 mg tid IV Follow-up BMP Na 128 12/04, c/w sodium chloride 2 g tid . p.o Sodium level is improving slowly Sodium 132 on December 08 (5) Anemia due to acute blood loss: Code(s): D62 - Acute posthemorrhagic anemia Status: Acute Assessment and Plan: Relatively stable since admission (6) Alcohol use, unspecified with unspecified alcohol-induced disorder: Code(s): F10.99 - Alcohol use, unspecified with unspecified alcohol-induced disorder Status: Acute Assessment and Plan: DC [facility] protocol (7) Thyroid nodule: Code(s): E04.1 - Nontoxic single thyroid nodule Status: Acute Assessment and Plan: Discovered on Chest CTA U/s with benign cyst TSH WNL (8) Fatty liver due to alcoholism: Code(s): K70.0 - Alcoholic fatty liver Status: Acute (9) Chronic low back pain with bilateral sciatica: Qualifiers: Back pain laterality: bilateral Qualified Code(s): M54.42 - Lumbago with sciatica, left side; M54.41 - Lumbago with sciatica, right side; G89.29 - Other chronic pain Code(s): M54.41 - Lumbago with sciatica, right side; M54.42 - Lumbago with sciatica, left side; G89.29 - Other chronic pain Status: Acute Assessment and Plan: Severe pain, worse with standing, with bilateral leg pain CTA Abd/Pelvis showed bilateral L5 pars defect and 3 mm anterolisthesis L5 on S1 Suspect spinal stenosis Will need outpatient f/u Patient ambulates without focal weakness or abnormal sensation (10) Inguinal hernia bilateral, non-recurrent: Qualifiers: Obstruction and gangrene presence: without obstruction or gangrene Recurrence: not specified as recurrent Qualified Code(s): K40.20 - Bilateral inguinal hernia, without obstruction or gangrene, not specified as recurrent Code(s): K40.20 - Bilateral inguinal hernia, without obstru
--- NOTE | 2022-12-09 13:15 | P.PNNP_ITS ---
Progress Note: A&P Assessment and Plan (1) Hyponatremia: Code(s): E87.1 - Hypo-osmolality and hyponatremia Status: Acute Assessment and Plan: * acute on chronic * worsened on this hospital admission * evaluation to date noted: * serum osmolality the same as calculated * urine osmolality elevated/high * urine electrolytes prerena * SPEP without M-spike * TSH and cortisol okay * No evidence of pulmonary or SOCIOLOGY TEACHER issues * no actve cancer/malignancy * on narcotics * suspect etiology due to large fluid/free water intake + narcotics + pain + prerenal factors (intravascularly dry despite outward signs of edema) * sodium improving with fluid restriction, diuretics, and salt tablets * fluid restriction for low sodium * diuretics/lasix for edema as well as removing free water * salt tabs helping maintain sodium with diuretic use * hopefully, once he is off lasix, he can come off salt tabs * follow trend of sodium level (2) Nontraumatic retroperitoneal hematoma: Code(s): K66.1 - Hemoperitoneum Status: Acute Assessment and Plan: * as noted by admission imaging * exact etiology no clear despite multiple testing/imaging * follow H/H * continue supportive therapy (3) Deep venous thrombosis (DVT) of both peroneal veins: Qualifiers: Chronicity: chronic Qualified Code(s): I82.553 - 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 Subjective Date/time seen: 12/09/22 13:15 Interval history: Follow-up for acute on chronic hyponatremia. Sodium relatively stable at this time by AM blood work; remains in negative fluid balance by I/Os but still with significant lower extremity edema/swelling; does not like fluid restriction; no other acute issues/events overnight or earlier this morning. Exam Narrative: General: WD/WN male in NAD Heart: normal S1 and S2; no rub Lungs: clear to auscultation Abdomen: soft, nontender, nondistended, positive bowel sounds Extremities: no cyanosis or clubbing; 2+ edema Skin: warm and intact Objective Data Vital Signs Vital Signs: Vital Signs Temp Pulse Resp BP Pulse Ox O2 Del Method O2 Flow Rate 12/09/22 13:14 96.9 F L 97 20 129/87 100 12/09/22 11:50 81 L Room Air 12/09/22 09:45 95 Nasal Cannula 3 12/09/22 09:40 73 L Room Air 12/09/22 08:55 Room Air 12/09/22 05:00 97 F L 84 16 107/76 100 12/08/22 20:58 97 F L 87 16 117/87 98 12/08/22 20:00 94 18 99 Room Air Intake/Output Intake/Output: Intake & Output 12/06/22 12/07/22 12/08/22 12/09/22 23:59 23:59 23:59 23:59 Intake Total 150 1360 2480 1119 Output Total 1625 1900 2826 1650 [facility] -1475 [phone] Meds/Results Medications: Active Medications
--- NOTE | 2022-12-09 13:15 | PM.PNNEP ---
Progress Note: A&P Assessment and Plan (1) Hyponatremia: Code(s): E87.1 - Hypo-osmolality and hyponatremia Status: Acute Assessment and Plan: acute on chronic worsened on this hospital admission evaluation to date noted: serum osmolality the same as calculated urine osmolality elevated/high urine electrolytes prerena SPEP without M-spike TSH and cortisol okay No evidence of pulmonary or NETWORK SYSTEMS OPERATOR issues no actve cancer/malignancy on narcotics suspect etiology due to large fluid/free water intake + narcotics + pain + prerenal factors (intravascularly dry despite outward signs of edema) sodium improving with fluid restriction, diuretics, and salt tablets fluid restriction for low sodium diuretics/lasix for edema as well as removing free water salt tabs helping maintain sodium with diuretic use hopefully, once he is off lasix, he can come off salt tabs follow trend of sodium level (2) Nontraumatic retroperitoneal hematoma: Code(s): K66.1 - Hemoperitoneum Status: Acute Assessment and Plan: as noted by admission imaging exact etiology no clear despite multiple testing/imaging follow H/H continue supportive therapy (3) Deep venous thrombosis (DVT) of both peroneal veins: Qualifiers: Chronicity: chronic Qualified Code(s): I82.553 - 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 Subjective Date/time seen: 12/09/22 13:15 Interval history: Follow-up for acute on chronic hyponatremia. Sodium relatively stable at this time by AM blood work; remains in negative fluid balance by I/Os but still with significant lower extremity edema/swelling; does not like fluid restriction; no other acute issues/events overnight or earlier this morning. Exam Narrative: General: WD/WN male in NAD Heart: normal S1 and S2; no rub Lungs: clear to auscultation Abdomen: soft, nontender, nondistended, positive bowel sounds Extremities: no cyanosis or clubbing; 2+ edema Skin: warm and intact Objective Data Vital Signs Vital Signs: Vital Signs Temp Pulse Resp BP Pulse Ox O2 Del Method O2 Flow Rate 12/09/22 13:14 96.9 F L 97 20 129/87 100 12/09/22 11:50 81 L Room Air 12/09/22 09:45 95 Nasal Cannula 3 12/09/22 09:40 73 L Room Air 12/09/22 08:55 Room Air 12/09/22 05:00 97 F L 84 16 107/76 100 12/08/22 20:58 97 F L 87 16 117/87 98 12/08/22 20:00 94 18 99 Room Air Intake/Output Intake/Output: Intake & Output 12/06/22 12/07/22 12/08/22 12/09/22 23:59 23:59 23:59 23:59 Intake Total 150 1360 2480 1119 Output Total 1625 1900 2825 1650 [facility] -[phone] [phone] Meds/Results Medications: Active Medications Generic Name Dose Route Start Last Admin Trade Name Rhina PRN Reason Stop Dose Admin Acetaminophen 650 mg 11/29/22 09:26 Acetaminophen 325 Mg Tablet PO Q4H PRN Headache Hydrocodone Bitart/Acetaminophen 1 tab 12/08/22 10:14 12/09/22 12:55 Hydrocodone/Acetaminophen (*Crx) 10-325 Mg Tablet PO 1 tab Q4HR PRN Administration Pain Rated 7-10 Folic Acid 1 mg 11/30/22 09:00 12/09/22 08:55 Folic Acid 1 Mg Tablet PO 1 mg DAILY ALFRED Administration Furosemide 80 mg 12/06/22 16:00 12/09/22 16:10 Furosemide Inj 100 Mg/10 Ml Vial IV PUSH 80 mg Q8H ALFRED Administration Melatonin 5 mg 11/27/22 23:55 12/08/22 21:06 Melatonin 5 Mg Tablet PO 5 mg HS ALFRED Administration Multivitamins/Calcium 1 tablet
[2022-12-09] MEDS: TAMSULOSIN HCL 0.4 MG CAPSULE PO (20:37)
[2022-12-09] MEDS: MELATONIN 5 MG TABLET PO (20:38)
[2022-12-10 06:44] VITALS: BP 108/65; PULSE 75; RESP 14; TEMP 36.6; O2SAT 100
[2022-12-10 07:26] LABS: Basophils Absolute Auto 0.1 K/mm3 (0.0-0.1); Basophils Percent Auto 0.9 % (0.2-1.2); Eosinophils Absolute Auto 0.3 K/mm3 (0-0.3); Hematocrit 30.6 % (42.0-52.0); Hemoglobin 9.8 g/dL (14.0-18.0); Immature Granulocyte Absolute 0.07 K/mm3 (0.00-0.031); Immature Granulocyte Percent A 0.7 % (0-0.5); Lymphocytes Absolute Auto 1.24 K/mm3 (0.9-3.2); Lymphocytes Percent Auto 12.2 % (18.3-44.2); Mean Corpuscular Hemoglobin 31.2 pg (26-34); Mean Corpuscular Volume 97.5 fl (80-100); Mean Platelet Volume 9.2 fl (7.4-10.4); Monocytes Absolute Auto 0.8 K/mm3 (0.1-0.6); Monocytes Percent Auto 7.4 % (2.6-8.5); Neutrophils Absolute Auto 7.7 K/mm3 (1.3-6.7); Neutrophils Percent Auto 75.8 % (45.5-73.1); Platelet Count Result 367 k/mm3 (150-375); Red Blood Count 3.14 M/mm3 (4.6-6.20); Red Cell Distribution Width 14.4 % (11.5-14.5); White Blood Count 10.2 K/mm3 (4.5-10.0)
[2022-12-10 07:47] LABS: Blood Urea Nitrogen 18 mg/dL (9-20); Calcium 8.3 mg/dL (8.4-10.2); Carbon Dioxide > 40 mmol/L (22-30); Chloride 91 mmol/L (98-107); Estimated CRCL calculation 97 ml/min; Estimated Glomerular Filt Rate > 60; Glucose 126 mg/dL (65-110); Potassium 2.8 mmol/L (3.4-5.0); Sodium 133 mmol/L (137-145)
[2022-12-10] MEDS: FUROSEMIDE INJ 100 MG/10 ML VIAL 80 MG IV PUSH (08:32)
[2022-12-10] MEDS: HYDROcodone/acetaminophen (*CRX) 10-325 MG TABLET 1 TAB PO ×3 (08:32→20:33)
[2022-12-10] MEDS: THIAMINE HCL 100 MG TABLET PO (08:32)
[2022-12-10] MEDS: THERAPEUTIC MULTIVITAMINS/MINERALS TAB (*BKC) 1 TABLET PO (08:32)
[2022-12-10] MEDS: SODIUM CHLORIDE 1 GM TABLET 2 GM PO ×3 (08:32→16:18)
[2022-12-10] MEDS: FOLIC ACID 1 MG TABLET PO (08:32)
[2022-12-10] MEDS: POTASSIUM CHLORIDE 20 MEQ ER TABLET PO (08:32)
[2022-12-10] MEDS: KCL 40 MEQ/0.9% SOD CHL 1,000 ML 100 ML IV CONT ×2 (08:33→20:30)
[2022-12-10] MEDS: polyethylene glycoL 3350 17 GM POWD.PACK PO (10:03)
--- NOTE | 2022-12-10 13:05 | P.PNNP_ITS ---
Progress Note: A&P Assessment and Plan (1) Hyponatremia: Code(s): E87.1 - Hypo-osmolality and hyponatremia Status: Acute Assessment and Plan: * relatively stable at this time * acute on chronic * worsened on this hospital admission * evaluation to date noted: * serum osmolality the same as calculated * urine osmolality elevated/high * urine electrolytes prerenal * SPEP without M-spike * TSH and cortisol okay * no evidence of pulmonary or MICROSCOPIST issues * no actve cancer/malignancy * on narcotics * suspect etiology due to large fluid/free water intake + narcotics + pain + prerenal factors (intravascularly dry despite outward signs of edema) * sodium relative stable with fluid restriction, diuretics, and salt tablets * fluid restriction for low sodium * diuretics/lasix for edema as well as removing free water * salt tabs helping maintain sodium with diuretic use * hopefully, once he is off lasix, he can come off salt tabs * will transition to oral diuretic therapy * follow trend of sodium level (2) Nontraumatic retroperitoneal hematoma: Code(s): K66.1 - Hemoperitoneum Status: Acute Assessment and Plan: * as noted by admission imaging * exact etiology no clear despite multiple testing/imaging * follow H/H * continue supportive therapy (3) Deep venous thrombosis (DVT) of both peroneal veins: Qualifiers: Chronicity: chronic Qualified Code(s): I82.553 - 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 Subjective Date/time seen: 12/10/22 13:05 Interval history: Follow-up for acute on chronic hyponatremia. Sodium remains relatively stable at this time; edema/swelling a bit better but we may be reaching a limit with regard to IV diuresis (rising CO2, hypokalemia...etc); no other acute complaints voiced at this time; no apparent distress noted. Exam Narrative: General: WD/WN male in NAD Heart: normal S1 and S2; no rub Lungs: clear to auscultation Abdomen: soft, nontender, nondistended, positive bowel sounds Extremities: no cyanosis or clubbing; 1 - 2+ edema Skin: no rash Objective Data Vital Signs Vital Signs: Vital Signs Temp Pulse Resp BP Pulse Ox O2 Del Method 12/10/22 13:00 97.7 F 88 20 111/36 L 99 12/10/22 08:32 Room Air 12/10/22 06:44 97.9 F 75 14 108/65 100 12/09/22 20:38 97 F L 95 18 104/81 100 12/09/22 20:00 97 20 100 Room Air Intake/Output Intake/Output: Intake & Output 12/07/22 12/08/22 12/09/22 12/10/22 23:59 23:59 23:59 23:59 Intake Total 1360 2480 1269 462 Output Total 1900 2825 1850 1925 [facility] -[phone] Meds/Results Medications: Active Medications Generic Name Dose Route Start Last Admin Trade Name
--- NOTE | 2022-12-10 13:05 | PM.PNNEP ---
Progress Note: A&P Assessment and Plan (1) Hyponatremia: Code(s): E87.1 - Hypo-osmolality and hyponatremia Status: Acute Assessment and Plan: relatively stable at this time acute on chronic worsened on this hospital admission evaluation to date noted: serum osmolality the same as calculated urine osmolality elevated/high urine electrolytes prerenal SPEP without M-spike TSH and cortisol okay no evidence of pulmonary or MEDICAL EXAMINER issues no actve cancer/malignancy on narcotics suspect etiology due to large fluid/free water intake + narcotics + pain + prerenal factors (intravascularly dry despite outward signs of edema) sodium relative stable with fluid restriction, diuretics, and salt tablets fluid restriction for low sodium diuretics/lasix for edema as well as removing free water salt tabs helping maintain sodium with diuretic use hopefully, once he is off lasix, he can come off salt tabs will transition to oral diuretic therapy follow trend of sodium level (2) Nontraumatic retroperitoneal hematoma: Code(s): K66.1 - Hemoperitoneum Status: Acute Assessment and Plan: as noted by admission imaging exact etiology no clear despite multiple testing/imaging follow H/H continue supportive therapy (3) Deep venous thrombosis (DVT) of both peroneal veins: Qualifiers: Chronicity: chronic Qualified Code(s): I82.553 - 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 Subjective Date/time seen: 12/10/22 13:05 Interval history: Follow-up for acute on chronic hyponatremia. Sodium remains relatively stable at this time; edema/swelling a bit better but we may be reaching a limit with regard to IV diuresis (rising CO2, hypokalemia...etc); no other acute complaints voiced at this time; no apparent distress noted. Exam Narrative: General: WD/WN male in NAD Heart: normal S1 and S2; no rub Lungs: clear to auscultation Abdomen: soft, nontender, nondistended, positive bowel sounds Extremities: no cyanosis or clubbing; 1 - 2+ edema Skin: no rash Objective Data Vital Signs Vital Signs: Vital Signs Temp Pulse Resp BP Pulse Ox O2 Del Method 12/10/22 13:00 97.7 F 88 20 111/36 L 99 12/10/22 08:32 Room Air 12/10/22 06:44 97.9 F 75 14 108/65 100 12/09/22 20:38 97 F L 95 18 104/81 100 12/09/22 20:00 97 20 100 Room Air Intake/Output Intake/Output: Intake & Output 12/07/22 12/08/22 12/09/22 12/10/22 23:59 23:59 23:59 23:59 Intake Total 1360 2480 1269 462 Output Total 1900 2826 1850 1924 [place] -[phone] Meds/Results Medications: Active Medications Generic Name Dose Route Start Last Admin Trade Name Freq PRN Reason Stop Dose Admin Acetaminophen 650 mg 11/29/22 09:26 Acetaminophen 325 Mg Tablet PO Q4H PRN Headache Hydrocodone Bitart/Acetaminophen 1 tab 12/08/22 10:14 12/10/22 08:32 Hydrocodone/Acetaminophen (*Crx) 10-325 Mg Tablet PO 1 tab Q4HR PRN Administration Pain Rated 7-10 Folic Acid 1 mg 11/30/22 09:00 12/10/22 08:32 Folic Acid 1 Mg Tablet PO 1 mg DAILY ALFRED Administration Furosemide 80 mg 12/06/22 16:00 12/10/22 08:32 Furosemide Inj 100 Mg/10 Ml Vial IV PUSH 80 mg Q8H ALFRED Administration Potassium Chloride/Sodium Chloride 1,000 mls @ 100 mls/hr 12/10/22 07:50 12/10/22 08:33 Kcl 40 Meq/Ns IV CONT 100 mls/hr .Q10H ALFRED Administration Melatonin 5 mg 11/27/22 23:55 12/09/22 20:38 M
[2022-12-10 14:00] VITALS: BP 111/36; PULSE 88; RESP 20; TEMP 36.5; O2SAT 99
[2022-12-10 16:04] LABS: Potassium 2.9 mmol/L (3.4-5.0)
[2022-12-10] MEDS: POTASSIUM CHLORIDE 20 MEQ ER TABLET 40 MEQ PO (16:19)
[2022-12-10] MEDS: FUROSEMIDE 80 MG TABLET PO (17:22)
--- NOTE | 2022-12-10 17:54 | PC.NURSE ---
Pt has been compliant with plan of care today. Pt has had low potassium. Pt treated with IV potassium and PO potassium. Pt tolerating well. Pt ambulates with walker to the bathroom. Pt eager to leave and expresses wishes to nursing staff and provider. Will continue to monitor pt.
[2022-12-10] MEDS: MELATONIN 5 MG TABLET PO (20:32)
[2022-12-10] MEDS: TAMSULOSIN HCL 0.4 MG CAPSULE PO (20:32)
[2022-12-10 20:34] VITALS: BP 128/74; PULSE 81; RESP 16; TEMP 36.2; O2SAT 98
[2022-12-10 22:22] LABS: Potassium 3.2 mmol/L (3.4-5.0)
[2022-12-11 06:51] VITALS: BP 110/65; PULSE 81; RESP 16; TEMP 36.1; O2SAT 99
[2022-12-11 07:03] LABS: Alanine Aminotransferase 25 U/L (6-50); Albumin Level 3.1 g/dL (3.5-5.1); Alkaline Phosphatase 108 U/L (38-126); Anion Gap 2 mmol/L (8-16); Aspartate Amino Transferase 46 U/L (17-59); Bilirubin,Total 1.2 mg/dL (0.2-1.3); Blood Urea Nitrogen 17 mg/dL (9-20); Calcium 8.2 mg/dL (8.4-10.2); Carbon Dioxide 38 mmol/L (22-30); Chloride 95 mmol/L (98-107); Estimated CRCL calculation 109 ml/min; Estimated Glomerular Filt Rate > 60; Glucose 117 mg/dL (65-110); Magnesium 2.1 mg/dL (1.6-2.3); Potassium 3.1 mmol/L (3.4-5.0); Sodium 135 mmol/L (137-145)
[2022-12-11] MEDS: SODIUM CHLORIDE 1 GM TABLET 2 GM PO ×2 (09:13→13:27)
[2022-12-11] MEDS: FOLIC ACID 1 MG TABLET PO (09:14)
[2022-12-11] MEDS: THERAPEUTIC MULTIVITAMINS/MINERALS TAB (*BKC) 1 TABLET PO (09:14)
[2022-12-11] MEDS: POTASSIUM CHLORIDE 20 MEQ ER TABLET 40 MEQ PO ×2 (09:14→10:25)
[2022-12-11] MEDS: THIAMINE HCL 100 MG TABLET PO (09:14)
--- NOTE | 2022-12-11 09:44 | PCPTNOTE ---
Patient states he would like to go home. Patient states he would feel better and be more active at home. Patient states he no longer requires PT services. Patient met transfer, bed mobility, and gait goals. PT will plan to discontinue PT services.
[2022-12-11] MEDS: FUROSEMIDE 80 MG TABLET PO (10:25)
--- NOTE | 2022-12-11 12:08 | PM.CNGS ---
Assessment and Plan Assessment and plan (1) Nontraumatic retroperitoneal hematoma: Code(s): K66.1 - Hemoperitoneum Status: Acute Assessment and Plan: unknown etiology, has been stable over last 2 wks, no s/s cont bleeding, no acute surgical intervention required, ok to dc from surgical standpoint, d/w pt and need to return emergently if symptoms redevelop/worsen History of Present Illness Consult details Consult date: 12/11/22 Reason for consult: other (Right retroperitoneal hematoma) Requesting physician: Vidal Blanc MD Narrative: The patient is a 62-year-old male that initially presented to the emergency room on 11/27 complaining of right flank pain with radiation to the right lower quadrant of his abdomen. Workup, including imaging, was significant for a large right retroperitoneal hematoma. The patient has since been admitted and reports the discomfort in the right flank, right lower quadrant has improved but has not gone away. Of note, the patient has had multiple additional imaging studies including CTA that does not show any active bleeding. The hematoma as of yesterday looks to be essentially unchanged. The patient has had multiple H&H in that have been stable. The patient has been hemodynamically stable and not required any blood products. General surgery consulted prior to discharge at family and patient request to ensure no further intervention needs to be undertaken. The patient is not on any anticoagulation denies any trauma to the area. 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 Family History Family History Mother Atrial fibrillation Social History Social History Social History: The patient is and has no biological children. He has a stepdaughter who is a nurse practitioner. The patient retired from [employer]. He denies any alcohol marijuana or illicit drugs. His is the durable power attorney law clerk for healthcare. Code status full code Smoking status: Current every day smoker Tobacco type: cigarettes Alcohol intake: current Lack of Transportation: No Lack of Food: Never True Current Housing: I Have Housing Concerned About Future Housing: No Difficulty Paying Gas/Electric Bills: YES Difficulty Paying for Meds: YES Currently Unemployed: No Education: High School Diploma/GED Difficulty w/ Childcare or Family Care: No Gender identity (if verbalized by the patient): Male Sexual Orientation (if Verbalized by the Patient): Straight or Heterosexual Spiritual care concerns: No Meds Home Medications and Allergies Home Medications Medication Instructions Recorded Confirmed Type No Home Medications 11/27/22 11/27/22 History Allergies Allergy/AdvReac Type Severity Reaction Status Date / Time No Known Allergies Allergy Verified 02/21/20 13:11 Vital Signs Vital Signs - 24 hr 12/10/22 14:00 12/10/22 20:00 12/10/22 20:34 Temperature 36.5 C 36.2 C L Pulse Rate 88 81 Respiratory Rate 20 16 Blood Pressure 111/36 L 128/74 Pulse Oximetry 99 98 Oxygen Delivery Room Air 12/11/22 06:51 12/11/22 09:14 Temperature 36.1 C L Pulse Rate 81 Respiratory Rate 16 Blood Pressure 110/65 Pulse Oximetry 99 Oxygen Delivery Room Air Exam Const: General: cooperative, comfortable, no acute distress and overweight HENMT: Head: normal to inspection, normocephalic and atraumatic Eyes: Gene
[2022-12-11] MEDS: HYDROcodone/acetaminophen (*CRX) 10-325 MG TABLET 1 TAB PO (14:34)
--- NOTE | 2022-12-11 18:07 | PC.NURSE ---
Pt has discharged home with . Pt participated and contributed in plan of care. Pt care provider was changed due to pt concerns. Pt voiced concerns and they were relayed to charge nurse and hospitalist RN. Pt labs were improved today. Pt and were educated on discharge instructions. Pt and verbalized understanding. Pt was wheeled down to car. Pt ambulated to car and was assisted in by . Pt tolerated ambulation well. Pt was monitored for any changes in status while here.
--- NOTE | 2022-12-29 12:51 | PM.DS ---
DS: Admitting Diagnosis Discharge Date 12/11/22 Admitting Diagnosis hemoperitoneum DS: Discharge Diagnosis Discharge Diagnosis (1) Nontraumatic retroperitoneal hematoma: Code(s): K66.1 - Hemoperitoneum Status: Acute Assessment and Plan: Etiology unclear Abd/Pelvis CTA w/o obvious vascular abnormality on 11/27/2022 Monitor h/h F/u CT shows persistent hematoma Repeat CT scan of abdomen and pelvis, because patient has worsening right hip pain, hemoglobin is trending down. (2) Acute on chronic diastolic heart failure: Code(s): I50.33 - Acute on chronic diastolic (congestive) heart failure Status: Acute Assessment and Plan: Patient short of breath, echocardiogram December 03, 2022 shows normal EF, diastolic dysfunction Patient has fluid accumulation, bilateral lower extremity edema, scrotal edema Lasix 80 mg t.i.d. 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, bilateral Code(s): I82.453 - Acute embolism and thrombosis of peroneal vein, bilateral Status: Acute Assessment and Plan: Chronic since 2010 (11/28/2022 reviewed old chart notes and venous dopplers) Inferior vena cava filter placed 2010 prior to tx for 6 months with warfarin Sedentary lifestyle, morbid obesity, smoking are likely contributing factors Thrombophilia due to occult neoplasm is a consideration In the presence of an acute bleed and with IVC filter in place, NO anticoagulation now (4) Hyponatremia: Code(s): E87.1 - Hypo-osmolality and hyponatremia Status: Acute Assessment and Plan: Arpita < 5, c/w prerenal Appreciate nephrology input. We started patient on 3% NS but it appears patient has high water intake causing dilutional hyponatremia. 3% NS discontinued by Nephrology. Patient placed on fluid restriction. Monitor BMP q.6 hours Added sodium chloride 2 g b.i.d. p.o., c/w Lasix 80 mg tid IV Follow-up BMP Na 128 12/04, c/w sodium chloride 2 g tid . p.o Sodium level is improving slowly Sodium 132 on December 08 (5) Anemia due to acute blood loss: Code(s): D62 - Acute posthemorrhagic anemia Status: Acute Assessment and Plan: Relatively stable since admission (6) Alcohol use, unspecified with unspecified alcohol-induced disorder: Code(s): F10.99 - Alcohol use, unspecified with unspecified alcohol-induced disorder Status: Acute Assessment and Plan: DC cIAK protocol (7) Thyroid nodule: Code(s): E04.1 - Nontoxic single thyroid nodule Status: Acute Assessment and Plan: Discovered on Chest CTA U/s with benign cyst TSH WNL (8) Fatty liver due to alcoholism: Code(s): K70.0 - Alcoholic fatty liver Status: Acute (9) Chronic low back pain with bilateral sciatica: Qualifiers: Back pain laterality: bilateral Qualified Code(s): M54.42 - Lumbago with sciatica, left side; M54.41 - Lumbago with sciatica, right side; G89.29 - Other chronic pain Code(s): M54.41 - Lumbago with sciatica, right side; M54.42 - Lumbago with sciatica, left side; G89.29 - Other chronic pain Status: Acute Assessment and Plan: Severe pain, worse with standing, with bilateral leg pain CTA Abd/Pelvis showed bilateral L5 pars defect and 3 mm anterolisthesis L5 on S1 Suspect spinal stenosis Will need outpatient f/u Patient ambulates without focal weakness or abnormal sensation (10) Inguinal hernia bilateral, non-recurrent: Qualifiers: Obstruction and gangrene presence: without obstruction or gangrene Recurrence: not specified as recurrent Qualified Code(s): K40.20 - Bilateral inguinal hernia, without obstruction or gangren
== END 2022-12-11 14:50 | disposition home or self-care (01) | DRG 253 ==
LOC: ANHED 18:07 → ANH3MEDSUR 18:34
PROVIDERS: Emergency Medicine; Hospitalist; Internal Medicine; Internal Medicine Nephrology; Nurse Practitioner; Admitting Provider Chiropractor; Emergency Provider Physician Assistant; Visit Provider Hospitalist
DX: K66.1 Hemoperitoneum (principal); I50.33 Acute on chronic diastolic (congestive) heart failure; E87.1 Hypo-osmolality and hyponatremia; I82.553 Chronic embolism and thrombosis of peroneal vein, bilateral; K70.0 Alcoholic fatty liver; D63.8 Anemia in other chronic diseases classified elsewhere; D62 Acute posthemorrhagic anemia; E86.0 Dehydration; E04.1 Nontoxic single thyroid nodule; F10.90 Alcohol use, unspecified, uncomplicated; F17.210 Nicotine dependence, cigarettes, uncomplicated; G89.29 Other chronic pain; I73.9 Peripheral vascular disease, unspecified; K40.20 Bilateral inguinal hernia, without obstruction or gangrene, not specified as recurrent; M54.41 Lumbago with sciatica, right side; M54.42 Lumbago with sciatica, left side; N50.89 Other specified disorders of the male genital organs; Z86.711 Personal history of pulmonary embolism; Z95.828 Presence of other vascular implants and grafts
CPT/HCPCS: 36415; 71250; 71275; 73502; 74176; 75635; 76536; 76705; 80048; 80053; 80061; 80069; 81001; 82533; 82570; 82728; 83036; 83540; 83550; 83690; 83735; 83930; 83935; 84132; 84155; 84156; 84165; 84295; 84300; 84439; 84443; 84480; 84540; 85014; 85018; 85025; 85027; 85055; 85610; 85730; 86140; 87086; 93005; 93306; 93970; 96361; 96374; 96375; 97110; 97116; 97161; 97166; 97530; 97535; 99285; A9270; G0378; J1940; J2060; J2270; J2405; J3010; J3480; J7030; J7131; Q9967

== ENCOUNTER 2023-03-19 05:20 | Day surgery (SDC) | payer OTHER, SELFPAY ==
[2023-03-08 15:07] VITALS: BMI 32.5
--- NOTE | 2023-03-19 08:57 | WPDANESEPPF ---
Anes - Initial Pre Proc Eval Procedure: Operation Date: 03/19/23 14:00 Proposed Procedures p Colonoscopy - Caleb Wynn MD Date/Time: 03/19/23 08:57 Surgeon: Caleb Wynn MD Pre Op Diagnosis: hematochezia Patient Data Age: 63 Gender: M Height: 1.83 m Weight: 109 kg Allergies Allergy/AdvReac Type Severity Reaction Status Date / Time No Known Allergies Allergy Verified 03/19/23 12:50 Home Medications Medication Instructions Recorded Confirmed Type folic acid 1 mg tablet 1 mg PO DAILY #90 tabs 12/11/22 03/08/23 Rx furosemide 80 mg tablet 80 mg PO BID #60 tabs 12/11/22 03/08/23 Rx melatonin 5 mg tablet 5 mg PO HS #30 tabs 12/11/22 03/08/23 Rx multivitamin-iron 9 mg-folic acid 1 tablet PO QAM #60 tabs 12/11/22 03/08/23 Rx 400 mcg-calcium and minerals tablet (Thera M Plus (ferrous fumarate)) naloxone 0.4 mg/mL injection 0.1 mg (0.25 mL) IV PUSH Q5MIN PRN 12/11/22 03/08/23 Rx solution Opioid Reversal #10 mL polyethylene glycol 3350 17 gram 17 g PO BID PRN Constipation #14 ea 12/11/22 03/08/23 Rx oral powder packet (Miralax) potassium chloride 20 mEq 40 meq PO DAILY@0800 #30 tabs 12/11/22 03/08/23 Rx tablet,extended release (K-Tab) atorvastatin 40 mg tablet 40 mg PO DAILY 03/08/23 03/08/23 History docusate sodium 100 mg capsule 100 mg PO HS 03/08/23 03/08/23 History duloxetine 60 mg capsule,delayed 60 mg PO DAILY 03/08/23 03/08/23 History release hydrocodone 10 mg-acetaminophen 1 tablet PO BID 03/08/23 03/08/23 History 300 mg tablet ropinirole 0.5 mg tablet 0.5 mg PO DAILY 03/08/23 03/08/23 History spironolactone 25 mg tablet 25 mg PO DAILY 03/08/23 03/08/23 History trazodone 50 mg tablet 50 mg PO HS PRN Insomnia 10/23/23 10/23/23 History Patient hx anesthesia problems: none Family hx anesthesia problems: none Results Review: All pre-operative results and documents have been reviewed as part of the pre-operative evaluation. [facility] Past Medical History Medical History (Updated 03/19/23 @ 13:07 by Caleb Wynn MD) Acute on chronic diastolic heart failure Chronic pain DVT (deep venous thrombosis) Peripheral arterial disease Pulmonary embolus Surgical History Surgical History History of shoulder surgery Status post surgical removal of neoplasm of 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 Family History Family History Mother Atrial fibrillation Social History Social History Social History: The patient is and has no biological children. He has a stepdaughter who is a nurse practitioner. The patient retired from [employer]. He denies any alcohol marijuana or illicit drugs. His is the durable power environmental attorney for healthcare. Code status full code Smoking status: Former smoker Tobacco type: cigarettes Alcohol intake: former Substance use type: does not use Lack of Transportation: No Lack of Food: Never True Current Housing: I Have Housing Concerned About Future Housing: No Difficulty Paying Gas/Electric Bills: YES Difficulty Paying for Meds: YES Currently Unemployed: No Education: High School Diploma/GED Difficulty w/ Childcare or Family Care: No Living arrangements: with family Gender identity (if verbalized by the patient): Male Sexual Orientation (if Verbalized by the Patient): Straight or Heterosexual Spiritual care concerns: No Anes - Eval Final PreProcedure Day of Procedure 03/19/23 08:57 Patient weight: obese Heart: regular rate and rhythm Lungs: clear to auscultation Airway: Mallampati scale class II Neurological: alert and oriented Last oral intake: >/= 8 hours ASA classification: IV Emergent: no Anesthetic plan: proceed Anesthesia type and monitoring: general GIVS and standard monitoring Results Review: All pre-o
[2023-03-19 12:51] VITALS: BP 132/87; PULSE 83; RESP 20; TEMP 36.3; O2SAT 100
--- NOTE | 2023-03-19 13:06 | PM.HPGS ---
History of Present Illness History of Present Illness Consent: Risks, benefits, and alternatives have been discussed and questions answered. Patient agrees to proceed with procedure. Chief complaint: hematochezia Narrative: Dre Yoder is a 63 year old male Referred because of blood in stool. Patient states he sometimes has very hard stool the cause is rectal pain. He has noticed very minimal bleeding. His reports occasionally there may be bright red blood. Patient referred for colonoscopy today. Patient states he had 1 previous colonoscopy and was told it was unremarkable. He is uncertain how long ago that was performed Review of Systems Review of Systems: review of systems noncontributory. [facility] Past Medical History Medical History (Updated 03/19/23 @ 13:07 by Caleb Wynn MD) Acute on chronic diastolic heart failure Chronic pain DVT (deep venous thrombosis) Peripheral arterial disease Pulmonary embolus Surgical History Surgical History History of shoulder surgery Status post surgical removal of neoplasm of 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 Family History Family History Mother Atrial fibrillation Social History Social History Social History: The patient is and has no biological children. He has a stepdaughter who is a nurse practitioner. The patient retired from [employer] He denies any alcohol marijuana or illicit drugs. His is the durable power county attorney for healthcare. Code status full code Smoking status: Former smoker Tobacco type: cigarettes Alcohol intake: former Substance use type: does not use Lack of Transportation: No Lack of Food: Never True Current Housing: I Have Housing Concerned About Future Housing: No Difficulty Paying Gas/Electric Bills: YES Difficulty Paying for Meds: YES Currently Unemployed: No Education: High School Diploma/GED Difficulty w/ Childcare or Family Care: No Living arrangements: with family Gender identity (if verbalized by the patient): Male Sexual Orientation (if Verbalized by the Patient): Straight or Heterosexual Spiritual care concerns: No Meds Home Medications and Allergies Home Medications Medication Instructions Recorded Confirmed Type folic acid 1 mg tablet 1 mg PO DAILY #90 tabs 12/11/22 03/08/23 Rx furosemide 80 mg tablet 80 mg PO BID #60 tabs 12/11/22 03/08/23 Rx melatonin 5 mg tablet 5 mg PO HS #30 tabs 12/11/22 03/08/23 Rx multivitamin-iron 9 mg-folic acid 1 tablet PO QAM #60 tabs 12/11/22 03/08/23 Rx 400 mcg-calcium and minerals tablet (Thera M Plus (ferrous fumarate)) naloxone 0.4 mg/mL injection 0.1 mg (0.25 mL) IV PUSH Q5MIN PRN 12/11/22 03/08/23 Rx solution Opioid Reversal #10 mL polyethylene glycol 3350 17 gram 17 g PO BID PRN Constipation #14 ea 12/11/22 03/08/23 Rx oral powder packet (Miralax) potassium chloride 20 mEq 40 meq PO DAILY@0800 #30 tabs 12/11/22 03/08/23 Rx tablet,extended release (K-Tab) atorvastatin 40 mg tablet 40 mg PO DAILY 03/08/23 03/08/23 History docusate sodium 100 mg capsule 100 mg PO HS 03/08/23 03/08/23 History duloxetine 60 mg capsule,delayed 60 mg PO DAILY 03/08/23 03/08/23 History release hydrocodone 10 mg-acetaminophen 1 tablet PO BID 03/08/23 03/08/23 History 300 mg tablet ropinirole 0.5 mg tablet 0.5 mg PO DAILY 03/08/23 03/08/23 History spironolactone 25 mg tablet 25 mg PO DAILY 03/08/23 03/08/23 History trazodone 50 mg tablet 50 mg PO HS PRN Insomnia 03/08/23 03/08/23 History Allergies Allergy/AdvReac Type Severity Reaction Status Date / Time No Known Allergies Allergy Verified 03/19/23 12:50 Vital Signs Vital Signs - 24 hr 03/19/23 12:51 Temperature 97.3 F L Pulse Rate 83 Respiratory Rate 20 Blood Pressure 132
[2023-03-19] MEDS: LACTATED RINGERS 1,000 ML 150 ML IV CONT (13:10)
[2023-03-19] MEDS: SIMETHICONE ORAL SUSPENSION 20 MG/0.3 ML 30 ML BOTTLE 0.6 ML IRRIGATION (14:37)
[2023-03-19 14:47] VITALS: BP 113/77; PULSE 80; RESP 22; O2SAT 100
[2023-03-19 14:57] VITALS: BP 140/100; PULSE 74; RESP 25; O2SAT 98
[2023-03-19 15:07] VITALS: BP 141/93; PULSE 75; RESP 20; O2SAT 100
== END 2023-03-19 15:11 | disposition home or self-care (01) ==
PROVIDERS: PCP Internal Medicine; Visit Provider Internal Medicine Gastroenterology
PROC: 0DJD8ZZ Inspection of Lower Intestinal Tract, Via Natural or Artificial Opening Endoscopic (ICD-10-PCS; CPT 45378; principal; 2023-03-19 14:00)
DX: D12.0 Benign neoplasm of cecum (principal); D12.2 Benign neoplasm of ascending colon; K64.8 Other hemorrhoids; I50.33 Acute on chronic diastolic (congestive) heart failure; I73.9 Peripheral vascular disease, unspecified; G89.29 Other chronic pain; Z86.718 Personal history of other venous thrombosis and embolism; Z86.711 Personal history of pulmonary embolism; Z79.891 Long term (current) use of opiate analgesic; E66.9 Obesity, unspecified; Z68.37 Body mass index [BMI] 37.0-37.9, adult
CPT/HCPCS: 45385; 88305; J2704; J7120

== ENCOUNTER 2023-04-22 12:15 | Outpatient (CLI) | payer OTHER, SELFPAY ==
--- NOTE | ~2023-04-22 | MR_ITS ---
MRI of the lumbar spine Clinical History: Spinal stenosis Technique: Axial T2-weighted images, and sagittal T1-weighted, T2-weighted, and T2 fat-sat images wer e acquired. Findings: There are bilateral L5 pars interarticularis defects, with 3 mm anterolisthesis of L5 over S1. No acute fracture seen. No suspicious bone marrow signal abnormality seen. At L1-L2, there is mild disc bulge and moderate facet arthropathy, with somewhat prominent posterior epidural fat. There is moderate thecal sac compression. Bilateral neural foramina are preserved. At L2-L3, there is disc bulge, facet arthropathy, and mildly prominent epidural fat, all which contri bute to severe thecal sac compression. Neural foramina are preserved. At L3-L4, there is disc bulge, facet arthropathy, and prominent epidural fat, with resultant severe t hecal sac compression. Neural foramina are preserved. At L4-L5, there is minimal disc bulge with moderate facet arthropathy. There is prominent epidural fa t resulting in severe thecal sac compression. Neural foramina are preserved. At L5-S1, there is mild disc bulge with severe facet arthropathy. There is prominent epidural fat res ulting in severe thecal sac compression. Neural foramina are moderately to severely narrowed. Paravertebral soft tissues otherwise are unremarkable. Impression: Severe thecal sac compression throughout the lumbar spine, which appears to be largely due to promine nt epidural fat. There are underlying degenerative changes as well, however largely, these do not kwadwo ear to directly impinge/compress the thecal sac. Bilateral L5 pars interarticularis defects, with 3 mm anterolisthesis of L5 over S1. Reviewed, dictated and finalized at location M. CUTTER Impression: Severe thecal sac compression throughout the lumbar spine, which appears to be largely due to prominent epidural fat. There are underlying degenerative change s as well, however largely, these do not appear to directly impinge/compress th e thecal sac. Bilateral L5 pars interarticularis defects, with 3 mm anterolisthesis of L5 ove r S1.
--- NOTE | ~2023-04-22 | CT_ITS ---
EXAMINATION: CT lung screening DATE: 04/22/2023 12:35 INDICATION: Screening for lung cancer TECHNIQUE: Computed tomography (CT) of the chest was performed without intravenous contrast. The dose -length product was 346.76 mGy-cm. Automated exposure control and iterative reconstruction technique were employed. COMPARISON: CT dated 12/08/2022 FINDINGS: No significant pleural or pericardial effusion. Heart size normal. No thoracic lymphadenopa thy. Small subcentimeter hypodensities of the left thyroid lobe, likely benign. There is emphysema. N o endobronchial lesions. No pneumothorax. 3 mm left lower lobe nodule with pleural surface, image 100 . Calcified granuloma left upper lobe. No focal airspace disease. IMPRESSION: 1. Lung-RADS category 2: Benign appearance or behavior. Continue annual screening with noncontrast lo w-dose chest CT in 12 months. Reviewed, dictated and finalized at location L. Y DRIVER IMPRESSION: 1. Lung-RADS category 2: Benign appearance or behavior. Continue annual screeni ng with noncontrast low-dose chest CT in 12 months.
== END 2023-04-22 12:16 | disposition home or self-care (01) ==
PROVIDERS: PCP Internal Medicine; Visit Provider Internal Medicine
DX: Z12.2 Encounter for screening for malignant neoplasm of respiratory organs (principal); Z87.891 Personal history of nicotine dependence; M48.062 Spinal stenosis, lumbar region with neurogenic claudication
CPT/HCPCS: 71271; 72148

== ENCOUNTER 2023-06-09 12:39 | Outpatient (CLI) | payer OTHER, SELFPAY ==
--- NOTE | ~2023-06-09 | MM_ITS ---
EXAMINATION: MM diagnostic jordan BI w yahir HISTORY: Mastalgia TECHNIQUE: Craniocaudal and mediolateral oblique 3-D tomosynthesis images of the breasts were perform ed and synthetic 2-D images were generated. CAD analysis was submitted and interpreted. COMPARISON: CT,04/22/2023 BREAST PARENCHYMAL COMPOSITION: The breasts are almost entirely fatty. FINDINGS: There is flame shaped tissue in the subareolar breasts, consistent with mild gynecomastia. No suspicious mass, calcification, or architectural distortion are identified. IMPRESSION: 1. Findings consistent with mild bilateral gynecomastia. BI-RADS Category 2: Benign finding(s). Reviewed, dictated and finalized at location A. LESS CONSTRUCTION MANAGER
== END 2023-06-09 12:40 | disposition home or self-care (01) ==
PROVIDERS: PCP Internal Medicine; Visit Provider Internal Medicine
DX: N64.4 Mastodynia (principal); N63.10 Unspecified lump in the right breast, unspecified quadrant
CPT/HCPCS: 77062; 77066; G0279

== ENCOUNTER 2023-07-19 10:52 | Outpatient (CLI) | payer OTHER, SELFPAY ==
--- NOTE | ~2023-07-19 | XR_ITS ---
EXAMINATION: XR lumbar spine 2-3V DATE: 07/19/2023 11:05 INDICATION: Low back pain TECHNIQUE: Anteroposterior and lateral views of the lumbar spine, and cone-down lateral view of the l umbosacral junction were obtained. COMPARISON: MRI, 04/22/2023 FINDINGS: There are bilateral L5 pars defects. Again noted is moderate to severe loss of intervertebr al disc space height at L5-S1 with stable anterolisthesis of L5 on S1. The lumbar vertebral body heig hts are maintained. There is no fracture. Small degenerative osteophytes project from the anterior en dplates of multiple vertebral bodies. An IVC filter is noted. There is moderate facet joint osteoarth ritis of the lower lumbar spine. IMPRESSION: 1. Bilateral L5 pars defects and moderate spondylosis at L5-S1 without acute findings. Reviewed, dictated and finalized at location B. RGLASS LAMINATOR IMPRESSION: 1. Bilateral L5 pars defects and moderate spondylosis at L5-S1 without acute fi ndings.
== END 2023-07-19 10:53 | disposition home or self-care (01) ==
PROVIDERS: PCP Internal Medicine; Visit Provider Physician Assistant
DX: M54.41 Lumbago with sciatica, right side (principal); M54.42 Lumbago with sciatica, left side; G89.29 Other chronic pain; M48.062 Spinal stenosis, lumbar region with neurogenic claudication; M47.897 Other spondylosis, lumbosacral region
CPT/HCPCS: 72100

== ENCOUNTER 2023-07-22 16:29 | Outpatient (CLI) | payer OTHER, SELFPAY ==
--- NOTE | ~2023-07-22 | XR_ITS ---
EXAMINATION: XR lumbar spine min 4V DATE: 07/22/2023 16:58 INDICATION: Spinal stenosis, lumbar region with neurogenic claudication. TECHNIQUE: 7 views of the lumbar spine including standing views and flexion and extension views were obtained. COMPARISON: Lumbar spine radiograph 07/19/2023, MRI 04/22/2023 FINDINGS: There are chronic bilateral L5 pars defects. There is 8 mm anterolisthesis of L5 on S1. The re is no abnormal motion with flexion or extension. Vertebral body heights are normal. There is sever vika decreased disc height at L5-S1. There is multilevel facet joint osteoarthritis, severe at L4-L5. There is a filter in the inferior vena cava. IMPRESSION: 1. Chronic bilateral L5 pars defects with grade 1 anterolisthesis of L5 on S1. 2. Severe lower lumbar spondylosis. Reviewed, dictated and finalized at location E. ICAL RESEARCH TECHNICIAN
== END 2023-07-22 16:30 | disposition home or self-care (01) ==
PROVIDERS: PCP Internal Medicine; Visit Provider Neurological Surgery
DX: M48.062 Spinal stenosis, lumbar region with neurogenic claudication (principal); M43.16 Spondylolisthesis, lumbar region; M47.896 Other spondylosis, lumbar region
CPT/HCPCS: 72110

== ENCOUNTER 2024-02-24 10:00 | Outpatient (RCR) | payer OTHER, SELFPAY ==
--- NOTE | 2024-01-20 14:14 | PTOPEVAL1 ---
Assessment and note entered by Luis A Bermeo Evaluation Information Assessment Status Evaluation Diagnosis spondylolisthesis, spinal stenosis, lumbar region ICD-10 Condition Codes (PT) Pain in low back M54.50 Onset 01/19/23 Subjective Information Pt. reports that he has had about 5-6 years of low back pain. He reports that his pain has worsened over the past year. He states that pain radiates across the low back and into the back of his legs . He reports that he can stand for a duration of about 10 minutes before having to sit. He reports that he tries to walk daily, but has to rest frequently. 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 He reports that pain wakes him and gets anywhere from 2-6 hours of sleep/night. He reports that yard work is difficult because of his inability to stand. He reports that he fluctuates in regards to weight, and states that he has been trying to lose weight. He reports that he currently smokes 1 pack a day. He reports that he takes Hydrocodone up to 4x/day for pain. He reports that his goal is to decrease his back pain. Reported Pain Level Pain Score 7: Self Report Assessment PT Clinical Summary Pt. is a 63 year old male who enters the clinic due to back pain secondary to spinal stenosis. He presents with abdominal and proximal l.e. weakness, impaired trunk mobility, impaired postural awareness, pain and functional decline. Continued skilled PT is indicated in order to improve these areas to allow for improved comfort and efficiency with IADL performance. Plan of Care Interventions Electrical Stimulation,Hot Pack/Cold Pack,Manual Therapy,Neuro Re-education,Patient/Caregiver Educati,Therapeutic Activities,Therapeutic Exercise PT Services Indicated Yes Treatment Frequency and 2x/week x 10 visits Duration These treatments will address the objective and functional deficits as defined above. The patient will be advanced safely and appropriately in order for the patient to progress towards his/her prior level of function. Additional exercises will be introduced and as well as a comprehensive home exercise program upon discharge, if needed, ?to ensure carryover of functional gains achieved in the clinic. This treatment plan has been reviewed and agreement upon by the patient.
--- NOTE | 2024-01-20 14:15 | OPREHPOC ---
Outpatient Therapy Plan of Care This is a Multidisciplinary Plan of Care that may contain components documented by all disciplines (PT, OT, and ST.) PT Problem 1 PT Problem #1 Knowledge Deficit PT Goal 1 Goal / Goal Update Independent with a HEP addressing trunk mobility Target Visit 2 PT Problem 2 PT Problem #2 Pain PT Goal 1 Goal / Goal Update Reduction in pain levels to 8/10 at worst over a 2 week period (4 visits) Reduction of pain to 6/10 at worst with prolonged standing activities. Target Visit 10 PT Problem 3 PT Problem #3 Impaired Functional Mobil PT Goal 1 Goal / Goal Update Pt. will demonstrate the ability to lift 10# from floor to waist for 10 reps with proper mechanics and no pain increase. Pt. will demonstrate ability to ambulate for 15 min through the clinic without rest or pain increase. Target Visit 10 PT Problem 4 PT Problem #4 Impaired Strength PT Goal 1 Goal / Goal Update Pt. will present with fair+ lower abdominal strength to allow for improved lumbar stability with standing activities. Target Visit 10
--- NOTE | 2024-02-08 09:24 | PCPTNOTE ---
Called and canceled , reason unknown. AKS
--- NOTE | 2024-02-24 10:36 | PTOPDC ---
Assessment and note entered by Rachel Olivera, PT Discharge Report Assessment Status Discharge Diagnosis spondylolisthesis, spinal stenosis, lumbar region ICD-10 Condition Codes (PT) Pain in low back M54.50 Onset 01/19/23 Subjective Information back is the same, therapy helps for a few hours, then pain returns; after I do the therapy stretches-- have to lie down due to pain worse; have been doing some walking but sit and rest when back hurts more; not really time the walking, but about 10 minutes; is able to do everything around the house, but takes him longer and has to rest alot during; want to be done with therapy and go back to the dr; do not want to do any exercises or things today that will make me hurt more; Reported Pain Level Pain Score Self Report Additional Pain Score Comments pain range in the past week 5-8/10; R and L lumbar area- burning decrease pain: sit, rest; lean forward; hydrocodone-- take 2-4 pills/day; have home stim unit- use some increase pain: lifting anything heat and ice do not change pain; is able to sleep about 5-8 hours/night Assessment PT Clinical Summary Dre has received 9 PT sessions. Compared to the initial evaluation: his pain rating is now 5-8/10; reported sleeping tolerance from 2-6 hours to 5-8 hours at time and walking tolerance of about 10 minutes; self assessment Oswestry rating from 58 to 50% limitation in activity level; he has been educated on HEP and body mechanics. He reports therapy is not helping. He wants to go back to the dr. The goals were partially met. Discharge PT. He is to follow up with the dr. Plan of Care PT Services Indicated No
== END 2024-02-24 13:44 | disposition home or self-care (01) ==
LOC: ANHPT 10:00
PROVIDERS: PCP Internal Medicine; Visit Provider Neurological Surgery
DX: M43.16 Spondylolisthesis, lumbar region (principal); M48.062 Spinal stenosis, lumbar region with neurogenic claudication
CPT/HCPCS: 97014; 97110; 97140; 97161; 97530; G0283

== ENCOUNTER 2025-01-07 16:09 | Observation (INO) | payer OTHER, SELFPAY ==
[2025-01-07] VITALS (15 sets, daily range): BP systolic 115–152; BP diastolic 79–110; PULSE 62–80; RESP 14–20; TEMP 36.4; O2SAT 96–100
--- NOTE | ~2025-01-07 | XR_ITS ---
XR tibia fibula LT 2V 01/07/2025 18:24 INDICATION: Left lower extremity wounds. PROCEDURE: 2 views left tibia/fibula. COMPARISON: No prior studies for comparison. FINDINGS: Fracture, dislocation or subluxation is not identified. There is soft tissue swelling laterally in the lower extremity particularly at the ankle level. No evidence for osteomyelitis. No foreign bodies are identified. IMPRESSION: 1: NO ACUTE BONE OR JOINT ABNORMALITY IDENTIFIED. Reviewed, dictated and finalized at location O.
--- NOTE | ~2025-01-07 | CT_ITS ---
EXAMINATION: CT LE LT w con DATE: 01/07/2025 20:13 INDICATION: Concern for osteomyelitis TECHNIQUE: Computed tomography (CT) of the left lower extremity was performed with 100 cc Omnipaque 350 intravenous contrast. The dose-length product was 1309.28 mGy-cm. Automated exposure control and iterative reconstruction technique were employed. COMPARISON: Left tibia/fibula dated 01/07/2025 FINDINGS: There is mild subcutaneous edema of the distal aspect of the left lower extremity extending through the foot. No fracture, subluxation or dislocation. No periosteal reaction or erosive changes are identified to suggest osteomyelitis. IMPRESSION: 1. No significant abnormality of the left lower extremity. No evidence for osteomyelitis. If there is continuing clinical concern for osteomyelitis, dedicated MRI of the lower extremity with contrast recommended. Reviewed, dictated and finalized at location O. IMPRESSION: 1. No significant abnormality of the left lower extremity. No evidence for oste omyelitis. If there is continuing clinical concern for osteomyelitis, dedicated MRI of the lower extremity with contrast recommended.
--- NOTE | 2025-01-07 17:13 | ED.WOUNDLAC ---
HPI - Wound/Laceration General Chief Complaint: Wound/Laceration Stated Complaint: Laceration to left leg x 1 week Time Seen by Provider: 01/07/25 16:24 History of Present Illness HPI narrative: Patient is a 64-year-old male who presents to the ER after sustaining an injury to his right lower extremity 1 week ago. He reports he was moving a bed frame and ran into a screw sticking out from his boat. Patient reports approximately 2 days ago ?it popped and pus came out.He endorses significantly increased pain over the last 24 hours. Patient denies any recent fevers, calf pain, numbness and tingling, or other open wounds. He endorses a recent diagnosis of diabetes and high blood pressure. His chart indicates he has a history of DVT and PE. Related Data Home Medications ?Medication ?Instructions ?Recorded ?Confirmed ?Last Taken ?Type atorvastatin 40 mg tablet 40 mg PO DAILY 03/08/23 01/07/25 01/07/25 History docusate sodium 100 mg capsule 100 mg PO HS 03/08/23 01/07/25 01/07/25 History duloxetine 60 mg capsule,delayed 60 mg PO DAILY 03/08/23 01/07/25 01/07/25 History release ropinirole 0.5 mg tablet 0.5 mg PO HS 03/08/23 01/07/25 01/06/25 History spironolactone 25 mg tablet 25 mg PO DAILY 03/08/23 01/07/25 01/07/25 History trazodone 50 mg tablet 50 mg PO HS Insomnia 03/08/23 01/07/25 01/06/25 History hydrocodone 10 mg-acetaminophen 1 tablet PO BID 01/07/25 01/07/25 01/07/25 History 325 mg tablet melatonin 5 mg tablet 10 mg PO HS 01/07/25 01/07/25 01/06/25 History metformin 500 mg tablet,extended 500 mg PO .evening 01/07/25 01/07/25 01/06/25 History release 24 hr naproxen 500 mg tablet 500 mg PO BID 01/07/25 01/07/25 01/07/25 History testosterone cypionate 200 mg/mL 200 mg IM .Every Other Wednesday01/07/25 01/07/25 01/05/25 History intramuscular oil tirzepatide 2.5 mg/0.5 mL 2.5 mg subcut .wednesday01/07/25 01/07/25 01/07/25 History subcutaneous pen injector (Mounjaro) Allergies Allergy/AdvReac Type Severity Reaction Status Date / Time No Known Allergies Allergy Verified 01/07/25 16:23 Review of Systems Review of Systems: All systems reviewed & are unremarkable except as noted in HPI and below FORMERLY [facility] Past Medical History Medical History (Updated 01/10/25 @ 00:06 by Sariah Perez, BE[employer]) Alcohol use disorder, mild, in sustained remission 30 pack per day but quit 2022 Erectile dysfunction Low testosterone in male Hepatic steatosis Diabetes mellitus (11/2024) Cervical radiculopathy Chronic low back pain with bilateral sciatica Inguinal hernia bilateral, non-recurrent Nontraumatic retroperitoneal hematoma (11/2022) Thyroid nodule Deep venous thrombosis (DVT) of both peroneal veins (~2022) Fatty liver due to alcoholism Diastolic heart failure Echocardiogram 11/2022: EF 60 65%, E/E 11 is still mildly elevated, abnormal diastolic function Lumbar spinal stenosis Chronic pain Peripheral arterial disease Pulmonary embolus Submassive pulmonary embolism following rotator cuff surgery 2009 treated with tPA and IVC filter Surgical History Surgical History (Updated 01/07/25 @ 22:56 by Lilibeth Mcgee DO) S/P insertion of IVC (inferior vena caval) filter (12/2009) History of repair of right rotator cuff May 2009 and December 2009 Status post surgical removal of neoplasm of 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 Family History Family History Mother Atrial fibrillation Social History Social History (Updated 01/08/25 @ 00:56 by Lilibeth Mcgee DO) Social History: The patient is and has no biological children. He has a stepdaughter who is a nurse practitioner. The patient retired from [employer]. He retired in 2022 due to worsening chronic back pain. He has smoked 1-1.5 packs of cigarettes per day since he was a teenager. Patient was a prior heavy drinker (30 pack per day) but quit in November of 2022. He denies history of illicit substance use. Code status: Full code Healthcare power of admitted attorneys: Holli Liu (significant other) Smoking packs per day: 1 Smoking cigarettes per day: 20.0 Years smoked: 40 Smoking pack-years: 40.00 Smoking status: Former smoker Alcohol intake: former Alcohol use details: pt stopped drinking 11/27/22 per spouse Substance use: current Substance use type: marijuana Do You Feel Safe in your Home?: Yes Lack of Transportation: No Lack of Food: Never True Current Housing: I Have Housing Concerned About Future Housing: No Difficulty Paying Gas/Electric Bills: No Difficulty Paying for Meds: No Currently Unemployed: No Education: Grade School Difficulty w/ Childcare or Family Care: No Living arrangements: with family Gender identity (if verbalized by the patient): Male Sexual Orientation (if Verbalized by the Patient): Straight or Heterosexual Spiritual care concerns: No Exam Narrative: GENERAL: Well appearing, well-nourished, non-toxic, in no acute distress. HEAD: Normocephalic, atraumatic. NECK: Supple. No adenopathy, no masses. RESPIRATORY: Airway patent, respirations nonlabored. Clear to auscultation bilaterally, no rales, rhonchi, wheezing. CARDIOVASCULAR: Regular rate and rhythm without murmurs, rubs, or gallops. Peripheral pulses 2+ and equal bilaterally. ABDOMINAL: Soft, nontender, nondistended, no hepatosplenomegaly. Normoactive BS. MUSCULOSKELETAL: Moves all extremities. Strength/ROM intact without gross deformities. SKIN: Warm, dry. No rashes. Significant edema and redness to left anterior calf. Oval-shaped necrotic area fci down garcia, approximately 9cm X 6cm. NEURO: A&O X3. Speech clear. Cranial nerves II-XII intact. No ataxic movements. PSYCHIATRIC: Appropriate mood and affect. Normal interaction. Course Vital Signs Vital signs: Vital Signs Temperature 36.4 C 01/07/25 16:13 Pulse Rate 62 01/07/25 16:13 Respiratory Rate 16 01/07/25 16:13 Blood Pressure 122/80 01/07/25 16:13 Pulse Oximetry 99 01/07/25 16:13 Oxygen Delivery Room Air 01/07/25 16:13 Temperature 36.5 C 01/09/25 04:45 Pulse Rate 56 L 01/09/25 04:45 Respiratory Rate 18 01/09/25 04:45 Blood Pressure 122/85 01/09/25 04:45 Pulse Oximetry 98 01/09/25 04:45 Oxygen Delivery Room Air 01/08/25 21:42 MDM - Wound/Laceration MDM Narrative Medical decision making narrative: Patient is a 64-year-old male who presents to the ER after sustaining an injury to his right lower extremity 1 week ago. He reports he was moving a bed frame and ran into a screw sticking out from his boat. Patient reports approximately 2 days ago ?it popped and pus came out.He endorses significantly increased pain over the last 24 hours. Patient denies any recent fevers, calf pain, numbness and tingling, or other open wounds. He endorses a recent diagnosis of diabetes and high blood pressure. His chart indicates he has a history of DVT and PE. Labs Ordered: CBC, CMP, UA, PTT, INR, CRP, D-dimer, lactic acid Imaging Ordered: Left tib-fib x-ray, CT left lower extremity Medications Ordered: 3 L normal saline IV bolus, Flagyl IV, Dilaudid IV, vancomycin IV, cefepime IV, Tdap Results: Patient's CT scan indicates No significant abnormality of the left lower extremity. No evidence for osteomyelitis. If there is continuing clinical concern for osteomyelitis, dedicated MRI of the lower extremity with contrast recommended. Diagnosis: L lower leg cellulitis Results of imaging and lab work shared with patient and his family. It was advised patient be admitted to the hospital for further evaluation and treatment. Patient and his family verbalized understanding and are in agreement with plan. [facility] hospitalist, Dr. Mcgee, who was in agreement with plan for admission to hospital. Pt will be admitted to med/surg. He will continue to receive IV abx and pain medication. Differential Diagnosis Differential diagnosis: Likely laceration, abscess and other (Cellulitis) Lab Data Attestation: I reviewed the patient's lab results. 01/09/25 05:06 01/09/25 05:06 Labs: Lab Results 01/07/25 01/07/25 01/07/25 Range/Units 17:30 17:32 18:05 WBC 8.8 (4.5-10.0) K/mm3 RBC 5.18 (4.6-6.20) M/mm3 Hgb 15.4 D (14.0-18.0) g/dL Hct 46.2 (42.0-52.0) % MCV 89.2 (80-100) fl MCH 29.7 (26-34) pg MCHC 33.3 (32-36) g/dl RDW 14.6 H (11.5-14.5) % Plt Count 328 (150-375) k/mm3 MPV 9.2 (7.4-10.4) fl Immature Gran % (Auto) 0.5 (0-0.5) % Neut % (Auto) 58.4 (45.5-73.1) % Lymph % (Auto) 28.6 (18.3-44.2) % [place] % (Auto) 8.1 (2.6-8.5) % Eos % (Auto) 3.6 (0-4.4) % Baso % (Auto) 0.8 (0.2-1.2) % Lymph # (Auto) 2.51 (0.9-3.2) K/mm3 [place] # (Auto) 0.7 H (0.1-0.6) K/mm3 Eos # (Auto) 0.3 (0-0.3) K/mm3 Baso # (Auto) 0.1 (0.0-0.1) K/mm3 Abs Immat Gran (auto) 0.04 H (0.00-0.031) K/mm3 Absolute Neuts (auto) 5.1 (1.3-6.7) K/mm3 Absolute Nucleated RBC 0.000 (0.0-0.012) K/mm3 Nucleated RBC % 0.0 (0.0-0.2) % PT 14.0 (11.1-14.7) Seconds INR 1.1 APTT 31.4 (22.3-36.8) Seconds D-Dimer < 0.27 (<0.48) ug/mL Sodium 136 L (137-145) mmol/L Potassium 3.7 (3.4-5.0) mmol/L Chloride 99 (98-107) mmol/L Carbon Dioxide 28 (22-30) mmol/L Anion Gap 9 (4-12) mmol/L BUN 11 D (9-20) mg/dL Creatinine 1.05 (0.7-1.3) mg/dL Estim Creat Clear Calc 83 ml/min Estimated GFR > 60 (59 - ) Glucose 94 (65-110) mg/dL POC Capillary Glucose 91 (65-105) mg/dl Lactic Acid 1.3 (0.7-2.0) mmol/L Calcium 9.6 (8.4-10.2) mg/dL Total Bilirubin 0.8 (0.2-1.3) mg/dL AST 34 (17-59) U/L ALT 15 (6-50) U/L Alkaline Phosphatase 99 (38-126) U/L C-Reactive Protein 1.6 H (<1.0) mg/dL Total Protein 7.6 (6.3-8.2) g/dL Albumin 4.4 (3.5-5.1) g/dL Urine Color Yellow (Yellow) Urine Appearance Clear (Clear) Urine pH 7.0 (5.0-9.0) Ur Specific [place] 1.005 (1.001-1.035) Urine Protein Negative (Negative) mg/dL Urine Glucose (UA) Negative (Negative) mg/dL Urine Ketones Negative (Negative) mg/dL Ur Blood (Man) Negative (Negative) Urine Nitrate Negative (Negative) Urine Bilirubin Negative (Negative) Urine Urobilinogen 1.0 (<2.0) mg/dL Leukocyte Esterase Rfl Negative (Negative) APPLE/UL Discharge Plan Discharge Clinical Impression: Left leg cellulitis, Puncture wound of left lower extremity Patient Disposition: Still a Patient Condition: Stable
[2025-01-07] MEDS: TETANUS,DIPHTHERIA,AC PERTUSSIS ADULT (0.5 ML) BOOSTRIX IM (17:35)
[2025-01-07] MEDS: HYDROmorphone HCL INJ (*CRX) 1 MG/ML SYR 0.5 MG IV PUSH (17:36)
[2025-01-07] MEDS: SODIUM CHLORIDE 0.9% IV 1,000 ML 999 ML IV CONT ×3 (17:37→17:48)
[2025-01-07 17:41] LABS: Add Urine Microscopic? NO; Appearance Urine Clear (Clear); Glucose Urine UA Negative (Negative); Leukocyte Esterase Ur Negative LEU/UL (Negative); Nitrate Urine Negative (Negative); Specific Grav Ur 1.005 (1.001-1.035)
[2025-01-07] MEDS: CEFEPIME 2 GM in SODIUM CHLORIDE 0.9% IV 50 ML 100 ML IVPB (17:42)
[2025-01-07 17:43] LABS: Hematocrit 46.2 % (42.0-52.0); Hemoglobin 15.4 g/dL (14.0-18.0); Immature Granulocyte Percent A 0.5 % (0-0.5); Lymphocytes Absolute Auto 2.51 K/mm3 (0.9-3.2); Mean Corpuscular HGB Conc 33.3 g/dl (32-36); Mean Corpuscular Hemoglobin 29.7 pg (26-34); Mean Corpuscular Volume 89.2 fl (80-100); Nucleated Red Blood Cells Absolute Auto 0.000 K/mm3 (0.0-0.012); Nucleated Red Blood Cells Perc 0.0 % (0.0-0.2); Platelet Count Result 328 k/mm3 (150-375); Red Blood Count 5.18 M/mm3 (4.6-6.20); White Blood Count 8.8 K/mm3 (4.5-10.0)
[2025-01-07 17:55] LABS: Partial Thromboplastin Time 31.4 Seconds (22.3-36.8)
[2025-01-07 17:56] LABS: INR 1.1; Prothrombin Time 14.0 Seconds (11.1-14.7)
[2025-01-07 17:57] LABS: Alanine Aminotransferase 15 U/L (6-50); Albumin Level 4.4 g/dL (3.5-5.1); Alkaline Phosphatase 99 U/L (38-126); Anion Gap 9 mmol/L (4-12); Aspartate Amino Transferase 34 U/L (17-59); Bilirubin,Total 0.8 mg/dL (0.2-1.3); Blood Urea Nitrogen 11 mg/dL (9-20); CRP 1.6 mg/dL (<1.0); Calcium 9.6 mg/dL (8.4-10.2); Carbon Dioxide 28 mmol/L (22-30); Chloride 99 mmol/L (98-107); Estimated CRCL calculation 83 ml/min; Estimated Glomerular Filt Rate > 60; Glucose 94 mg/dL (65-110); Potassium 3.7 mmol/L (3.4-5.0); Sodium 136 mmol/L (137-145); Total Protein 7.6 g/dL (6.3-8.2)
[2025-01-07] MEDS: metroNIDAZOLE 500 MG/ISO 100ML 500 MG/100 ML BAG 100 MG IVPB (18:43)
[2025-01-07] MEDS: SODIUM CHLORIDE 0.9% IV 600 ML 999 ML IV CONT (19:17)
[2025-01-07] MEDS: VANCOMYCIN 1,250 MG/NS 250 ML 1,250 MG/250 ML BAG 166.67 MG IVPB ×2 (20:31→22:12)
[2025-01-07] MEDS: HYDROmorphone HCL INJ (*CRX) 1 MG/ML SYR IV PUSH (21:07)
[2025-01-07] MEDS: SODIUM CHLORIDE 0.9% IV 1,000 ML 125 ML IV CONT (23:15)
[2025-01-07] MEDS: HYDROcodone/acetaminophen (*CRX) 5-325 MG TABLET 1 TAB PO (23:22)
--- NOTE | 2025-01-08 00:10 | PM.IMHP ---
H&P: HPI History of Present Illness Date/Time: 01/08/25 00:10 Chief Complaint: Left lower leg wound Narrative: 64-year-old male with past medical history of diabetes mellitus obesity, spinal stenosis with lumbar claudication, cervical radiculopathy, hyperlipidemia, and diastolic congestive heart failure who presented to the ER from home due to worsening lower extremity wound. He reports that he recently got a new bed frame and 1 of the bolts was sticking out of the bed frame and he poked his leg with it about 8 days ago. Initially the wound developed a overlying blister at looked like a large pimple. A few days later the area popped and drained some purulent-appearing material. He has not had any further drainage from that area. He tried to plating some Neosporin on the wound for 2 or 3 days. Then over the last couple of days he has developed increasing swelling of the lower extremity and increasing pain. He reports the pain is an 8/10 in intensity and is throbbing in nature. It is unrelieved despite his home pain medications. He has not had any fevers or chills. He denies history of prior skin infections or chronic wounds. He was recently diagnosed with diabetes and was started on metformin in November. He denies any nausea or vomiting. He reports that he has lost about 100 lb since he quit drinking alcohol. He quit drinking alcohol after a spontaneous hemoperitoneum in 2022. Prior to quitting he drink a 30 pack per day. He still smokes a pack of cigarettes per day and has done so since he was a teenager. He smokes marijuana daily. He denies recent antibiotic use. He denies a known history of COPD but does intermittently wheeze. He denies frequent lung infections or shortness of breath. He denies chest pain or palpitations. He states that his says he snores. He has never been tested for sleep apnea. Review of Systems Review of Systems: 12 systems were reviewed with pertinent positives and negatives per HPI. Except as documented in the HPI, all other systems were reviewed and are negative. [facility] Past Medical History Medical History (Updated 01/08/25 @ 00:54 by Lilibeth Mcgee DO) Alcohol use disorder, mild, in sustained remission 30 pack per day but quit 2022 Erectile dysfunction Low testosterone in male Hepatic steatosis Diabetes mellitus (11/2024) Cervical radiculopathy Chronic low back pain with bilateral sciatica Inguinal hernia bilateral, non-recurrent Nontraumatic retroperitoneal hematoma (11/2022) Thyroid nodule Deep venous thrombosis (DVT) of both peroneal veins (~2022) Fatty liver due to alcoholism Diastolic heart failure Echocardiogram 11/2022: EF 60 65%, E/E 11 is still mildly elevated, abnormal diastolic function Lumbar spinal stenosis Chronic pain Peripheral arterial disease Pulmonary embolus Submassive pulmonary embolism following rotator cuff surgery 2009 treated with tPA and IVC filter Surgical History Surgical History (Updated 01/07/25 @ 22:56 by Lilibeth Mcgee DO) S/P insertion of IVC (inferior vena caval) filter (12/2009) History of repair of right rotator cuff May 2009 and December 2009 Status post surgical removal of neoplasm of 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 Family History Family History Mother Atrial fibrillation Social History Social History (Updated 01/08/25 @ 00:56 by Lilibeth Mcgee DO) Social History: The patient is and has no biological children. He has a stepdaughter who is a nurse practitioner. The patient retired from [employer]. He retired in 2022 due to worsening chronic back pain. He has smoked 1-1.5 packs of cigarettes per day since he was a teenager. Patient was a prior heavy drinker (30 pack per day) but quit in November of 2022. He denies history of illicit substance use. Code status: Full code Healthcare power of trade mark attorney: Holli Liu (significant other) Smoking packs per day: 1 Smoking cigarettes per day: 20.0 Years smoked: 40 Smoking pack-years: 40.00 Smoking status: Former smoker Alcohol intake: former Alcohol use details: pt stopped drinking 11/27/22 per spouse Substance use: current Substance use type: marijuana Do You Feel Safe in your Home?: Yes Lack of Transportation: No Lack of Food: Never True Current Housing: I Have Housing Concerned About Future Housing: No Difficulty Paying Gas/Electric Bills: No Difficulty Paying for Meds: No Currently Unemployed: No Education: Grade School Difficulty w/ Childcare or Family Care: No Living arrangements: with family Gender identity (if verbalized by the patient): Male Sexual Orientation (if Verbalized by the Patient): Straight or Heterosexual Spiritual care concerns: No Meds Home Medications and Allergies Home Medications ?Medication ?Instructions ?Recorded ?Confirmed ?Type folic acid 1 mg tablet 1 mg PO DAILY #90 tabs 12/11/22 01/07/25 Rx furosemide 80 mg tablet 80 mg PO BID #60 tabs 12/11/22 01/07/25 Rx multivitamin-iron 9 mg-folic acid 1 tablet PO QAM #60 tabs 12/11/22 01/07/25 Rx 400 mcg-calcium and minerals tablet (Thera M Plus (ferrous fumarate)) polyethylene glycol 3350 17 gram 17 g PO BID PRN Constipation #14 ea 12/11/22 01/07/25 Rx oral powder packet (Miralax) potassium chloride 20 mEq 40 meq (2 x 20 mEq) PO DAILY@0800 12/11/22 01/07/25 Rx tablet,extended release (K-Tab) #30 tabs atorvastatin 40 mg tablet 40 mg PO DAILY 03/08/23 01/07/25 History docusate sodium 100 mg capsule 100 mg PO HS 03/08/23 01/07/25 History duloxetine 60 mg capsule,delayed 60 mg PO DAILY 03/08/23 01/07/25 History release ropinirole 0.5 mg tablet 0.5 mg PO HS 03/08/23 01/07/25 History spironolactone 25 mg tablet 25 mg PO DAILY 03/08/23 01/07/25 History trazodone 50 mg tablet 50 mg PO HS Insomnia 03/08/23 01/07/25 History hydrocodone 10 mg-acetaminophen 1 tablet PO BID 01/07/25 01/07/25 History 325 mg tablet melatonin 5 mg tablet 10 mg PO HS 01/07/25 01/07/25 History metformin 500 mg tablet,extended 500 mg PO .evening 01/07/25 01/07/25 History release 24 hr naproxen 500 mg tablet 500 mg PO BID 01/07/25 01/07/25 History testosterone cypionate 200 mg/mL 200 mg IM .Every Other Wednesday01/07/25 01/07/25 History intramuscular oil tirzepatide 2.5 mg/0.5 mL 2.5 mg subcut .wednesday01/07/25 01/07/25 History subcutaneous pen injector (Fernyunal) Allergies Allergy/AdvReac Type Severity Reaction Status Date / Time No Known Allergies Allergy Verified 01/07/25 16:23 Vital Signs Vital Signs - 24 hr 01/07/25 16:13 01/07/25 16:23 01/07/25 16:26 Temperature 97.6 F Pulse Rate 62 80 Respiratory Rate 16 20 Blood Pressure 122/80 135/92 H Pulse Oximetry 99 97 98 Oxygen Delivery Room Air 01/07/25 16:37 01/07/25 16:45 01/07/25 16:46 Temperature Pulse Rate Respiratory Rate Blood Pressure 125/83 Pulse Oximetry 96 96 97 Oxygen Delivery 01/07/25 17:40 01/07/25 17:45 01/07/25 17:46 Temperature Pulse Rate Respiratory Rate Blood Pressure 115/81 Pulse Oximetry 98 97 96 Oxygen Delivery 01/07/25 18:10 01/07/25 19:01 01/07/25 19:16 Temperature Pulse Rate 72 66 69 Respiratory Rate 14 15 19 Blood Pressure 137/79 124/110 H Pulse Oximetry 98 99 97 Oxygen Delivery 01/07/25 19:31 01/07/25 19:46 Temperature Pulse Rate 62 72 Respiratory Rate 17 14 Blood Pressure 128/88 152/108 H Pulse Oximetry 99 100 Oxygen Delivery Exam Narrative: Weight 117 kg BMI 37 Const: Other: Obese, no acute distress, appears stated age HENMT: Other: Mucous membranes are moist, no oral pharyngeal erythema, edentulous in upper and lower jaw Eyes: Other: Mildly injected sclera, no scleral icterus, pupils are equal and reactive Neck: Other: Large neck circumference, no anterior cervical lymphadenopathy Resp: Other: End-expiratory wheezing left upper lung bryan, no increased work of breathing Cardio: Other: Regular rate, regular rhythm, 2+ bilateral radial pedal pulses, no JVD GI: Other: Mildly distended, soft, nontender, normoactive bowel sounds Skin: Other: Tanned, non jaundice, left lower extremity wound lateral mid anterior garcia with central area of black scab formation, mild surrounding erythema slightly increased warmth compared to contralateral side no fluctuance, no drainage Neuro: Other: Alert oriented, speech is clear, no facial asymmetry, no localizing neurologic deficits noted during the course of conversation Extrem: Other: 1+ pitting edema left foot and ankle, wound to anterior garcia as discussed above Psych: Other: Appropriate mood and affect, pleasant and cooperative, judgment and insight intact H&P: Results Labs Labs: Laboratory Tests 01/07/25 17:30 01/07/25 17:30 01/07/25 01/07/25 01/07/25 17:30 17:32 18:05 WBC 8.8 RBC 5.18 Hgb 15.4 D Hct 46.2 MCV 89.2 MCH 29.7 MCHC 33.3 RDW 14.6 H Plt Count 328 MPV 9.2 Immature Gran % (Auto) 0.5 Neut % (Auto) 58.4 Lymph % (Auto) 28.6 [place] % (Auto) 8.1 Eos % (Auto) 3.6 Baso % (Auto) 0.8 Lymph # (Auto) 2.51 [place] # (Auto) 0.7 H Eos # (Auto) 0.3 Baso # (Auto) 0.1 Abs Immat Gran (auto) 0.04 H Absolute Neuts (auto) 5.1 Absolute Nucleated RBC 0.000 Nucleated RBC % 0.0 PT 14.0 INR 1.1 APTT 31.4 D-Dimer < 0.27 Sodium 136 L Potassium 3.7 Chloride 99 Carbon Dioxide 28 Anion Gap 9 BUN 11 D Creatinine 1.05 Estim Creat Clear Calc 83 Estimated GFR > 60 Glucose 94 POC Capillary Glucose 91 Lactic Acid 1.3 Calcium 9.6 Total Bilirubin 0.8 AST 34 ALT 15 Alkaline Phosphatase 99 C-Reactive Protein 1.6 H Total Protein 7.6 Albumin 4.4 Urine Color Yellow Urine Appearance Clear Urine pH 7.0 Ur Specific [place] 1.005 Urine Protein Negative Urine Glucose (UA) Negative Urine Ketones Negative Ur Blood (Man) Negative Urine Nitrate Negative Urine Bilirubin Negative Urine Urobilinogen 1.0 Leukocyte Esterase Rfl Negative Impressions Tibia/Fibula X-Ray 01/07/25 19:50 IMPRESSION: 1: NO ACUTE BONE OR JOINT ABNORMALITY IDENTIFIED. All imaging personally reviewed and interpreted. And unless stated otherwise agree with radiologic interpretation. 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 Patient does have complicating factors of underlying diabetes and peripheral arterial disease. Patient's glucoses are currently well controlled. He does have ulceration but no evidence of underlying abscess on CT in no overt evidence of abscess or osteomyelitis on CT on my review. Stat read interpretation also states no evidence of osteomyelitis and does not mention overlying cellulitis but patient clearly has cellulitis on visual exam. Fortunately is not septic and his glucoses are within normal limits. Patient been started on empiric antibiotic therapy per antibiotics guidelines with cefepime, vancomycin and Flagyl given his diabetic status. Will check MRSA screen if MRSA is negative will deescalate antibiotics. I suspect the patient's cellulitis is more due to puncture wound in less likely related to his diabetes given is euglycemic state and only recent diagnosis of diabetes. Will hold the patient's metformin given recent contrast use. Will place patient on low-dose sliding scale insulin as needed for hyperglycemia. Patient is on I consistent carbohydrate diet. Will resume the patient's home pain medications including duloxetine, gabapentin, Requip and [place]. Will provide [place] for pain 4-10 and and Dilaudid as needed for breakthrough pain. Patient does have diastolic heart failure but appears euvolemic. Will resume home diuretic therapy. Will discontinue maintenance IV fluids. The patient with contrast gradually did on his sobriety from alcohol. He reports that quitting alcohol is 1 of the easiest thing see ever did. He has absolutely no interest in tobacco cessation. Tobacco cessation education has been provided. He denies need for nicotine supplements at this time Patient has been admitted as observation status. MEDICAL DECISION MAKING NARRATIVE -Spoke with the ED provider in detail regarding patient's evaluation, workup and management -Patient seen and examined at bedside -Collaborated with patient's nurse at the bedside in detail and addressed all concerns -Labs, electrolytes, radiology, investigations and test results personally reviewed and interpreted unless otherwise specified -ED/Consult/Nursing/Ancilliary notes on the chart reviewed and appreciated -Spoke with patient at bedside and diagnosis and plan of care was discussed. All questions answered. Quality VTE Prophylaxis VTE prophylaxis: pharmacologic ordered (Lovenox 40 mg subQ daily.) Hospitalist MIPS Advance Care Plan I have confirmed that the patient's Advanced Care Plan is present, code status is documented, or surrogate decision maker is listed in patient medical record.: Yes Medication Reconciliation I have utilized all available resources to obtain, update and review the patients current medications (includes all prescriptions, OTC, herbals, cannabis, and nutritional supplements).: Yes
[2025-01-08] MEDS: HYDROmorphone HCL INJ (*CRX) 1 MG/ML SYR IV PUSH ×2 (01:11→05:30)
[2025-01-08 02:09] LABS: MRSA (PCR) NOT DETECTED (NOT DETECTE)
[2025-01-08] MEDS: HYDROcodone/acetaminophen (*CRX) 10-325 MG TABLET 1 TAB PO ×2 (03:12→09:11)
[2025-01-08] MEDS: metroNIDAZOLE 500 MG/ISO 100ML 500 MG/100 ML BAG 100 MG IVPB (03:14)
[2025-01-08 04:09] VITALS: BMI 38.1
[2025-01-08] MEDS: CEFEPIME 2 GM in SODIUM CHLORIDE 0.9% IV 50 ML 100 ML IVPB (05:20)
[2025-01-08 05:51] LABS: Hematocrit 42.1 % (42.0-52.0); Hemoglobin 13.7 g/dL (14.0-18.0); Immature Granulocyte Percent A 0.4 % (0-0.5); Lymphocytes Absolute Auto 2.16 K/mm3 (0.9-3.2); Mean Corpuscular HGB Conc 32.5 g/dl (32-36); Mean Corpuscular Hemoglobin 29.7 pg (26-34); Mean Corpuscular Volume 91.1 fl (80-100); Nucleated Red Blood Cells Absolute Auto 0.000 K/mm3 (0.0-0.012); Nucleated Red Blood Cells Perc 0.0 % (0.0-0.2); Platelet Count Result 297 k/mm3 (150-375); Red Blood Count 4.62 M/mm3 (4.6-6.20); White Blood Count 7.4 K/mm3 (4.5-10.0)
[2025-01-08 06:00] VITALS: BP 106/68; PULSE 65; RESP 18; TEMP 36.5; O2SAT 97
[2025-01-08 06:05] LABS: Anion Gap 5 mmol/L (4-12); Blood Urea Nitrogen 9 mg/dL (9-20); Calcium 8.1 mg/dL (8.4-10.2); Carbon Dioxide 26 mmol/L (22-30); Chloride 105 mmol/L (98-107); Estimated CRCL calculation 92 ml/min; Estimated Glomerular Filt Rate > 60; Glucose 91 mg/dL (65-110); Potassium 3.7 mmol/L (3.4-5.0); Sodium 136 mmol/L (137-145)
--- NOTE | 2025-01-08 07:02 | ADMGEN ---
This patient, Dre Yoder, was admitted to [facility] Surg Room 309-01. Patient/family oriented to hospital policies and general routines including ID bracelet, bed and alarms, visiting hours, pain management, procedures, bathroom and other care routines, personal items, smoking policy, room service/diet, and visiting hours. Information on how to activate the Rapid Response Team has been discussed. Patient/Family are encouraged to report perceived risks to care and to ask questions if they do not understand what they are told or what they should do.
--- NOTE | 2025-01-08 07:35 | P.PNIM_ITS ---
Progress Note: A&P Assessment and Plan (1) Left leg cellulitis: Code(s): L03.116 - Cellulitis of left lower limb Status: Acute Assessment and Plan: - afebrile, no leukocytosis - CT L tib/fib with no fluid collection, no signs of osteo - blood cultures pending - continue cefepime, vanc, Flagyl - de-escalate as able (2) Puncture wound of left lower extremity: Code(s): S81.832A - Puncture wound without foreign body, left lower leg, initial encounter Status: Acute Assessment and Plan: - wound care consulted (3) Diabetes mellitus treated with oral medication: Code(s): E11.9 - Type 2 diabetes mellitus without complications; Z79.84 - terminal make up operator (current) use of oral hypoglycemic drugs Status: Acute Assessment and Plan: - last Hgb A1c 5.0 11/2024 - managed on metformin,[place] - held - low dose SSI - monitor POCT glucose - hypoglycemia management protocol (4) Lumbar stenosis with neurogenic claudication: Code(s): M48.062 - Spinal stenosis, lumbar region with neurogenic claudication Status: Acute Assessment and Plan: - on [place] 10-325mg BID at home - continue home duloxetine, Requip (5) Nicotine dependence: Qualifiers: Nicotine product type: cigarettes Substance use status: uncomplicated Qualified Code(s): F17.210 - Nicotine dependence, cigarettes, uncomplicated Code(s): F17.200 - Nicotine dependence, unspecified, uncomplicated Status: Acute Assessment and Plan: - has no interest in quitting - declined nicotine patch L (6) Diastolic heart failure: Code(s): I50.30 - Unspecified diastolic (congestive) heart failure Status: Acute Assessment and Plan: - appears euvolemic - continue home spironolactone, lasix, home potassium supplementation Plan Disposition: home tomorrow if continues to improve Subjective Date/time seen: 01/08/25 07:35 Interval history: 64-year-old male with past medical history of diabetes mellitus obesity, spinal stenosis with lumbar claudication, cervical radiculopathy, hyperlipidemia, and diastolic congestive heart failure who presented to the ER from home due to worsening lower extremity wound. Patient seen and examined at bedside. Reports swelling is improving. Hopes to go home soon. Review of Systems Review of Systems: All systems reviewed & are unremarkable except as noted in HPI and below Exam Narrative: General: NAD Eyes: EOMI ENT: neck supple Cardiovascular: Regular rate and rhythm Respiratory: Clear to auscultation, respirations even and unlabored on RA Gastrointestinal: Soft, non tender Genitourinary: no suprapubic tenderness Musculoskeletal: No edema Skin: warm, dry, L anterior garcia with large wound with scab formation, no drainage, moderate amount of surrounding erythema and edema. Mild TTP. Neuro: Alert. Psych: Mood appropriate Objective Data Vital Signs Vital Signs: Vital Signs - 24 hr 01/07/25 16:13 01/07/25 16:23 01/07/25 16:26 Temperature 97.6 F Pulse Rate 62 80 Respiratory Rate 16 20 Blood Pressure 122/80 135/92 H Pulse Oximetry 99 97 98 Oxygen Delivery Room Air 01/07/25 16:37 01/07/25 16:45 01/07/25 16:46 Temperature Pulse Rate Respiratory Rate Blood Pressure 125/83 Pulse Oximetry 96 96 97 Oxygen Delivery 01/07/25 17:40 01/07/25 17:45 01/07/25 17:46 Temperature Pulse Rate Respiratory Rate Blood Pressure 115/81 Pulse Oximetry 98 97 96 Oxygen Delivery 01/07/25 18:10 01/07/25 19:01 01/07/25 19:16 Temperature Pulse Rate 72 66 69 Respiratory Rate 14 15 19 Blood Pressure 137/79 124/110 H Pulse Oximetry 98 99 97 Oxygen Delivery 01/07/25 19:31 01/07/25 19:46 01/07/25 21:31 Temperature Pulse Rate 62 72 69 Respiratory Rate 17 14 17 Blood Pressure 128/88 152/108 H 142/87 H Pulse Oximetry 99 100 99 Oxygen Delivery 01/07/25 23:24 01/08/25 06:00 Temperature 97.7 F Pulse Rate 65 Respiratory Rate 18 Blood Pressure 106/68 Pulse Oximetry 97 Oxygen Delivery Room Air Intake/Output Intake/Output: Intake & Output 01/05/25 01/06/25 01/07/25 01/08/25 23:59 23:59 23:59 23:59 Intake Total 4000 518.8 Balance 4000 518.8 Meds/Results Medications: Active Medications Generic Name Dose Route Start Last Admin Trade Name Freq PRN Reason Stop Dose Admin Hydrocodone Bitart/Acetaminophen 1 tab 01/08/25 00:30 01/08/25 03:12 Hydrocodone/Acetaminophen (*Crx) 10-325 Mg Tablet PO 1 tab Q6H PRN Administration Pain Rated 7-10 Atorvastatin Calcium 40 mg 01/08/25 09:00 Atorvastatin 40 Mg Tablet PO DAILY ALFRED Dextrose 12.5 gm 01/07/25 22:46 Dextrose 50% 25 Gm/50 Ml Syringe IV PUSH PRN PRN Hypoglycemia Protocol Docusate Sodium 100 mg 01/08/25 21:00 Docusate Sodium 100 Mg Capsule PO HS [facility] Duloxetine HCl 60 mg 01/08/25 09:00 Duloxetine Hcl 60 Mg Capsule.Dr PO DAILY [facility] Enoxaparin Sodium 40 mg 01/08/25 09:00 Enoxaparin 40 Mg/0.4 Ml Syringe SUB-Q DAILY [facility] Folic Acid 1 mg 01/08/25 09:00 Folic Acid 1 Mg Tablet PO DAILY [facility] Furosemide 80 mg 01/08/25 09:00 Furosemide 80 Mg Tablet PO BID [facility] Glucagon 1 mg 01/07/25 22:46 Glucagon For Inj 1 Mg Vial IM PRN PRN Hypoglycemia Protocol Glucose 15 gm 01/07/25 22:46 Glucose Oral Gel 15 Gm Of Glucse In 37.5 Gm Tube PO PRN PRN Hypoglycemia Protocol Hydromorphone HCl 1 mg 01/07/25 23:04 01/08/25 05:30 Hydromorphone Hcl Inj (*Crx) 1 Mg/Ml Syr IV PUSH 1 mg Q3H PRN Administration Breakthrough Pain Vancomycin HCl 1,500 mg in 500 mls @ 250 mls/hr 01/08/25 09:00 Vancomycin 1,500 Mg/Ns 500 Ml IVPB Q12H ALFRED Dextrose 1,000 mls @ 100 mls/hr 01/07/25 22:46 Dextrose 5% 1,000 Ml IVPB PRN PRN Hypoglycemia Protocol Cefepime HCl 2 gm/ Sodium 50 mls @ 100 mls/hr 01/08/25 06:00 01/08/25 05:50 Chloride IVPB Infused Q12H [facility] Infusion Metronidazole 500 mg in 100 mls @ 100 mls/hr 01/08/25 03:00 01/08/25 04:14 Flagyl 500 Mg/Iso Soln 100 Ml IVPB Infused Q8H [facility] Infusion Insulin Aspart 2 - 5 units 01/08/25 08:00 Insulin Aspart (*Bkc) 100 Units/Ml SUB-Q TIDWM [facility] Protocol Melatonin 10 mg 01/08/25 21:00 Melatonin 5 Mg Tablet PO HS [facility] Multivitamins/Calcium 1 tablet 01/08/25 09:00 Therapeutic Multivitamins/Minerals Tab (*Bkc) PO QAM [facility] Polyethylene Glycol 17 gm 01/08/25 00:25 Polyethylene Glycol 3350 17 Gm Powd.Pack PO BID PRN Constipation Potassium Chloride 40 meq 01/08/25 08:00 Potassium Chloride 20 Meq Er Tablet PO DAILY@0800 ALFRED Ropinirole HCl 0.5 mg 01/08/25 00:30 01/08/25 00:46 Ropinirole Hcl 0.5 Mg Tablet PO 0.5 mg HS ALFRED Administration Spironolactone 25 mg 01/08/25 09:00 Spironolactone 25 Mg Tablet PO DAILY ALFRED Trazodone HCl 50 mg 01/08/25 00:30 01/08/25 00:46 Trazodone Hcl 50 Mg Tablet PO 50 mg HS ALFRED Administration Radiology Results: ITS Impressions Tibia/Fibula X-Ray 01/07/25 19:50 IMPRESSION: 1: NO ACUTE BONE OR JOINT ABNORMALITY IDENTIFIED. Lower Extremity CT 01/08/25 07:19 IMPRESSION: 1. No significant abnormality of the left lower extremity. No evidence for osteomyelitis. If there is continuing clinical concern for osteomyelitis, dedicated MRI of the lower extremity with contrast recommended. Labs Labs: Laboratory Results - last 24 hr 01/07/25 01/07/25 01/07/25 17:30 17:32 18:05 WBC 8.8 RBC 5.18 Hgb 15.4 D Hct 46.2 MCV 89.2 MCH 29.7 MCHC 33.3 RDW 14.6 H Plt Count 328 MPV 9.2 Immature Gran % (Auto) 0.5 Neut % (Auto) 58.4 Lymph % (Auto) 28.6 [place] % (Auto) 8.1 Eos % (Auto) 3.6 Baso % (Auto) 0.8 Lymph # (Auto) 2.51 [place] # (Auto) 0.7 H Eos # (Auto) 0.3 Baso # (Auto) 0.1 Abs Immat Gran (auto) 0.04 H Absolute Neuts (auto) 5.1 Absolute Nucleated RBC 0.000 Nucleated RBC % 0.0 PT 14.0 INR 1.1 APTT 31.4 D-Dimer < 0.27 Sodium 136 L Potassium 3.7 Chloride 99 Carbon Dioxide 28 Anion Gap 9 BUN 11 D Creatinine 1.05 Estim Creat Clear Calc 83 Estimated GFR > 60 Glucose 94 POC Capillary Glucose 91 Lactic Acid 1.3 Calcium 9.6 Total Bilirubin 0.8 AST 34 ALT 15 Alkaline Phosphatase 99 C-Reactive Protein 1.6 H Total Protein 7.6 Albumin 4.4 Urine Color Yellow Urine Appearance Clear Urine pH 7.0 Ur Specific [place] 1.005 Urine Protein Negative Urine Glucose (UA) Negative Urine Ketones Negative Ur Blood (Man) Negative Urine Nitrate Negative Urine Bilirubin Negative Urine Urobilinogen 1.0 Leukocyte Esterase Rfl Negative Nasal MRSA (PCR) 01/07/25 01/08/25 01/08/25 23:04 00:35 05:08 WBC 7.4 RBC 4.62 Hgb 13.7 L Hct 42.1 MCV 91.1 MCH 29.7 MCHC 32.5 RDW 15.1 H Plt Count 297 MPV 9.5 Immature Gran % (Auto) 0.4 Neut % (Auto) 54.5 Lymph % (Auto) 29.2 [place] % (Auto) 9.7 H Eos % (Auto) 5.4 H Baso % (Auto) 0.8 Lymph # (Auto) 2.16 [place] # (Auto) 0.7 H Eos # (Auto) 0.4 H Baso # (Auto) 0.1 Abs Immat Gran (auto) 0.03 Absolute Neuts (auto) 4.0 Absolute Nucleated RBC 0.000 Nucleated RBC % 0.0 PT INR APTT D-Dimer Sodium 136 L Potassium 3.7 Chloride 105 Carbon Dioxide 26 Anion Gap 5 BUN 9 Creatinine 0.95 Estim Creat Clear Calc 92 Estimated GFR > 60 Glucose 91 POC Capillary Glucose 81 Lactic Acid Calcium 8.1 L Total Bilirubin AST ALT Alkaline Phosphatase C-Reactive Protein Total Protein Albumin Urine Color Urine Appearance Urine pH Ur Specific [place] Urine Protein Urine Glucose (UA) Urine Ketones Ur Blood (Man) Urine Nitrate Urine Bilirubin Urine Urobilinogen Leukocyte Esterase Rfl Nasal MRSA (PCR) Not detected Quality VTE Prophylaxis VTE prophylaxis: pharmacologic ordered (Lovenox 40 mg subQ daily.)
[2025-01-08] MEDS: VANCOMYCIN 1,500 MG/NS 500 ML 1,500 MG/500 ML BAG 250 MG IVPB (09:07)
[2025-01-08] MEDS: POTASSIUM CHLORIDE 20 MEQ ER TABLET 40 MEQ PO (09:09)
[2025-01-08] MEDS: DULoxetine HCL 60 MG CAPSULE.DR PO (09:10)
[2025-01-08] MEDS: FUROSEMIDE 80 MG TABLET PO ×2 (09:10→17:27)
[2025-01-08] MEDS: THERAPEUTIC MULTIVITAMINS/MINERALS TAB (*BKC) 1 TABLET PO (09:10)
[2025-01-08] MEDS: SPIRONOLACTONE 25 MG TABLET PO (09:10)
[2025-01-08] MEDS: ATORVASTATIN 40 MG TABLET PO (09:10)
[2025-01-08] MEDS: FOLIC ACID 1 MG TABLET PO (09:10)
[2025-01-08] MEDS: ENOXAPARIN 40 MG/0.4 ML SYRINGE SUB-Q (09:11)
[2025-01-08 11:45] VITALS: BMI 38.1
[2025-01-08] MEDS: COLLAGENASE OINT 30 GM TUBE 1 APPLIC TOPICAL (13:05)
[2025-01-08] MEDS: MUPIROCIN 2% OINT 22 GM TUBE 1 APPLIC TOPICAL (13:05)
[2025-01-08 13:55] VITALS: BP 126/87; PULSE 76; RESP 18; TEMP 36; O2SAT 99
[2025-01-08 20:41] VITALS: BP 123/82; PULSE 65; RESP 20; TEMP 36.5; O2SAT 98
[2025-01-08] MEDS: DOCUSATE SODIUM 100 MG CAPSULE PO (21:40)
[2025-01-08] MEDS: MELATONIN 5 MG TABLET 10 MG PO (21:41)
[2025-01-08] MEDS: SULFAMETHOXAZOLE/TRIMETHOPRIM 800/160 MG DS TABLET 1 TAB PO (21:42)
[2025-01-09 04:45] VITALS: BP 122/85; PULSE 56; RESP 18; TEMP 36.5; O2SAT 98
[2025-01-09 05:44] LABS: Hematocrit 47.0 % (42.0-52.0); Hemoglobin 15.4 g/dL (14.0-18.0); Immature Granulocyte Percent A 0.3 % (0-0.5); Lymphocytes Absolute Auto 1.48 K/mm3 (0.9-3.2); Mean Corpuscular HGB Conc 32.8 g/dl (32-36); Mean Corpuscular Hemoglobin 29.8 pg (26-34); Mean Corpuscular Volume 91.1 fl (80-100); Nucleated Red Blood Cells Absolute Auto 0.000 K/mm3 (0.0-0.012); Nucleated Red Blood Cells Perc 0.0 % (0.0-0.2); Platelet Count Result 317 k/mm3 (150-375); Red Blood Count 5.16 M/mm3 (4.6-6.20); White Blood Count 7.8 K/mm3 (4.5-10.0)
[2025-01-09] MEDS: FUROSEMIDE 80 MG TABLET PO (05:44)
[2025-01-09 06:08] LABS: Alanine Aminotransferase 11 U/L (6-50); Albumin Level 4.3 g/dL (3.5-5.1); Alkaline Phosphatase 100 U/L (38-126); Anion Gap 8 mmol/L (4-12); Aspartate Amino Transferase 22 U/L (17-59); Bilirubin,Total 1.1 mg/dL (0.2-1.3); Blood Urea Nitrogen 9 mg/dL (9-20); Calcium 8.9 mg/dL (8.4-10.2); Carbon Dioxide 26 mmol/L (22-30); Chloride 102 mmol/L (98-107); Estimated CRCL calculation 95 ml/min; Estimated Glomerular Filt Rate > 60; Glucose 91 mg/dL (65-110); Potassium 3.6 mmol/L (3.4-5.0); Sodium 136 mmol/L (137-145); Total Protein 7.3 g/dL (6.3-8.2)
[2025-01-09] MEDS: DULoxetine HCL 60 MG CAPSULE.DR PO (09:31)
[2025-01-09] MEDS: ATORVASTATIN 40 MG TABLET PO (09:31)
[2025-01-09] MEDS: THERAPEUTIC MULTIVITAMINS/MINERALS TAB (*BKC) 1 TABLET PO (09:31)
[2025-01-09] MEDS: SPIRONOLACTONE 25 MG TABLET PO (09:31)
[2025-01-09] MEDS: FOLIC ACID 1 MG TABLET PO (09:31)
[2025-01-09] MEDS: SULFAMETHOXAZOLE/TRIMETHOPRIM 800/160 MG DS TABLET 1 TAB PO (09:31)
[2025-01-09] MEDS: COLLAGENASE OINT 30 GM TUBE 1 APPLIC TOPICAL (10:05)
[2025-01-09] MEDS: MUPIROCIN 2% OINT 22 GM TUBE 1 APPLIC TOPICAL (10:05)
--- NOTE | 2025-01-09 10:21 | PM.DS ---
DS: Admitting Diagnosis Discharge Date 01/09/25 Admitting Diagnosis - LLE cellulitis - LLE wound DS: Discharge Diagnosis Discharge Diagnosis (1) Left leg cellulitis: Code(s): L03.116 - Cellulitis of left lower limb Status: Acute (2) Puncture wound of left lower extremity: Code(s): S81.832A - Puncture wound without foreign body, left lower leg, initial encounter Status: Acute (3) Diabetes mellitus treated with oral medication: Code(s): E11.9 - Type 2 diabetes mellitus without complications; Z79.84 - group home (current) use of oral hypoglycemic drugs Status: Acute (4) Lumbar stenosis with neurogenic claudication: Code(s): M48.062 - Spinal stenosis, lumbar region with neurogenic claudication Status: Acute (5) Nicotine dependence: Qualifiers: Nicotine product type: cigarettes Substance use status: uncomplicated Qualified Code(s): F17.210 - Nicotine dependence, cigarettes, uncomplicated Code(s): F17.200 - Nicotine dependence, unspecified, uncomplicated Status: Acute (6) Diastolic heart failure: Code(s): I50.30 - Unspecified diastolic (congestive) heart failure Status: Acute DS: Summary Hospital Course Reason for hospitalization: - LLE cellulitis - LLE wound Hospital Course: Patient is a 64 yo male with history of diabetes, tobacco use who presented with LLE swelling, redness and pain with an associated wound. In the ED, CT L tib/fib showed no concern for osteomyelitis or fluid collection. Patient was afebrile without leukocytosis and hemodynamically stable. He was started on broad-spectrum IV antibiotics and admitted for further management. While hospitalized, patient's swelling and erythema greatly improved. He remained hemodynamically stable. Wound was found to be healing without fluid collection with minimal purulent drainage. He was evaluated by Wound Care who recommended local wound care. Nursing provided wound care teaching prior to discharge. He was transitioned to p.o. Bactrim x 7 days and will follow up with his primary care provider as scheduled this Wednesday. He was instructed to hold his potassium supplement while on Bactrim to avoid hyperkalemia. K+ was 3.6 on day of discharge. Patient was discharged home in stable condition. Strict return precautions discussed. Status at Discharge Functional status at discharge: independent ambulation Time Spent with Patient Time attestation: Total time spent providing and/or coordinating discharge services: Time spent: Greater than 30 minutes Exam Narrative: General: NAD Eyes: EOMI ENT: neck supple Cardiovascular: Regular rate and rhythm Respiratory: Clear to auscultation, respirations even and unlabored on RA Gastrointestinal: Soft, non tender Genitourinary: no suprapubic tenderness Musculoskeletal: No edema Skin: warm, dry, L anterior garcia with large wound with scab formation, mild purulent drainage, mild amount of surrounding erythema and edema. No TTP. Neuro: Alert. Psych: Mood appropriate DS: Data Data Completed and Pending Completed studies during hospitalization: ITS Impressions Tibia/Fibula X-Ray 01/07/25 19:50 IMPRESSION: 1: NO ACUTE BONE OR JOINT ABNORMALITY IDENTIFIED. Lower Extremity CT 01/08/25 07:19 IMPRESSION: 1. No significant abnormality of the left lower extremity. No evidence for osteomyelitis. If there is continuing clinical concern for osteomyelitis, dedicated MRI of the lower extremity with contrast recommended. Labs on day of discharge: Labs from last 24 hours 01/09/25 01/09/25 01/08/25 07:38 05:06 20:43 WBC 7.8 RBC 5.16 Hgb 15.4 Hct 47.0 MCV 91.1 MCH 29.8 MCHC 32.8 RDW 14.8 H Plt Count 317 MPV 9.4 Immature Gran % (Auto) 0.3 Neut % (Auto) 66.2 Lymph % (Auto) 18.9 Antelope % (Auto) 9.3 H Eos % (Auto) 4.7 H Baso % (Auto) 0.6 Lymph # (Auto) 1.48 Antelope # (Auto) 0.7 H Eos # (Auto) 0.4 H Baso # (Auto) 0.1 Abs Immat Gran (auto) 0.02 Absolute Neuts (auto) 5.2 Absolute Nucleated RBC 0.000 Nucleated RBC % 0.0 Sodium 136 L Potassium 3.6 Chloride 102 Carbon Dioxide 26 Anion Gap 8 BUN 9 Creatinine 0.92 Estim Creat Clear Calc 95 Estimated GFR > 60 Glucose 91 POC Capillary Glucose 104 95 Calcium 8.9 Total Bilirubin 1.1 AST 22 ALT 11 Alkaline Phosphatase 100 Total Protein 7.3 Albumin 4.3 01/08/25 01/08/25 16:24 11:45 WBC RBC Hgb Hct MCV MCH MCHC RDW Plt Count MPV Immature Gran % (Auto) Neut % (Auto) Lymph % (Auto) Antelope % (Auto) Eos % (Auto) Baso % (Auto) Lymph # (Auto) Antelope # (Auto) Eos # (Auto) Baso # (Auto) Abs Immat Gran (auto) Absolute Neuts (auto) Absolute Nucleated RBC Nucleated RBC % Sodium Potassium Chloride Carbon Dioxide Anion Gap BUN Creatinine Estim Creat Clear Calc Estimated GFR Glucose POC Capillary Glucose 96 87 Calcium Total Bilirubin AST ALT Alkaline Phosphatase Total Protein Albumin Discharge Plan Discharge Attending physician on discharge: Abdoulaye Benavides Consulting providers: Magali Gaviria Discharging Clinician: Magali Gaviria Anticipated Discharge Date/Time: 01/09/25 10:20 Patient Disposition: Home Activity: may shower Diet: regular Wound Care Instructions: follow printed instructions Discharge Instructions: Take all medications as prescribed. Finish antibiotics if prescribed, even if you are feeling better. HOLD potassium until 24 hours after your last dose of Bactrim as Bactrim can increase your potassium levels. Watch your wound for any increasing swelling, redness, drainage. Return to the emergency department if redness or swelling worsens or you develop fevers, chills, nausea/vomiting, severe fatigue. Wound care: cleanse left leg wound daily with soap and water. Apply thin layer of mupirocin ointment and then thick layer of Santyl ointment. Cover with vaseline gauze, ABD pad, and kerlix dressing. Follow-up with your primary care provider as scheduled. Call them to let them know you were in the hospital and need your wound checked. Return to the emergency department if you develop chest pain, shortness of breath, persistent fever >100.4, confusion, loss of consciousness. Patient Instructions: Antibiotic Form, Heart Failure (GEN), Cellulitis (GEN) Patient Language: Slovenian Stand Alone Forms: General Discharge Information Follow-up/Referrals: Lopez Sapp MD [Primary Care Provider, Hospitalist] - Keep Reg. Scheduled Appt. Referral Note: wound check Discharge Medications: New sulfamethoxazole-trimethoprim [Bactrim DS] 800-160 mg tablet 1 tablet PO Q12H Qty: 14 0RF Santyl 250 unit/gram ointment 1 applic topical DAILY Qty: 90 0RF mupirocin [Centany] 2 % ointment 1 applic topical DAILY Qty: 22 0RF Santyl 250 unit/gram Ointment 1 applic topical QAM Qty: 22 0RF Continued polyethylene glycol 3350 [Miralax] 17 gram Powder In Packet 17 g PO BID PRN (Reason: Constipation) Qty: 14 0RF furosemide 80 mg Tablet 80 mg PO BID Qty: 60 0RF folic acid 1 mg Tablet 1 mg PO DAILY Qty: 90 0RF Thera M Plus (ferrous fumarat) 9 mg iron-400 mcg Tablet 1 tablet PO QAM Qty: 60 0RF trazodone 50 mg tablet 50 mg PO HS duloxetine 60 mg capsule,delayed release(DR/EC) 60 mg PO DAILY atorvastatin 40 mg tablet 40 mg PO DAILY spironolactone 25 mg tablet 25 mg PO DAILY ropinirole 0.5 mg tablet 0.5 mg PO HS docusate sodium 100 mg Capsule 100 mg PO HS hydrocodone-acetaminophen 10-325 mg tablet 1 tablet PO BID metformin 500 mg tablet extended release 24 hr 500 mg PO .evening naproxen 500 mg tablet 500 mg PO BID Mounjaro 2.5 mg/0.5 mL pen injector 2.5 mg SUBCUT .wednesday melatonin 5 mg Tablet 10 mg PO HS testosterone cypionate 200 mg/mL oil 200 mg IM .Every Other Wednesday Held potassium chloride [K-Tab] 20 mEq Tablet Extended Release 40 meq PO DAILY@0800 Qty: 30 0RF Hold Instructions: Resume on 01/16/25. Date of admission: 01/07/25 22:05 Primary Care Provider: Lopez Sapp Admitting Provider: Lilibeth Mcgee Attending physician on admission: Lilibeth Mcgee Condition: Stable
--- NOTE | 2025-01-09 10:27 | PC.NURSE ---
Received pt from Yasmeen, with report that pt had fired her. Upon entering room, pt states, I'm not sure why I'm being kept here with these things, referring to his IV's. I asked if they were hurting him. He stated no. I offered to remove one, but he stated no they were fine. He just wants out of here. Pt appeared anxious, agitated and frustrated. I offered to get him a nicotine patch. Pt refused. LVM with provider. Ellen to pt room to talk with pt. Ellen requested that we call Derek to further speed up discharge process. Call made to Derek. This RN and provider to pt room. Dressing changed, education provided regarding signs and symptoms of worsening infection, dressing changes, and medications. Pt resting comfortably in bed. IVs removed. Awaiting discharge order to process discharge.
--- NOTE | 2025-01-24 10:15 | PCCDE ---
Home Phone - apparently mislabeled in summary due to reached partner out of home. DM Educator courtesy follow up call placed. Partner states he's doing well, declined taking my number.
== END 2025-01-09 10:55 | disposition home or self-care (01) ==
LOC: ANHED 16:35 → ANH3MEDSUR 23:26
PROVIDERS: Physician Assistant; Admitting Provider Internal Medicine; Emergency Provider Registered Nurse; PCP Internal Medicine; Visit Provider Internal Medicine
DX: S81.832A Puncture wound without foreign body, left lower leg, initial encounter (principal); L03.116 Cellulitis of left lower limb; W45.0XXA Nail entering through skin, initial encounter; E11.9 Type 2 diabetes mellitus without complications; Z79.4 Long term (current) use of insulin; M48.062 Spinal stenosis, lumbar region with neurogenic claudication; F17.210 Nicotine dependence, cigarettes, uncomplicated; G89.29 Other chronic pain; Z86.718 Personal history of other venous thrombosis and embolism; I50.32 Chronic diastolic (congestive) heart failure; Z86.711 Personal history of pulmonary embolism; Z79.85 Long-term (current) use of injectable non-insulin antidiabetic drugs; E78.5 Hyperlipidemia, unspecified; E66.9 Obesity, unspecified; Z68.38 Body mass index [BMI] 38.0-38.9, adult; Z23 Encounter for immunization
CPT/HCPCS: 36415; 73590; 73701; 80048; 80053; 81003; 82948; 83605; 85025; 85380; 85610; 85730; 86140; 87641; 90471; 90715; 96361; 96365; 96366; 96367; 96372; 96375; 99212; 99285; A9270; G0378; G0463; J0692; J1171; J1650; J1836; J3373; J7030; Q9967